=== PATIENT | male | born 1950 | race Caucasian/White ===

== ENCOUNTER 2017-11-14 15:07 | Emergency (ER) | payer OTHER, SELFPAY ==
[2017-11-14 15:08] VITALS: PULSE 70; RESP 15; TEMP 36.8; BMI 26.2
[2017-11-14 15:14] VITALS: BP 146/84; O2SAT 96
--- NOTE | 2017-11-14 15:50 | ED.VISSUMM ---
- ER Visit Summary Date of Service: 11/14/17 Chief Complaint: Chest pain History of Present Illness: The patient is a 67 M presenting with chest pain. Patient states this started a week ago and has been intermittent. He states over the last day it has worsened. Pain is in the left chest and occasionally radiates to both arms and his neck. He states currently the pain is 0/10. At its worst it is 8/10. He denies nausea, vomiting, diaphoresis, shortness of breath. He was admitted to the hospital in January 2017 after a femur fracture. He was found to have an abnormal EKG at that time and underwent heart catheterization per Dr. Choe. This showed proximal LAD occlusion with collateral flow. EF 45-50% with anterior hypokinesis. Depressed LV systolic function. Left main, circumflex, RCA were angiographically normal. At that time he was transferred to [facility] for interventional cardiology and operative repair of his femur. Patient states when he was at [facility] they repaired his femur but did not address his heart. His course was complicated by postoperative PE. He was on Xarelto for 4 months. He no longer takes any medications, he states he did not like the way that Lopressor made him feel. Physical Examination: Vitals are stable. Patient is afebrile. Alert no acute distress. HEENT exam is unremarkable. Neck is supple. Lungs are clear and equal bilaterally. Heart is regular rate and rhythm. Abdomen is soft nontender nondistended. Extremities are unremarkable. Skin is warm and dry. No focal neurologic deficit. Remainder of exam is unremarkable. Emergency Department Course and Treatment: Patient was given aspirin on arrival. EKG is sinus rate is 71 with anterior biphasic T-wave concerning for [facility], similar to previous. CBC, chemistries unremarkable. Troponin is negative. Chest x-ray shows no acute process. On reevaluation patient is chest pain-free. Discussed with Dr. Vásquez. He feels the patient will require high risk PCI. He recommends transfer to [facility]. Discussed with [facility] for transfer. Disposition: Transfer [facility] Impression: Chest pain, unstable angina This note was generated with [employer] dictation software. It may contain incorrect words, spelling, and punctuation that were not noted in review of the chart prior to signing ED Disposition - Plan for ED Patient: Chief Complaint: Chest Pain Referrals: Care Physician,Malou Primary [NON-STAFF] -
[2017-11-14] MEDS: Aspirin 81 MG TAB.CHEW 324 MG PO (15:51)
[2017-11-14 15:52] VITALS: O2SAT 97
--- NOTE | 2017-11-14 15:56 | NURSING ---
FAXED RELEASE OF INFO TO [facility]
[2017-11-14 16:02] LABS: Absolute Neutrophil Count 4.6 X10^3/uL (2.0-7.7); Basophil# 0.03 X10^3/uL; Basophil% 0.4 % (0-1); Eosinophil# 0.31 X10^3/uL; Eosinophils% 4.3 % (0-5); Hematocrit 41.2 % (40-54); Hemoglobin 13.2 g/dl (13.0-16.5); Lymphocyte % 23.5 % (19-41); Mean Corpuscular Hgb 28.8 pg (27.0-32.0); Mean Platelet Vol. 11.2 fl (6.2-12.0); Monocyte# 0.57 X10^3/uL; Monocyte% 7.9 % (0-10); Neutrophil # 4.62 X10^3/uL (2.7-7.7); Neutrophil % 63.9 % (47-70); Platelet Count 238 K/mm3 (150-450); RBC Distribution Width CV 14.5 % (11.6-14.6); RBC Distribution Width SD 47.5 fl (35.1-43.9); Red Blood Count 4.58 M/mm3 (4.6-6.2); White Blood Count 7.2 K/mm3 (4.4-11.0)
[2017-11-14 16:04] LABS: POSITIVE COUNT NO; POSITIVE DIFFERENTIAL NO; POSITIVE MORPHOLOGY NO
[2017-11-14 16:13] LABS: Anion Gap 6 (5-15); BUN 19 mg/dL (7-18); BUN/Creat Ratio 19.8 RATIO (10-20); Calcium,Total 9.2 mg/dL (8.5-10.1); Chloride 108 mmol/L (98-107); Creatinine, Serum 0.96 mg/dL (0.70-1.30); EST Glomerular Filtration Rate 84 mL/min (>60); Est Glom Filt Rate - Afr Amer 101 mL/min (>60); Estimated Creatinine Clearance 74.22 ml/min; Glucose 91 mg/dL (74-106); Potassium 4.5 mmol/L (3.5-5.1); Sodium Level 140 mmol/L (136-145)
[2017-11-14 17:00] VITALS: BP 145/86; PULSE 65; RESP 17; O2SAT 96
[2017-11-14 18:52] VITALS: BP 162/90; PULSE 73; RESP 16; O2SAT 98
[2017-11-14 19:29] VITALS: BP 153/83; PULSE 75; RESP 18; O2SAT 96
== END 2017-11-14 19:46 | disposition short-term general hospital (02) ==
PROVIDERS: Emergency Provider Emergency Medicine; Family Provider Student in an Organized Health Care Education/Training Program; PCP Student in an Organized Health Care Education/Training Program
DX: I20.0 Unstable angina (principal); Z86.711 Personal history of pulmonary embolism
CPT/HCPCS: 71045; 80048; 84484; 85025; 93005; 99285; J7030; A4216

== ENCOUNTER 2017-11-29 08:21 | Emergency (ER) | payer OTHER, SELFPAY ==
[2017-11-29 08:22] VITALS: BP 123/65; PULSE 75; RESP 18; TEMP 37.1; O2SAT 98; BMI 25.0
--- NOTE | 2017-11-29 08:35 | ED.VISSUMM ---
- ER Visit Summary Date of Service: 11/29/17 Chief Complaint: Left thoracic back pain History of Present Illness: The patient is a 67 M with a recent bypass surgery on November 17 presents with left back pain that started yesterday. He has been using his arms more often. He has no fever chills no cough no chest pain or shortness of breath. The pain does extend into his left posterior shoulder region. He feels like it is a muscle spasm. He has no abdominal pain. Pain is worse with twisting and moving it is mild to moderate and constant. Physical Examination: Not appear in acute distress. Moist mucous membranes, no obvious facial deformity No C-spine tenderness supple neck. Regular rate and rhythm without any obvious murmurs. There is a relatively new scar over the anterior chest wall region this is healing well without any signs of infection. Clear lungs bilaterally speaking in full sentences without any obvious respiratory distress Abdomen soft and nontender no guarding or rebound Moves all extremities without any difficulty or pain. He has reproducible pain over his left trapezius and upper back region. There is muscle spasm on my examination compared to the other side. Skin does not show any obvious rashes or lesions, no trauma. Alert oriented ?3 with no gross focal deficit Emergency Department Course and Treatment: Patient had an unremarkable workup. Clinically patient has trapezius strain, thoracic strain. Because of the recent surgery x-ray and blood work were obtained, these were unremarkable. He is discharged with reassurance. Discharge stable condition Impression: [Thoracic strain] This note was generated with [employer] dictation software. It may contain incorrect words, spelling, and punctuation that were not noted in review of the chart prior to signing ED Disposition - Plan for ED Patient: Chief Complaint: Back Referrals: Nichelle Patel MD [Primary Care Provider] -
[2017-11-29 08:37] VITALS: BP 135/80; PULSE 70; RESP 18; O2SAT 99
[2017-11-29 08:45] LABS: Absolute Lymphocyte Count 1.79 X10^3/ul (0.83-4.51); Absolute Neutrophil Count 7.1 X10^3/uL (2.0-7.7); Basophil# 0.05 X10^3/uL; Basophil% 0.5 % (0-1); Eosinophil# 0.65 X10^3/uL; Eosinophils% 6.1 % (0-5); Hematocrit 37.6 % (40-54); Hemoglobin 11.8 g/dl (13.0-16.5); Lymphocyte # 1.79 X10^3/ul (4.0); Lymphocyte % 16.9 % (19-41); Mean Corp Hgb Conc 31.4 g/gl (32-36); Mean Corpuscular Hgb 28.8 pg (27.0-32.0); Mean Corpuscular Volume 91.7 fL (80-94); Mean Platelet Vol. 9.2 fl (6.2-12.0); Monocyte# 0.98 X10^3/uL; Monocyte% 9.3 % (0-10); Neutrophil # 7.07 X10^3/uL (2.7-7.7); Neutrophil % 66.7 % (47-70); Platelet Count 606 K/mm3 (150-450); RBC Distribution Width CV 13.8 % (11.6-14.6); RBC Distribution Width SD 45.3 fl (35.1-43.9); White Blood Count 10.6 K/mm3 (4.4-11.0)
[2017-11-29 08:50] LABS: POSITIVE COUNT NO; POSITIVE DIFFERENTIAL NO; POSITIVE MORPHOLOGY NO
[2017-11-29 08:57] LABS: ALB/GLOB Ratio 0.8 RATIO (0.9-2.4); AST(SGOT) 17 U/L (15-37); Alanine Aminotransfer ALT/SGPT 63 U/L (16-61); Albumin, Serum 3.4 g/dL (3.2-5.0); Alkaline Phosphatase 166 U/L (45-117); Anion Gap 11 (5-15); BUN 14 mg/dL (7-18); BUN/Creat Ratio 15.9 RATIO (10-20); Chloride 102 mmol/L (98-107); Creatinine, Serum 0.88 mg/dL (0.70-1.30); EST Glomerular Filtration Rate 92 mL/min (>60); Est Glom Filt Rate - Afr Amer 111 mL/min (>60); Estimated Creatinine Clearance 80.97 ml/min; Globulin 4.3 g/dL (2.2-4.2); Glucose 88 mg/dL (74-106); Potassium 4.1 mmol/L (3.5-5.1); Protein, Total 7.7 g/dL (6.4-8.2); Sodium Level 142 mmol/L (136-145)
--- NOTE | 2017-11-29 09:25 | ED.DEP ---
ED Disposition - Plan for ED Patient: Disposition: Home or Assisted Living Chief Complaint: Back Instructions: ED Sprain Thoracic Spine Referrals: Nichelle Patel MD [Primary Care Provider] -
[2017-11-29 09:35] VITALS: BP 127/77; PULSE 69; RESP 15; O2SAT 97
== END 2017-11-29 09:36 | disposition home or self-care (01) ==
PROVIDERS: Emergency Provider Emergency Medicine; Family Provider Student in an Organized Health Care Education/Training Program; PCP Student in an Organized Health Care Education/Training Program
DX: S29.012A Strain of muscle and tendon of back wall of thorax, initial encounter (principal); M62.830 Muscle spasm of back; X58.XXXA Exposure to other specified factors, initial encounter; Y93.9 Activity, unspecified; Y92.9 Unspecified place or not applicable; I25.10 Atherosclerotic heart disease of native coronary artery without angina pectoris; I10 Essential (primary) hypertension; Z86.39 Personal history of other endocrine, nutritional and metabolic disease; Z95.1 Presence of aortocoronary bypass graft; Z79.899 Other long term (current) drug therapy
CPT/HCPCS: 71045; 80053; 85025; 93005; 99283; A4216

== ENCOUNTER 2018-06-24 07:01 | Inpatient (IN) | payer OTHER, SELFPAY ==
[2018-06-24] VITALS (15 sets, daily range): BP systolic 114–158; BP diastolic 63–99; PULSE 59–78; RESP 16–18; TEMP 36.3–37; O2SAT 94–100; BMI 21.0; BMI 27.1; BMI 27.2
--- NOTE | 2018-06-24 07:06 | EKG12_ITS ---
Test Reason : CP Blood Pressure : / mmHG Vent. Rate : 081 BPM Atrial Rate : 081 BPM P-R Int : 164 ms QRS Dur : 086 ms QT Int : 370 ms P-R-T Axes : 063 038 086 degrees QTc Int : 429 ms Normal sinus rhythm T wave abnormality, consider lateral ischemia Abnormal ECG Confirmed by LOUIE RIBERA, BLANCA ([id number]), pictures editor DANILO VELASQUEZ ([id number]) on 06/27/2018 10:59:31 AM Referred By: LALITHA Confirmed By:BLANCA PALMA MD
--- NOTE | 2018-06-24 07:06 | RAD_ITS ---
STUDY: X-RAY CHEST REASON FOR EXAM: Male, 68 years old. Chest pain. TECHNIQUE: Single AP portable view of the chest. COMPARISON: November 29, 2017. FINDINGS: Cardiac monitoring leads are present. Patient is status post sternotomy. The lungs are clear and hyperexpanded. There is no demonstrated pleural abnormality. Normal size heart. Normal mediastinum and mary. Normal visualized pulmonary arteries. There is atherosclerotic calcification of the aortic arch with tortuosity. Normal visualized thoracic spine. Normal visualized ribs, clavicles, and shoulders. There is no demonstrated abnormality of the visualized soft tissue structures of the upper abdomen. RAD/Chest 1 View (Portable) IMPRESSION: No radiographic evidence of acute cardiopulmonary disease. Electronically Signed: Tamera Owens MD at 9:01 EDT , Service support ,
[2018-06-24] MEDS: Aspirin 81 MG TAB.CHEW 324 MG PO (07:15)
[2018-06-24 07:19] LABS: Absolute Lymphocyte Count 1.76 X10^3/ul (0.83-4.51); Absolute Neutrophil Count 3.3 X10^3/uL (2.0-7.7); Basophil# 0.03 X10^3/uL; Basophil% 0.5 % (0-1); Eosinophil# 0.22 X10^3/uL; Eosinophils% 3.9 % (0-5); Hematocrit 42.4 % (40-54); Hemoglobin 14.1 g/dl (13.0-16.5); Lymphocyte # 1.76 X10^3/ul (4.0); Lymphocyte % 30.9 % (19-41); Mean Corp Hgb Conc 33.3 g/gl (32-36); Mean Corpuscular Hgb 29.6 pg (27.0-32.0); Mean Corpuscular Volume 89.1 fL (80-94); Mean Platelet Vol. 10.3 fl (6.2-12.0); Monocyte# 0.42 X10^3/uL; Monocyte% 7.4 % (0-10); Neutrophil # 3.27 X10^3/uL (2.7-7.7); Neutrophil % 57.3 % (47-70); Platelet Count 220 K/mm3 (150-450); RBC Distribution Width CV 13.7 % (11.6-14.6); RBC Distribution Width SD 44.9 fl (35.1-43.9); Red Blood Count 4.76 M/mm3 (4.6-6.2); White Blood Count 5.7 K/mm3 (4.4-11.0)
[2018-06-24 07:21] LABS: POSITIVE COUNT NO; POSITIVE DIFFERENTIAL NO; POSITIVE MORPHOLOGY NO
--- NOTE | 2018-06-24 07:40 | ED.VIS.CHEST ---
History of Present Illness Chief Complaint: Chest Pain Informant: Patient Onset: Days Activity at onset: Unknown - Patient is a poor informant. He is unable to qualitate the pain. After giving examples he still had difficulty. He reports at times is burning. At times it squeezing. 2 days ago the discomfort he experienced was similar to the discomfort he had prior to his two-vessel bypass surgery. He had coronary bypass surgery October 2017. Quality: Aching, Burning, Tightness Location: Substernal Current Severity: Mild Maximum Severity: Severe Worsened By: - - Is tired Relieved By: Nothing Associated Symptoms: Diaphoresis, Dyspnea. Negative for: Cough, Fever, Lightheadedness, Acid Reflux, Palpitations Narrative: Patient is an elderly male who presents because of chest pain that started several days ago. Initially he stated the pain was constant. He then commented it was not. Then he made the comment it waxes and wanes. Patient had difficulty describing what the discomfort felt like. After he was given numerous examples to help him he still had difficulty. He then was given more specific examples and states it is at times burning. At times it is tightness. There was occasion with shortness of breath and possible diaphoresis. Patient presently having discomfort. Patient was unaware that he is on a cholesterol medication. He states he is compliant with his medications. He denies symptoms of claudication. Prior Similar Symptoms: Yes, With Prior Angina Recent Illness/Hospitalization: No - Past Medical History (1) Atherosclerotic heart disease of [place] coronary artery without angina pectoris Status: Chronic Comment: Pedicled ARZOLA graft to LAD, SVG to ramus branch(diagonal) per Dr. Enrique Baltazar @ [facility] (2) Essential (primary) hypertension Status: Chronic (3) Nonrheumatic mitral valve regurgitation Status: Chronic Comment: 1+ per echo 11/15/17 @ [facility]; EF 55-60%, (4) Pure hypercholesterolemia Status: Chronic (5) S/P CABG x 2 Status: Chronic Comment: Pedicled ARZOLA graft to LAD, SVG to ramus branch(diagonal) per Dr. Enrique Baltazar @ [facility] (6) Unstable angina Status: Resolved Past Medical History - Allergies and Home Meds Allergies/Adverse Reactions: Allergies No Known Allergies Allergy (Verified 06/24/18 07:01) Primary Care Physician: Nichelle Patel MD [Primary Care Provider] - Prior records reviewed: Yes - In addition to medical problems listed by patient he does have hypertension Surgical History: coronary bypass surgery - October 2017, two-vessel Lives: Spouse/ Significant Other Smoking Status: Never smoker Alcohol: None Drugs: None - Family History Maternal Family History: Family History (Last Updated 12/27/17 @ 09:32 by Anna Marie Lai) Father Colon cancer CVA (cerebral vascular accident) Family History: Reports: No pertinent history Paternal Family History: Family History (Last Updated 12/27/17 @ 09:32 by Anna Marie Lai) Father Colon cancer CVA (cerebral vascular accident) Family History: Reports: No pertinent history Review of Systems General: Denies: Chills, Fever, Sweats Eyes: Denies: Visual changes - bilaterally, Blurred Vision - bilaterally, Diplopia ENT: Denies: Rhinorrhea, Sore throat Cardiovascular: Reports: Chest pain Respiratory: Reports: Dyspnea, Dyspnea on exertion, Orthopnea - Chronic 2 pillow orthopnea. Denies: Cough Gastrointestinal: Denies: Abdominal pain, Nausea, Vomiting, Diarrhea, Melena, Hematochezia Genitourinary: Denies: Dysuria, Hematuria, Frequency Musculoskeletal: Denies: Back pain, Extremity Pain Skin: Denies: Rash, Wounds Neurological: Denies: Headache, Weakness, Parasthesia, Numbness, -, - Allergy: Denies: Uticaria, Swelling of the mouth, Swelling of the tongue, -, - Physical Exam Vital Signs/Narrative: Vital Signs Temp Pulse Resp BP Pulse Ox 06/24/18 07:33 96 06/24/18 07:26 78 148/89 H 06/24/18 07:02 97.9 F 75 18 158/99 H 97 Inital Vital Signs reviewed: Yes General: Well nourished, Well developed, No Acute Distress Head: Normocephalic, Atraumatic Eyes: Perrl, EOMI. Negative for: Pale conjunctiva, Scleral icterus ENT: Moist mucous membranes, No rhinorrhea Neck: Supple, Nontender, No lymphadenopathy, No JVD Cardiovascular: Regular rate, Regular rhythm, No murmurs, Normal S1, Normal S2 Respiratory: No distress, CTA bilaterally, Chest nontender Abdomen: Soft, Nontender, Nondistended, Normal bowel sounds, No masses. Negative for: Tender, Hepatomegaly, Splenomegaly, Pulsatile mass Back: Nontender, Normal Inspection Extremities: Nontender - DP and PT pulse palpable. Patient has hair on his toes., No edema Skin: Normal color, No rash. Negative for: Cyanosis, Jaundice Neurological: Alert, Oriented x3, Cranial nerves II-XII grossly intact, Normal Strength, Normal Sensation Psychological: Normal affect, Normal Mood Diagnostic/Tx/Re-eval Chest X-Ray - ED: 1 View, Normal, Heart, Lungs, Mediastinum, Bony Structures, No Acute Disease, - - Sternal wires noted. 06/24/18 07:06 Chest 1 View (Portable) [RAD] Stat Laboratory Results 06/24/18 06/24/18 07:00 07:00 WBC 5.7 RBC 4.76 Hgb 14.1 Hct 42.4 MCV 89.1 MCH 29.6 MCHC 33.3 RDW 13.7 RDW Differential 44.9 H Plt Count 220 MPV 10.3 Immature Gran % (Auto) 0.000 Neut % (Auto) 57.3 Lymph % (Auto) 30.9 [place] % (Auto) 7.4 Eos % (Auto) 3.9 Baso % (Auto) 0.5 Absolute Neuts (auto) 3.3 Absolute Lymphs (auto) 1.76 Total Counted Not Reportable Sodium 141 Potassium 3.7 Chloride 107 Carbon Dioxide 26.0 Anion Gap 8 BUN 14 Creatinine 0.99 Estim Creat Clear Calc 71.01 Est GFR (MDRD) Af Amer 97 Est GFR (MDRD) Non-Af 80 BUN/Creatinine Ratio 14.1 Glucose 108 H Calcium 8.8 Troponin I < 0.015 - Rhythm Strip Rhythm Strip: Sinus Rhythm Rate: 77 Ectopy: None - EKG Initial EKG Interpretation: Sinus Rhythm - Ventricular rate is 81. MI interval is within normal limits, 164 ms. QRS duration normal. QT interval normal. [place] normal. There are lateral ischemic changes and will need old EKG for comparison. Treatment: Aspirin, NTG SL - Medical Decision Making Patient is a poor informant. There are parts of his history that are concerning for cardiac disease and especially the fact that he reports he had an episode 2 days ago that was similar to the pain he had prior to his two-vessel bypass surgery. Need to evaluate for cardiac etiology versus GI etiology versus pulmonary. Case was discussed with Dr. Vásquez. He was informed the patient's history, physical findings and cath report by Dr. Choe. Did not have access to operative report and cath report from [facility]. In light of patient's history, past medical history and concerns that this represents coronary disease he will receive 1 mg/kg of Lovenox subcu. Dr. Vásquez will review records from [facility] and determine if stress test is warranted versus cardiac cath. Patient was informed I spoke with Dr. Bubba Vásquez. He was informed that he would be staying in the hospital. The hospitalist was made aware of patient's history, physical and discussion with Dr. Vásquez. ED Disposition - Plan for ED Patient: Disposition: Acute Care Hospital [facility] Diagnosis: Central chest pain, Atherosclerotic heart disease of [place] coronary artery without angina pectoris, Essential (primary) hypertension, Pure hypercholesterolemia, Nonrheumatic mitral valve regurgitation Referrals: Nichelle Patel MD [Primary Care Provider] -
[2018-06-24 07:48] LABS: Anion Gap 8 (5-15); BUN 14 mg/dL (7-18); BUN/Creat Ratio 14.1 RATIO (10-20); Calcium,Total 8.8 mg/dL (8.5-10.1); Chloride 107 mmol/L (98-107); Creatinine, Serum 0.99 mg/dL (0.70-1.30); EST Glomerular Filtration Rate 80 mL/min (>60); Est Glom Filt Rate - Afr Amer 97 mL/min (>60); Estimated Creatinine Clearance 71.01 ml/min; Glucose 108 mg/dL (74-106); Potassium 3.7 mmol/L (3.5-5.1); Sodium Level 141 mmol/L (136-145)
--- NOTE | 2018-06-24 07:50 | ED.DCSUM_ITS ---
History of Present Illness Chief Complaint: Chest Pain Informant: Patient Onset: Days Activity at onset: Unknown - Patient is a poor informant. He is unable to qualitate the pain. After giving examples he still had difficulty. He reports at times is burning. At times it squeezing. 2 days ago the discomfort he experienced was similar to the discomfort he had prior to his two-vessel bypass surgery. He had coronary bypass surgery October 2017. Quality: Aching, Burning, Tightness Location: Substernal Current Severity: Mild Maximum Severity: Severe Worsened By: - - Is tired Relieved By: Nothing Associated Symptoms: Diaphoresis, Dyspnea. Negative for: Cough, Fever, Lightheadedness, Acid Reflux, Palpitations Narrative: Patient is an elderly male who presents because of chest pain that started several days ago. Initially he stated the pain was constant. He then commented it was not. Then he made the comment it waxes and wanes. Patient had difficulty describing what the discomfort felt like. After he was given numerous examples to help him he still had difficulty. He then was given more specific examples and states it is at times burning. At times it is tightness. There was occasion with shortness of breath and possible diaphoresis. Patient presently having discomfort. Patient was unaware that he is on a cholesterol medication. He states he is compliant with his medications. He denies symptoms of claudication. Prior Similar Symptoms: Yes, With Prior Angina Recent Illness/Hospitalization: No - Past Medical History (1) Atherosclerotic heart disease of [place] coronary artery without angina pectoris Status: Chronic Comment: Pedicled ARZOLA graft to LAD, SVG to ramus branch(diagonal) per Dr. Enrique Baltazar @ [facility] (2) Essential (primary) hypertension Status: Chronic (3) Nonrheumatic mitral valve regurgitation Status: Chronic Comment: 1+ per echo 11/15/17 @ [facility]; EF 55-60%, (4) Pure hypercholesterolemia Status: Chronic (5) S/P CABG x 2 Status: Chronic Comment: Pedicled ARZOLA graft to LAD, SVG to ramus branch(diagonal) per Dr. Enrique Baltazar @ [facility] (6) Unstable angina Status: Resolved Past Medical History - Allergies and Home Meds Allergies/Adverse Reactions: Allergies No Known Allergies Allergy (Verified 06/24/18 07:01) Primary Care Physician: Nichelle Patel MD [Primary Care Provider] - Prior records reviewed: Yes - In addition to medical problems listed by patient he does have hypertension Surgical History: coronary bypass surgery - October 2017, two-vessel Lives: Spouse/ Significant Other Smoking Status: Never smoker Alcohol: None Drugs: None - Family History Maternal Family History: Family History (Last Updated 12/27/17 @ 09:32 by Anna Marie Lai) Father Colon cancer CVA (cerebral vascular accident) Family History: Reports: No pertinent history Paternal Family History: Family History (Last Updated 12/27/17 @ 09:32 by Anna Marie Lai) Father Colon cancer CVA (cerebral vascular accident) Family History: Reports: No pertinent history Review of Systems General: Denies: Chills, Fever, Sweats Eyes: Denies: Visual changes - bilaterally, Blurred Vision - bilaterally, Diplopia ENT: Denies: Rhinorrhea, Sore throat Cardiovascular: Reports: Chest pain Respiratory: Reports: Dyspnea, Dyspnea on exertion, Orthopnea - Chronic 2 pillow orthopnea. Denies: Cough Gastrointestinal: Denies: Abdominal pain, Nausea, Vomiting, Diarrhea, Melena, Hematochezia Genitourinary: Denies: Dysuria, Hematuria, Frequency Musculoskeletal: Denies: Back pain, Extremity Pain Skin: Denies: Rash, Wounds Neurological: Denies: Headache, Weakness, Parasthesia, Numbness, -, - Allergy: Denies: Uticaria, Swelling of the mouth, Swelling of the tongue, -, - Physical Exam Vital Signs/Narrative: Vital Signs Temp Pulse Resp BP Pulse Ox 06/24/18 07:33 96 06/24/18 07:26 78 148/89 H 06/24/18 07:02 97.9 F 75 18 158/99 H 97 Inital Vital Signs reviewed: Yes General: Well nourished, Well developed, No Acute Distress Head: Normocephalic, Atraumatic Eyes: Perrl, EOMI. Negative for: Pale conjunctiva, Scleral icterus ENT: Moist mucous membranes, No rhinorrhea Neck: Supple, Nontender, No lymphadenopathy, No JVD Cardiovascular: Regular rate, Regular rhythm, No murmurs, Normal S1, Normal S2 Respiratory: No distress, CTA bilaterally, Chest nontender Abdomen: Soft, Nontender, Nondistended, Normal bowel sounds, No masses. Negative for: Tender, Hepatomegaly, Splenomegaly, Pulsatile mass Back: Nontender, Normal Inspection Extremities: Nontender - DP and PT pulse palpable. Patient has hair on his toes., No edema Skin: Normal color, No rash. Negative for: Cyanosis, Jaundice Neurological: Alert, Oriented x3, Cranial nerves II-XII grossly intact, Normal Strength, Normal Sensation Psychological: Normal affect, Normal Mood Diagnostic/Tx/Re-eval Chest X-Ray - ED: 1 View, Normal, Heart, Lungs, Mediastinum, Bony Structures, No Acute Disease, - - Sternal wires noted. 06/24/18 07:06 Chest 1 View (Portable) [RAD] Stat Laboratory Results 06/24/18 06/24/18 07:00 07:00 WBC 5.7 RBC 4.76 Hgb 14.1 Hct 42.4 MCV 89.1 MCH 29.6 MCHC 33.3 RDW 13.7 RDW Differential 44.9 H Plt Count 220 MPV 10.3 Immature Gran % (Auto) 0.000 Neut % (Auto) 57.3 Lymph % (Auto) 30.9 [place] % (Auto) 7.4 Eos % (Auto) 3.9 Baso % (Auto) 0.5 Absolute Neuts (auto) 3.3 Absolute Lymphs (auto) 1.76 Total Counted Not Reportable Sodium 141 Potassium 3.7 Chloride 107 Carbon Dioxide 26.0 Anion Gap 8 BUN 14 Creatinine 0.99 Estim Creat Clear Calc 71.01 Est GFR (MDRD) Af Amer 97 Est GFR (MDRD) Non-Af 80 BUN/Creatinine Ratio 14.1 Glucose 108 H Calcium 8.8 Troponin I < 0.015 - Rhythm Strip Rhythm Strip: Sinus Rhythm Rate: 77 Ectopy: None - EKG Initial EKG Interpretation: Sinus Rhythm - Ventricular rate is 81. [place] interval is within normal limits, 164 ms. QRS duration normal. QT interval normal. [place] normal. There are lateral ischemic changes and will need old EKG for comparison. Treatment: Aspirin, NTG SL - Medical Decision Making Patient is a poor informant. There are parts of his history that are concerning for cardiac disease and especially the fact that he reports he had an episode 2 days ago that was similar to the pain he had prior to his two-vessel bypass surgery. Need to evaluate for cardiac etiology versus GI etiology versus pulmonary. Case was discussed with Dr. Vásquez. He was informed the patient's history, physical findings and cath report by Dr. Choe. Did not have access to operative report and cath report from [facility]. In light of patient's history, past medical history and concerns that this represents coronary disease he will receive 1 mg/kg of Lovenox subcu. Dr. Vásquez will review records from [facility] and determine if stress test is warranted versus cardiac cath. Patient was informed I spoke with Dr. Bubba Vásquez. He was informed that he would be staying in the hospital. The hospitalist was made aware of patient's history, physical and discussion with Dr. Vásquez. ED Disposition - Plan for ED Patient: Disposition: Acute Care Hospital [facility] Diagnosis: Central chest pain, Atherosclerotic heart disease of [place] coronary artery without angina pectoris, Essential (primary) hypertension, Pure hypercholesterolemia, Nonrheumatic mitral valve regurgitation Referrals: Nichelle Patel MD [Primary Care Provider] -
--- NOTE | 2018-06-24 08:01 | NURSING ---
DR MCNEAL PAGED
--- NOTE | 2018-06-24 08:17 | NURSING ---
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
--- NOTE | 2018-06-24 08:21 | NURSING ---
PCU OBS CH, HX OF CORONARY DISEASE DOT
[2018-06-24] MEDS: Enoxaparin 80 MG/0.8 ML Syringe 70 MG SC (08:53)
--- NOTE | 2018-06-24 09:05 | ECHOCS_ITS ---
Reason For Study: Chest Pain Procedure This was a 2D Doppler, Color Flow transthoracic echocardiogram. Contrast injection was performed. Exam performed portable in patient room. Left Ventricle Normal LV size. Segmental dysfunction with preserved ejection fraction (see wall motion). The estimated ejection fraction is 55 %. No evidence for diastolic dysfunction. Basal anteroseptal: Hypokinetic. Mid-Anterior : Hypokinetic. Mid-anteroseptal : Hypokinetic. Anterior [place] : Hypokinetic. Inferior [place] : Hypokinetic. Lateral [place] : Akinetic. Septal [place] : Akinetic. Right Ventricle Normal RV size. Normal systolic function. Atria Normal left atrium. Normal right atrium. No doppler evidence for ASD. Mitral Valve There is no mitral annular calcification. Normal mitral valve. Mild (1+) mitral valve insufficiency. Tricuspid Valve Normal tricuspid valve. Trivial tricuspid valve insufficiency. Aortic Valve Trisinus/trileaflet aortic valve. Mild focal aortic valve thickening. Trivial aortic valve insufficiency. Pulmonic Valve The pulmonic valve is not well visualized. Great Vessels Normal sized aortic root. Pericardium/Pleural No pericardial effusion. Medication Definity0.5ml given slow IV push to enhance endocardial definition. MMode/2D Measurements & Calculations LVIDd: 4.7 cm IVSd: 1.2 cm Ao root diam: 3.1 cm LVIDs: 3.1 cm LVPWd: 1.1 cm RVDd: 4.0 cm FS: 33.8 % LAV(MOD-bp): 32.5 ml LVAd ap4: 31.9 cm2 SV(MOD-sp4): 51.3 ml LAV(MOD-bp) Indexed: 17.4 ml/m2 EDV(MOD-sp4): 100.6 ml LAV(MOD-sp2): 34.7 ml EDV(sp4-el): 103.4 ml LAV(MOD-sp4): 30.8 ml LVAs ap4: 21.6 cm2 ESV(MOD-sp4): 49.3 ml ESV(sp4-el): 51.4 ml EF(MOD-sp4): 51.0 % EF(sp4-el): 50.4 % SV(sp4-el): 52.1 ml LA A4 area: 13.0 cm2 LA dimension(2D): 3.9 cm RA A4 area: 12.9 cm2 Doppler Measurements & Calculations MV E max zion: 57.4 cm/sec Lat Peak E' [place]: 10.3 cm/sec Med Peak E' [place]: 7.1 cm/sec MV A max zion: 87.9 cm/sec E/E' lat: 5.6 E/E' med: 8.1 MV E/A: 0.65 Ao V2 max: 146.5 cm/sec LV V1 max: 101.9 cm/sec PA V2 max: 70.2 cm/sec Ao max P.6 mmHg LV V1 max P.2 mmHg Ao V2 mean: 111.8 cm/sec Ao mean P.3 mmHg Ao V2 VTI: 31.1 cm Interpretation Summary Contrast injection was performed. Segmental dysfunction with preserved ejection fraction (see wall motion). The estimated ejection fraction is 55 %. Mild (1+) mitral valve insufficiency. Trivial tricuspid valve insufficiency. Mild focal aortic valve thickening. Trivial aortic valve insufficiency. No evidence for diastolic dysfunction. Ordering Physician: Moy Engel Referring Physician: Nichelle Patel Performed By: Maria Hines, DIEGO, RVT
--- NOTE | 2018-06-24 09:05 | EKG12_ITS ---
Test Reason : CP ADMIT Blood Pressure : / mmHG Vent. Rate : 068 BPM Atrial Rate : 068 BPM P-R Int : 162 ms QRS Dur : 088 ms QT Int : 420 ms P-R-T Axes : 054 036 095 degrees QTc Int : 446 ms Normal sinus rhythm T wave abnormality, consider anterolateral ischemia Abnormal ECG Confirmed by TASHA RIBERA, YEIMI ([id number]), film editor supervisor BRENDAN GUPTA ([id number]) on 07/03/2018 11:31:04 AM Referred By: Confirmed By:YEIMI CORDOVA MD
--- NOTE | 2018-06-24 09:18 | EKG12_ITS ---
Test Reason : Blood Pressure : / mmHG Vent. Rate : 073 BPM Atrial Rate : 073 BPM P-R Int : 172 ms QRS Dur : 092 ms QT Int : 386 ms P-R-T Axes : 055 033 088 degrees QTc Int : 425 ms Normal sinus rhythm Nonspecific T wave abnormality Poor R- Wave Progression Abnormal ECG Confirmed by TASHA RIBERA, YEIMI ([id number]), magazine editor BRENDAN GUPTA ([id number]) on 07/03/2018 12:18:32 PM Referred By: Confirmed By:YEIMI CORDOVA MD
--- NOTE | 2018-06-24 10:30 | PN_ITS ---
Patient Problems: Active and Suspected Problems (Last Updated 12/29/17 @ 11:31 by Betito Hines NP- C) Central chest pain (Acute) Subjective: There is a 68-year-old gentleman with history of coronary artery status post two-vessel CABG in [facility] in October 2017 came to ED with chest pain continuous since at 2 AM while sleeping on 06/22 although it fluctuates in severity, gets worse on mild exertion soon with shortness of breath. EKG shows normal sinus rhythm with T wave inversion in 1 and aVL and nonspecific ST-T changes similar to EKG of November 2017. 2 troponins are negative. Troponins are negative. Chest x-ray reported no acute cardiopulmonary disease. He had unstable angina for which cardiac cath done in January 2017 while He was admitted for right intertrochanteric fracture for which he was transferred to [facility] for high risk hip surgery. At that time, coronary angiogram showed EF 45 to 50% with anterior hypokinesis with 100% chronic, proximal LAD occlusion with collateral flow from left to left. Clinical Impression(s) from Imaging Studies Chest X-Ray 06/24/18 07:06 IMPRESSION: No radiographic evidence of acute cardiopulmonary disease. Vitals/I&O's: Vital Signs Temp Pulse Resp BP Pulse Ox 98.6 F 69 18 118/69 94 06/24/18 09:56 06/24/18 09:56 06/24/18 09:56 06/24/18 09:56 06/24/18 09:56 Oxygen Flow Rate (L/min) 2 Oxygen Delivery Method Room Air Weight: 173 lb 11.588 oz Body Mass Index (BMI) 27.1 Laboratory Results 06/24/18 07:00: WBC 5.7, RBC 4.76, Hgb 14.1, Hct 42.4, MCV 89.1, MCH 29.6, MCHC 33.3, RDW 13.7, RDW Differential 44.9 H, Plt Count 220, MPV 10.3, Immature Gran % (Auto) 0.000, Neut % (Auto) 57.3, Lymph % (Auto) 30.9, [place] % (Auto) 7.4, Eos % (Auto) 3.9, Baso % (Auto) 0.5, Absolute Neuts (auto) 3.3, Absolute Lymphs (a uto) 1.76, Total Counted Not Reportable 06/24/18 07:00: Sodium 141, Potassium 3.7, Chloride 107, Carbon Dioxide 26.0, Anion Gap 8, BUN 14, Creatinine 0.99, Estim Creat Clear Calc 71.01, Est GFR (MDRD) Af Amer 97, Est GFR (MDRD) Non-Af 80, BUN/Creatinine Ratio 14.1, Glucose 108 H, Calcium 8.8, Troponin I < 0.015 06/24/18 10:06: Troponin I Pending Current Medications Aspirin (Ecotrin) 81 mg PO DAILY@0800 FITO Atorvastatin Calcium (Lipitor) 40 mg PO QHS FITO Clopidogrel Bisulfate (Plavix) 75 mg PO DAILY [facility] Enoxaparin Sodium (Lovenox) 80 mg 1 mg/kg (70 mg) SC Q12 FITO Isosorbide Mononitrate (Imdur) 30 mg PO DAILY [facility] Metoprolol Tartrate (Lopressor (Beta Chitra)) 50 mg PO BID FITO Nitroglycerin (Nitrostat) 0.4 mg SUBLINGUAL Q5M PRN PRN Reason: CHEST PAIN Medical Necessity - Tobacco Use Smoking Status: Former smoker Assessment/Plan All Active Problems (Last Updated 12/29/17 @ 11:31 by Betito Hines, COAL SCREENER-C) Central chest pain (Acute) Abnormal EKG (Acute 11/15/17) Unstable angina (Resolved) There is a 68-year-old gentleman with history of coronary artery status post two-vessel CABG in [facility] in October 2017 came to ED with chest pain continuous since at 2 AM while sleeping on 06/22 although it fluctuates in severity, gets worse on mild exertion soon with shortness of breath. EKG shows normal sinus rhythm with T wave inversion in 1 and aVL and nonspecific ST-T changes similar to EKG of November 2017. 2 troponins are negative. Troponins are negative. Chest x-ray reported no acute cardiopulmonary disease. He had unstable angina for which cardiac cath done in January 2017 while He was admitted for right intertrochanteric fracture for which he was transferred to [facility] for high risk hip surgery. At that time, coronary angiogram arturo wed EF 45 to 50% with anterior hypokinesis with 100% chronic, proximal LAD occlusion with collateral flow from left to left. Clinical Impression(s) from Imaging Studies Chest X-Ray 06/24/18 07:06
--- NOTE | 2018-06-24 11:08 | PCM.HP.STD ---
Problem List (1) Central chest pain Status: Acute (2) Essential (primary) hypertension Status: Chronic (3) History of left heart catheterization Status: Chronic Comment: 02/13/[address] Choe @ [facility]: 100% occlusion of LAD, recommend CABG but pt needed immediate surgery for right peritrochanteric femur fracture. Per Dr. Santillan @ [facility]:100% occlusion mid LAD, 70% stenosis in proximal LAD, good collaterals from mid PDA to distal LAD. (4) History of kidney stones Status: Chronic (5) Nonrheumatic mitral valve regurgitation Status: Chronic Comment: 1+ per echo 11/15/17 @ [facility]; EF 55-60%, (6) Atherosclerotic heart disease of [place] coronary artery without angina pectoris Status: Chronic Comment: Pedicled ARZOLA graft to LAD, SVG to ramus branch(diagonal) per Dr. Enrique Baltazar @ [facility] (7) S/P CABG x 2 Status: Chronic Comment: Pedicled ARZOLA graft to LAD, SVG to ramus branch(diagonal) per Dr. Enrique Baltazar @ [facility] (8) Abnormal EKG Status: Acute (9) Unstable angina Status: Acute (10) Fracture, intertrochanteric, right femur Status: Chronic Qualifiers: Encounter type: initial encounter Fracture type: closed Comment: Surgical repair 02/05/[address] Wolf, [facility] History of Present Illness Date of Admission: 06/24/18 Chief Complaint: Chest pain [] There is a 68-year-old gentleman with history of coronary artery status post two-vessel CABG in [facility] in October 2017 came to ED with chest pain continuous since at 2 AM while sleeping on 06/22 although it fluctuates in severity, gets worse on mild exertion soon with shortness of breath. EKG shows normal sinus rhythm with T wave inversion in 1 and aVL and nonspecific ST-T changes similar to EKG of November 2017. 2 troponins are negative. Troponins are negative. Chest x-ray reported no acute cardiopulmonary disease. He had unstable angina for which cardiac cath done in January 2017 while He was admitted for right intertrochanteric fracture for which he was transferred to [facility] for high risk hip surgery. At that time, coronary angiogram showed EF 45 to 50% with anterior hypokinesis with 100% chronic, proximal LAD occlusion with collateral flow from left to left. Clinical Impression(s) from Imaging Studies Chest X-Ray 06/24/18 07:06 IMPRESSION: No radiographic evidence of acute cardiopulmonary disease. Past Medical History Past Medical History (Chronic Problems): Chronic Problems (Last Updated 12/27/17 @ 09:56 by Anna Marie Lai) Pure hypercholesterolemia (Chronic) Essential (primary) hypertension (Chronic) History of left heart catheterization (Chronic 11/15/17) 02/13/[address] Choe @ [facility]: 100% occlusion of LAD, recommend CABG but pt needed immediate surgery for right peritrochanteric femur fracture. Per Dr. Santillan @ [facility]:100% occlusion mid LAD, 70% stenosis in proximal LAD, good collaterals from mid PDA to distal LAD. History of kidney stones (Chronic) Nonrheumatic mitral valve regurgitation (Chronic) 1+ per echo 11/15/17 @ [facility]; EF 55-60%, Atherosclerotic heart disease of [place] coronary artery without angina pectoris (Chronic 11/17/17) Pedicled ARZOLA graft to LAD, SVG to ramus branch(diagonal) per Dr. Enrique Baltazar @ [facility] S/P CABG x 2 (Chronic 11/17/17) Pedicled ARZOLA graft to LAD, SVG to ramus branch(diagonal) per Dr. Enrique Baltazar @ [facility] Fracture, intertrochanteric, right femur (Chronic) Surgical repair 02/05/[address] Wolf, [facility] Medical History: Medical History (Last Updated 12/29/17 @ 11:31 by Betito Hines, SPECIAL EDUCATION SECRETARY-C) Pure hypercholesterolemia (Chronic) E78.00 Essential (primary) hypertension (Chronic) I10 History of kidney stones (Chronic) Z87.442 Nonrheumatic mitral valve regurgitation (Chronic) I34.0 1+ per echo 11/15/17 @ [facility]; EF 55-60%, Atherosclerotic heart disease of [place] coronary artery without angina pectoris (Chronic) Onset Date: 11/17/17 I25.10 Pedicled ARZOLA graft to LAD, SVG to ramus branch(diagonal) per Dr. Enrique Baltazar @ [facility] Abnormal EKG (Acute) Onset Date: 11/15/17 R94.31 Unstable angina (Acute) Allergies No Known Allergies Allergy (Verified 06/24/18 07:01) Home Medications: Ambulatory Orders Medication Instructions Recorded aspirin 81 mg tablet,delayed 162 mg PO DAILY tab 12/27/17 release metoprolol tartrate 50 mg tablet 50 mg PO BID #180 tab 02/22/18 [place]-3 1 tab PO DAILY 06/24/18 Surgical History: Surgical History (Last Updated 12/27/17 @ 09:56 by Anna Marie Lai) History of left heart catheterization (Chronic) Onset Date: 11/15/17 Z98.890 02/13/[address] Choe @ [facility]: 100% occlusion of LAD, recommend CABG but pt needed immediate surgery for right peritrochanteric femur fracture. Per Dr. Santillan @ [facility]:100% occlusion mid LAD, 70% stenosis in proximal LAD, good collaterals from mid PDA to distal LAD. S/P CABG x 2 (Chronic) Onset Date: 11/17/17 Z95.1 Pedicled ARZOLA graft to LAD, SVG to ramus branch(diagonal) per Dr. Enrique Baltazar @ [facility] Fracture, intertrochanteric, right femur (Chronic) S72.141A Surgical repair 02/05/[address] Wolf, [facility] Surgical History: coronary bypass surgery - October 2017, two-vessel Lives: Spouse/ Significant Other Smoking Status: Former smoker Alcohol: None Drugs: None - *Family History Maternal Family History: Family History (Last Updated 06/24/18 @ 11:14 by Moy Engel MD) Father CVA (cerebral vascular accident) Mother HEART DISE Other Cancer Heart disease History Items: No pertinent history Paternal Family History: Family History (Last Updated 06/24/18 @ 11:13 by Moy Engel MD) Father CVA (cerebral vascular accident) Mother HEART DISE Other Cancer Colon cancer Heart disease History Items: No pertinent history Review of Systems Constitutional: Denies: Chills, Fever, Weight Change HEENT: Denies: Head Aches, Sinus Congestion, Sinus Drainage Cardiovascular: Reports: Chest Pain, Chest Pressure. Denies: Palpitations Respiratory: Reports: Shortness of breath upon exertion. Denies: Cough, Shortness of breath at rest, Sputum production Gastrointestinal: Denies: Abdominal Pain, Nausea, Vomiting Genitourinary: Denies: Dysuria Musculoskeletal: Denies: Joint Pain, Joint Tenderness Skin: Denies: Rash, Wounds Neurological: Denies: Numbness, Tingling, Focal weakness Psychiatric: Denies: Anxiety, Depression, Homicidal Ideations, Suicidal Ideations Hematologic/ Lymphatic: Denies: Easy Bruising, Easy Bleeding VTE Information - Inpt Only VTE Present on Admission: No VTE Mechan Device Prophylaxis: None VTE Pharm Prophylaxis ordered?: Yes Patient Problems: Active and Suspected Problems (Last Updated 12/29/17 @ 11:31 by Betito Hines SPECIAL EDUCATION SECRETARY-C) Central chest pain (Acute) - Physical Exam General: Alert, Oriented x3, Cooperative HEENT: Atraumatic, PERRLA, EOMI, Normocephalic Neck: Supple, No JVD, Negative Carotid Bruits Lungs: Clear to auscultation, Normal air movement, No rhonchi, No wheeze, No rales Cardiovascular: Regular rate, Regular Rhythm, Normal S1, Normal S2, No murmurs Abdomen: Bowel Sounds Present, Soft, Non Tender, Non-Distended Extremities: No edema, Capillary Refill Less than 3 Seconds Skin: No rashes, No breakdown Musculoskeletal: No Tenderness to Palpation of Joints or Extremities, Arthritic Changes Neurological: Cranial nerves II-XII grossly intact Psych/Mental Status: Normal Affect, Appropriate Vital Signs Temp Pulse Resp BP Pulse Ox 98.6 F 69 18 118/69 94 06/24/18 09:56 06/24/18 09:56 06/24/18 09:56 06/24/18 09:56 06/24/18 09:56 Oxygen Flow Rate (L/min) 2 Oxygen Delivery Method Room Air Weight: 173 lb 11.588 oz Body Mass Index (BMI) 27.1 Laboratory Tests Past 24 Hrs 06/24/18 06/24/18 06/24/18 07:00 07:00 10:06 WBC 5.7 RBC 4.76 Hgb 14.1 Hct 42.4 MCV 89.1 MCH 29.6 MCHC 33.3 RDW 13.7 RDW Differential 44.9 H Plt Count 220 MPV 10.3 Immature Gran % (Auto) 0.000 Neut % (Auto) 57.3 Lymph % (Auto) 30.9 [place] % (Auto) 7.4 Eos % (Auto) 3.9 Baso % (Auto) 0.5 Absolute Neuts (auto) 3.3 Absolute Lymphs (auto) 1.76 Total Counted Not Reportable Sodium 141 Potassium 3.7 Chloride 107 Carbon Dioxide 26.0 Anion Gap 8 BUN 14 Creatinine 0.99 Estim Creat Clear Calc 71.01 Est GFR (MDRD) Af Amer 97 Est GFR (MDRD) Non-Af 80 BUN/Creatinine Ratio 14.1 Glucose 108 H Calcium 8.8 Troponin I < 0.015 < 0.015 Assessment/Plan All Active Problems (Last Updated 12/29/17 @ 11:31 by Betito Hines, CICI-C) Central chest pain (Acute) Abnormal EKG (Acute 11/15/17) Unstable angina (Acute) There is a 68-year-old gentleman with history of coronary artery status post two-vessel CABG in [facility] in October 2017 came to ED with chest pain continuous since at 2 AM while sleeping on 06/22 although it fluctuates in severity, gets worse on mild exertion soon with shortness of breath. EKG shows normal sinus rhythm with T wave inversion in 1 and aVL and nonspecific ST-T changes similar to EKG of November 2017. 2 troponins are negative. Troponins are negative. Chest x-ray reported no acute cardiopulmonary disease. He had unstable angina for which cardiac cath done in January 2017 while He was admitted for right intertrochanteric fracture for which he was transferred to [facility] for high risk hip surgery. At that time, coronary angiogram showed EF 45 to 50% with anterior hypokinesis with 100% chronic, proximal LAD occlusion with collateral flow from left to left. 1. Atypical chest pain concerning for unstable angina: Patient is admitted in PCU. Serial troponin enzymes. 2D echo ordered. Started on aspirin, loading dose of Plavix, Lovenox 1 mg/kg body weight, metoprolol, Nitrostat sublingual. Patient blood pressure is controlled, 118/69 therefore does not need SYEDA/ARB and neither patient is at home. Chemist Biological Dr. Vásquez has been consulted. 2. Coronary artery disease status post two-vessel CABG in October 2017: Home medications continued as mentioned above. 3. Hypertension: Blood pressure is controlled. Patient is not on antihypertensive medications at home except metoprolol. 4. Chronic right intertrochanteric hip fracture status post ORIF in January 2017 IN [facility]: Stable. 5. DVT prophylaxis: On therapeutic dose of Lovenox Clinical Impression(s) from Imaging Studies Chest X-Ray 06/24/18 07:06 IMPRESSION: No radiographic evidence of acute cardiopulmonary disease. Code Visit Inpatient E&M: 52566 Init Hosp L3
[2018-06-24] MEDS: Clopidogrel Bisulfate 300 MG Tablet PO (12:19)
[2018-06-24] MEDS: Metoprolol Tartrate 50 MG Tablet PO ×2 (12:19→22:15)
[2018-06-24] MEDS: Isosorbide Mononitrate 30 MG Tablet PO (12:19)
--- NOTE | 2018-06-24 16:03 | PCM.CONS.C ---
Problem List (1) Chest pain Status: Acute (2) CAD (coronary artery disease) Status: Chronic Qualifiers: Coronary Disease-Associated Artery/Lesion type: [place] artery [place] vs. transplanted heart: [place] heart (3) S/P CABG x 2 Status: Chronic Comment: Pedicled ARZOLA graft to LAD, SVG to ramus branch(diagonal) per Dr. Enrique Baltazar @ [facility] (4) Pure hypercholesterolemia Status: Chronic (5) Essential (primary) hypertension Status: Chronic Reason for Consult Date of Consultation: 06/24/18 History of Present Illness: The patient is a 68 year old white male who has previously been evaluated by Lm Choe MD, who is referred for evaluation of chest discomfort superimposed upon a history of underlying CAD status post CABG. The patient has undergone previous noninvasive and invasive cardiovascular evaluation. It appears that in October 2017 the patient underwent transthoracic echocardiogram at [facility]. According to the report the left ventricle was thought to demonstrate mid to distal anterior wall and apex hypokinesis with an overall LVEF 55-60%. The patient underwent diagnostic cardiac catheterization. Per the report the left main coronary artery was patent, the LAD demonstrated mid occlusion, the LCx had luminal irregularities, the RCA had no stenosis reported, there was right to left collateral flow. The patient subsequently underwent CABG with a ARZOLA to the LAD and an SVG graft to the ramus/diagonal branch. The patient was eventually released home for outpatient cardiovascular follow-up. The patient notes that earlier this week, while in [place], he experienced a significant amount of emotional stress . He states since that time he has had chest discomfort although it worsened yesterday. He notes a somewhat centralized chest discomfort but also notes that his discomfort radiates somewhat to his left pectoral region. He does not recall radiation into the neck or jaw or upper extremities. There has been no associated dyspnea. He does not believe he has had ongoing nausea, emesis, or diaphoresis. He notes based on his worsening symptoms, with no other explanation, he presented to the emergency department for further evaluation. His initial noninvasive evaluation was negative with respect to cardiac enzymes. His ECG demonstrated sinus rhythm with T wave changes potentially compatible with anterolateral myocardial ischemia. He was placed in the PCU for further evaluation and care. Graph his subsequent cardiac enzyme levels have remained negative. A follow-up ECG demonstrated sinus rhythm with anterolateral T wave changes potentially compatible with myocardial ischemia and potentially somewhat more prominent than his previous ECG. He is also undergone evaluation with a transthoracic echocardiogram. The results are as noted below. Interpretation Summary Contrast injection was performed. Segmental dysfunction with preserved ejection fraction (see wall motion). The estimated ejection fraction is 55 %. Mild (1+) mitral valve insufficiency. Trivial tricuspid valve insufficiency. Mild focal aortic valve thickening. Trivial aortic valve insufficiency. No evidence for diastolic dysfunction. He states overall at the present time he feels better. He does note that when his transthoracic echocardiogram was being performed, that he had recurrent chest discomfort in the left pectoral region where the probe was placed. However the same time he states this was somewhat different from other discomforts he has had. Thus he states he has had more than one type of discomfort that has brought him to the hospital. [] Past Medical History Allergies/Adverse Reactions: Allergies No Known Allergies Allergy (Verified 06/24/18 07:01) Home Medications: Ambulatory Orders Medication Instructions Recorded aspirin 81 mg tablet,delayed 162 mg PO DAILY tab 12/27/17 release metoprolol tartrate 50 mg tablet 50 mg PO BID #180 tab 02/22/18 [place]-3 1 tab PO DAILY 06/24/18 Past Medical History (Chronic Problems): Chronic Problems (Last Updated 12/27/17 @ 09:56 by Anna Marie Lai) CAD (coronary artery disease) (Chronic) Pure hypercholesterolemia (Chronic) Essential (primary) hypertension (Chronic) History of left heart catheterization (Chronic 11/15/17) 02/13/[address] Choe @ [facility]: 100% occlusion of LAD, recommend CABG but pt needed immediate surgery for right peritrochanteric femur fracture. Per Dr. Santillan @ [facility]:100% occlusion mid LAD, 70% stenosis in proximal LAD, good collaterals from mid PDA to distal LAD. History of kidney stones (Chronic) Nonrheumatic mitral valve regurgitation (Chronic) 1+ per echo 11/15/17 @ [facility]; EF 55-60%, Atherosclerotic heart disease of [place] coronary artery without angina pectoris (Chronic 11/17/17) Pedicled ARZOLA graft to LAD, SVG to ramus branch(diagonal) per Dr. Enrique Baltazar @ [facility] S/P CABG x 2 (Chronic 11/17/17) Pedicled ARZOLA graft to LAD, SVG to ramus branch(diagonal) per Dr. Enrique Baltazar @ [facility] Fracture, intertrochanteric, right femur (Chronic) Surgical repair 02/05/[address] Wolf, [facility] Surgical History: coronary bypass surgery - October 2017, two-vessel - *Family History Maternal Family History: Family History (Last Updated 06/24/18 @ 11:14 by Moy Engel MD) Father CVA (cerebral vascular accident) Mother HEART DISE Other Cancer Heart disease History Items: No pertinent history Paternal Family History: Family History (Last Updated 06/24/18 @ 11:14 by Moy Engel MD) Father CVA (cerebral vascular accident) Mother HEART DISE Other Cancer Heart disease History Items: No pertinent history Lives: Spouse/ Significant Other Smoking Status: Former smoker Alcohol: None Drugs: None Review of Systems - Review of Systems General: Denies: Fever, Night Sweats, Fatigue Cardiovascular: Reports: Chest Discomfort. Denies: Shortness of Breath, Orthopnea, PND, Peripheral Edema, Palpitations, Lightheadedness, Dizziness, Near Syncope, Syncope Respiratory: Denies: Cough, Sputum Production, Hemoptysis Gastrointestinal: Denies: Hematemesis, Hematochezia, Melena Subjectve: This is a 68-year-old white male who appears to be resting comfortably at the moment in no acute distress. Objective: Vital Signs Temp Pulse Resp BP Pulse Ox 98.0 F 66 17 130/69 H 95 06/24/18 14:03 06/24/18 15:23 06/24/18 14:03 06/24/18 14:03 06/24/18 14:03 Oxygen Flow Rate (L/min) 2 Oxygen Delivery Method Room Air Weight: 173 lb 11.588 oz Body Mass Index (BMI) 27.1 Intake and Output for Last 24 Hours 06/22/18 06/23/18 06/24/18 23:59 23:59 23:59 Intake Total 240 / 240 Balance 240 / 240 General: Awake, Alert, Oriented x 3, Cooperative, No Acute Distress HEENT: Atraumatic, Normocephalic, PERRL, EOMI, Sclera Non Icteric Oral: Moist Mucosa Neck: Supple, Good ROM, No JVD Lungs: Clear to auscultation Cardiovascular: Regular Rhythm, Normal S1, Normal S2 Vascular: No Carotid Bruits Abdomen: Bowel Sounds Present, Soft, Non Tender Extremities: No Cyanosis, No Clubbing, No edema Neurological: No Focal Motor or Sensory Deficit Psych/Mental Status: Appropriate 06/24/18 07:00: WBC 5.7, RBC 4.76, Hgb 14.1, Hct 42.4, MCV 89.1, MCH 29.6, MCHC 33.3, RDW 13.7, RDW Differential 44.9 H, Plt Count 220, MPV 10.3, Immature Gran % (Auto) 0.000, Neut % (Auto) 57.3, Lymph % (Auto) 30.9, [place] % (Auto) 7.4, Eos % (Auto) 3.9, Baso % (Auto) 0.5, Absolute Neuts (auto) 3.3, Total Counted Not Reportable 06/24/18 07:00: Sodium 141, Potassium 3.7, Chloride 107, Carbon Dioxide 26.0, Anion Gap 8, BUN 14, Creatinine 0.99, Est GFR (MDRD) Af Amer 97, Est GFR (MDRD) Non-Af 80, BUN/Creatinine Ratio 14.1, Glucose 108 H, Calcium 8.8, Troponin I < 0.015 06/24/18 10:06: Troponin I < 0.015 06/24/18 13:16: Troponin I < 0.015 Rhythm: Sinus rhythm EKG: As noted above ECHO: As noted above Cardiac Cath: As noted above CT Surgery: As noted above CXR: Preliminary evaluation: Post open heart surgery changes: No acute cardiopulmonary disease process appreciated: Please see official report. Assessment/Plan 1. Chest pain The patient has had chest pain. The etiology is unclear. He appears to have more than one type of chest pain thus raising concerns of possible underlying musculoskeletal involvement versus the possibility of underlying coronary artery disease/graft vessel disease involvement. He has not been found to have other etiologies to explain his discomfort at this time. At the present time he will continue to be monitored. His ECG is being followed. He is already had a transthoracic echocardiogram. It would not be unreasonable, depending upon his clinical course, to consider at minimum evaluation with an exercise tolerance test/imaging study. Depending upon his clinical course and findings he may or may not need repeat diagnostic cardiac catheterization. 2. CAD status post CABG At the present time he will continue evaluation care as noted above. Meantime he should continue medical management. This can include agents such as aspirin, antiplatelets, nitrates, beta-blockers, lipid-lowering agents, anticoagulants, all as deemed appropriate. 3. Hyperlipidemia He will continue lipid-lowering therapy. 4. Hypertension He will continue antihypertensive therapy with adjustment as needed. Comment: The patient's case was discussed and reviewed with the patient, his spouse, Dr. Herrera the [facility] emergency department staff, and Dr. Engel of the [facility] hospitalist staff. This note was generated using a voice recognition system and there may be incorrect words, spelling or punctuation that were not noted when reviewing the office note prior to saving.
--- NOTE | 2018-06-24 16:08 | CON.PCM_ITS ---
Problem List (1) Chest pain Status: Acute (2) CAD (coronary artery disease) Status: Chronic Qualifiers: Coronary Disease-Associated Artery/Lesion type: [place] artery [place] vs. transplanted heart: [place] heart (3) S/P CABG x 2 Status: Chronic Comment: Pedicled ARZOLA graft to LAD, SVG to ramus branch(diagonal) per Dr. Enrique Baltazar @ [facility] (4) Pure hypercholesterolemia Status: Chronic (5) Essential (primary) hypertension Status: Chronic Reason for Consult Date of Consultation: 06/24/18 History of Present Illness: The patient is a 68 year old white male who has previously been evaluated by Lm Choe MD, who is referred for evaluation of chest discomfort superimposed upon a history of underlying CAD status post CABG. The patient has undergone previous noninvasive and invasive cardiovascular evaluation. It appears that in October 2017 the patient underwent transthoracic echocardiogram at [facility]. According to the report the left ventricle was thought to demonstrate mid to distal anterior wall and apex hypokinesis with an overall LVEF 55-60%. The patient underwent diagnostic cardiac catheterization. Per the report the left main coronary artery was patent, the LAD demonstrated mid occlusion, the LCx had luminal irregularities, the RCA had no stenosis reported, there was right to left collateral flow. The patient subsequently underwent CABG with a ARZOLA to the LAD and an SVG graft to the ramus/diagonal branch. The patient was eventually released home for outpatient cardiovascular follow-up. The patient notes that earlier this week, while in [place], he experienced a significant amount of emotional stress . He states since that time he has had chest discomfort although it worsened yesterday. He notes a somewhat centralized chest discomfort but also notes that his discomfort radiates somewhat to his left pectoral region. He does not recall radiation into the neck or jaw or upper extremities. There has been no associated dyspnea. He does not believe he has had ongoing nausea, emesis, or diaphoresis. He notes based on his worsening symptoms, with no other explanation, he presented to the emergency department for further evaluation. His initial noninvasive evaluation was negative with respect to cardiac enzymes. His ECG demonstrated sinus rhythm with T wave changes potentially compatible with anterolateral myocardial ischemia. He was placed in the PCU for further evaluation and care. Graph his subsequent cardiac enzyme levels have remained negative. A follow-up ECG demonstrated sinus rhythm with anterolateral T wave changes potentially compatible with myocardial ischemia and potentially somewhat more prominent than his previous ECG. He is also undergone evaluation with a transthoracic echocardiogram. The results are as noted below. Interpretation Summary Contrast injection was performed. Segmental dysfunction with preserved ejection fraction (see wall motion). The estimated ejection fraction is 55 %. Mild (1+) mitral valve insufficiency. Trivial tricuspid valve insufficiency. Mild focal aortic valve thickening. Trivial aortic valve insufficiency. No evidence for diastolic dysfunction. He states overall at the present time he feels better. He does note that when his transthoracic echocardiogram was being performed, that he had recurrent chest discomfort in the left pectoral region where the probe was placed. However the same time he states this was somewhat different from other discomforts he has had. Thus he states he has had more than one type of discomfort that has brought him to the hospital. [] Past Medical History Allergies/Adverse Reactions: Allergies No Known Allergies Allergy (Verified 06/24/18 07:01) Home Medications: Ambulatory Orders Medication Instructions Recorded aspirin 81 mg tablet,delayed 162 mg PO DAILY tab 12/27/17 release metoprolol tartrate 50 mg tablet 50 mg PO BID #180 tab 02/22/18 [place]-3 1 tab PO DAILY 06/24/18 Past Medical History (Chronic Problems): Chronic Problems (Last Updated 12/27/17 @ 09:56 by Anna Marie Lai) CAD (coronary artery disease) (Chronic) Pure hypercholesterolemia (Chronic) Essential (primary) hypertension (Chronic) History of left heart catheterization (Chronic 11/15/17) 02/13/[address] Choe @ [facility]: 100% occlusion of LAD, recommend CABG but pt needed immediate surgery for right peritrochanteric femur fracture. Per Dr. Santillan @ [facility]:100% occlusion mid LAD, 70% stenosis in proximal LAD, good collaterals from mid PDA to distal LAD. History of kidney stones (Chronic) Nonrheumatic mitral valve regurgitation (Chronic) 1+ per echo 11/15/17 @ [facility]; EF 55-60%, Atherosclerotic heart disease of [place] coronary artery without angina pectoris (Chronic 11/17/17) Pedicled ARZOLA graft to LAD, SVG to ramus branch(diagonal) per Dr. Enrique Baltazar @ [facility] S/P CABG x 2 (Chronic 11/17/17) Pedicled ARZOLA graft to LAD, SVG to ramus branch(diagonal) per Dr. Enrique Baltazar @ [facility] Fracture, intertrochanteric, right femur (Chronic) Surgical repair 02/05/[address] Wolf, [facility] Surgical History: coronary bypass surgery - October 2017, two-vessel - *Family History Maternal Family History: Family History (Last Updated 06/24/18 @ 11:14 by Moy Engel MD) Father CVA (cerebral vascular accident) Mother HEART DISE Other Cancer Heart disease History Items: No pertinent history Paternal Family History: Family History (Last Updated 06/24/18 @ 11:14 by Moy Engel MD) Father CVA (cerebral vascular accident) Mother HEART DISE Other Cancer Heart disease History Items: No pertinent history Lives: Spouse/ Significant Other Smoking Status: Former smoker Alcohol: None Drugs: None Review of Systems - Review of Systems General: Denies: Fever, Night Sweats, Fatigue Cardiovascular: Reports: Chest Discomfort. Denies: Shortness of Breath, Orthopnea, PND, Peripheral Edema, Palpitations, Lightheadedness, Dizziness, Near Syncope, Syncope Respiratory: Denies: Cough, Sputum Production, Hemoptysis Gastrointestinal: Denies: Hematemesis, Hematochezia, Melena Subjectve: This is a 68-year-old white male who appears to be resting comfortably at the moment in no acute distress. Objective: Vital Signs Temp Pulse Resp BP Pulse Ox 98.0 F 66 17 130/69 H 95 06/24/18 14:03 06/24/18 15:23 06/24/18 14:03 06/24/18 14:03 06/24/18 14:03 Oxygen Flow Rate (L/min) 2 Oxygen Delivery Method Room Air Weight: 173 lb 11.588 oz Body Mass Index (BMI) 27.1 Intake and Output for Last 24 Hours 06/22/18 06/23/18 06/24/18 23:59 23:59 23:59 Intake Total 240 / 240 Balance 240 / 240 General: Awake, Alert, Oriented x 3, Cooperative, No Acute Distress HEENT: Atraumatic, Normocephalic, PERRL, EOMI, Sclera Non Icteric Oral: Moist Mucosa Neck: Supple, Good ROM, No JVD Lungs: Clear to auscultation Cardiovascular: Regular Rhythm, Normal S1, Normal S2 Vascular: No Carotid Bruits Abdomen: Bowel Sounds Present, Soft, Non Tender Extremities: No Cyanosis, No Clubbing, No edema Neurological: No Focal Motor or Sensory Deficit Psych/Mental Status: Appropriate 06/24/18 07:00: WBC 5.7, RBC 4.76, Hgb 14.1, Hct 42.4, MCV 89.1, MCH 29.6, MCHC 33.3, RDW 13.7, RDW Differential 44.9 H, Plt Count 220, MPV 10.3, Immature Gran % (Auto) 0.000, Neut % (Auto) 57.3, Lymph % (Auto) 30.9, [place] % (Auto) 7.4, Eos % (Auto) 3.9, Baso % (Auto) 0.5, Absolute Neuts (auto) 3.3, Total Counted Not Reportable 06/24/18 07:00: Sodium 141, Potassium 3.7, Chloride 107, Carbon Dioxide 26.0, Anion Gap 8, BUN 14, Creatinine 0.99, Est GFR (MDRD) Af Amer 97, Est GFR (MDRD) Non-Af 80, BUN/Creatinine Ratio 14.1, Glucose 108 H, Calcium 8.8, Troponin I < 0.015 06/24/18 10:06: Troponin I < 0.015 06/24/18 13:16: Troponin I < 0.015 Rhythm: Sinus rhythm EKG: As noted above ECHO: As noted above Cardiac Cath: As noted above CT Surgery: As noted above CXR: Preliminary evaluation: Post open heart surgery changes: No acute cardiopulmonary disease process appreciated: Please see official report. Assessment/Plan 1. Chest pain The patient has had chest pain. The etiology is unclear. He appears to have more than one type of chest pain thus raising concerns of possible underlying musculoskeletal involvement versus the possibility of underlying coronary artery disease/graft vessel disease involvement. He has not been found to have other etiologies to explain his discomfort at this time. At the present time he will continue to be monitored. His ECG is being followed. He is already had a transthoracic echocardiogram. It would not be unreasonable, depending upon his clinical course, to consider at minimum evaluation with an exercise tolerance test/imaging study. Depending upon his clinical course and findings he may or may not need repeat diagnostic cardiac catheterization. 2. CAD status post CABG At the present time he will continue evaluation care as noted above. Meantime he should continue medical management. This can include agents such as aspirin, antiplatelets, nitrates, beta-blockers, lipid-lowering agents, anticoagulants, all as deemed appropriate. 3. Hyperlipidemia He will continue lipid-lowering therapy. 4. Hypertension He will continue antihypertensive therapy with adjustment as needed. Comment: The patient's case was discussed and reviewed with the patient, his spouse, Dr. Herrera the [facility] emergency department staff, and Dr. Engel of the [facility] hospitalist staff. This note was generated using a voice recognition system and there may be incorrect words, spelling or punctuation that were not noted when reviewing the office note prior to saving.
[2018-06-24] MEDS: Acetaminophen 325 MG Tablet 650 MG PO (19:59)
[2018-06-24] MEDS: Enoxaparin 80 MG/0.8 ML Syringe SC (22:16)
[2018-06-25] VITALS (14 sets, daily range): BP systolic 99–128; BP diastolic 49–69; PULSE 62–86; RESP 17; TEMP 36.4–37.1; O2SAT 95–98; BMI 27.1
[2018-06-25] MEDS: Acetaminophen 325 MG Tablet 650 MG PO ×2 (04:25→19:06)
--- NOTE | 2018-06-25 05:55 | EKG12_ITS ---
Test Reason : AM Blood Pressure : / mmHG Vent. Rate : 069 BPM Atrial Rate : 069 BPM P-R Int : 170 ms QRS Dur : 092 ms QT Int : 394 ms P-R-T Axes : 057 032 093 degrees QTc Int : 422 ms Normal sinus rhythm T wave abnormality, consider anterolateral ischemia Abnormal ECG Confirmed by TASHA RIBERA, YEIMI ([id number]), scientific editor BRENDAN GUPTA ([id number]) on 07/03/2018 11:27:25 AM Referred By: Confirmed By:YEIMI CORDOVA MD
[2018-06-25 06:29] LABS: Absolute Lymphocyte Count 1.48 X10^3/ul (0.83-4.51); Absolute Neutrophil Count 5.2 X10^3/uL (2.0-7.7); Basophil# 0.02 X10^3/uL; Basophil% 0.3 % (0-1); Eosinophil# 0.22 X10^3/uL; Eosinophils% 2.9 % (0-5); Hematocrit 39.9 % (40-54); Hemoglobin 12.9 g/dl (13.0-16.5); Lymphocyte # 1.48 X10^3/ul (4.0); Lymphocyte % 19.3 % (19-41); Mean Corp Hgb Conc 32.3 g/gl (32-36); Mean Corpuscular Volume 89.7 fL (80-94); Mean Platelet Vol. 10.4 fl (6.2-12.0); Monocyte# 0.69 X10^3/uL; Neutrophil # 5.24 X10^3/uL (2.7-7.7); Neutrophil % 68.4 % (47-70); Platelet Count 219 K/mm3 (150-450); RBC Distribution Width SD 46.3 fl (35.1-43.9); Red Blood Count 4.45 M/mm3 (4.6-6.2); White Blood Count 7.7 K/mm3 (4.4-11.0)
[2018-06-25 06:33] LABS: POSITIVE COUNT NO; POSITIVE DIFFERENTIAL NO; POSITIVE MORPHOLOGY NO
[2018-06-25 06:50] LABS: Cholesterol 209 mg/dL (200); High Density Lipoprotein 41 mg/dL; Thyroid Stim Hormone (TSH) 3.61 uIU/mL (0.358-3.74); Triglycerides 188 mg/dL; Very Low Density Lipoprotein 38 mg/dL (5-40)
[2018-06-25] MEDS: Isosorbide Mononitrate 30 MG Tablet PO (09:25)
[2018-06-25] MEDS: Aspirin E.C. 81 MG Tablet PO (09:25)
[2018-06-25] MEDS: Clopidogrel Bisulfate 75 MG Tablet PO (09:26)
[2018-06-25] MEDS: Metoprolol Tartrate 50 MG Tablet PO ×2 (11:25→21:13)
--- NOTE | 2018-06-25 12:13 | PCM.PN.CARD ---
Subjectve: The patient is awake and alert. He complains of intermittent left upper chest discomfort. This appears to wax and wane. He has had no other acute symptoms. Objective: Vital Signs Temp Pulse Resp BP Pulse Ox 98.6 F 85 17 110/62 95 06/25/18 08:00 06/25/18 11:25 06/25/18 08:00 06/25/18 08:00 06/25/18 08:00 Oxygen Flow Rate (L/min) 2 Oxygen Delivery Method Room Air Weight: 173 lb 11.588 oz Body Mass Index (BMI) 27.1 Intake and Output for Last 24 Hours 06/23/18 06/24/18 06/25/18 23:59 23:59 23:59 Intake Total 1040 / 1040 600 / 600 Balance 1040 / 1040 600 / 600 General: Awake, Alert, Oriented x 3, Cooperative, No Acute Distress HEENT: Atraumatic, Normocephalic, PERRL, EOMI, Sclera Non Icteric Oral: Moist Mucosa Neck: Supple, Good ROM, No JVD Lungs: Clear to auscultation Cardiovascular: Regular Rhythm, Normal S1, Normal S2 Vascular: No Carotid Bruits Abdomen: Bowel Sounds Present, Soft, Non Tender Extremities: No Cyanosis, No Clubbing, No edema Neurological: No Focal Motor or Sensory Deficit Psych/Mental Status: Appropriate 06/24/18 13:16: Troponin I < 0.015 06/25/18 06:04: WBC 7.7, RBC 4.45 L, Hgb 12.9 L, Hct 39.9 L, MCV 89.7, MCH 29.0, MCHC 32.3, RDW 14.0, RDW Differential 46.3 H, Plt Count 219, MPV 10.4, Immature Gran % (Auto) 0.100, Neut % (Auto) 68.4, Lymph % (Auto) 19.3, [place] % (Auto) 9.0, Eos % (Auto) 2.9, Baso % (Auto) 0.3, Absolute Neuts (auto) 5.2, Total Counted Not Reportable 06/25/18 06:04: Triglycerides 188, Cholesterol 209 H, LDL Cholesterol 130, VLDL Cholesterol 38, HDL Cholesterol 41 Rhythm: EKG: ECHO: Stress Test: Cardiac Cath: PCI: CT Surgery: Holter monitor: EPS: PPM: CXR: Chest CT Scan: Medical Necessity - Tobacco Use Smoking Status: Former smoker Assessment/Plan 1. Chest pain The patient has had chest pain. The etiology is unclear. He appears to have more than one type of chest pain thus raising concerns of possible underlying musculoskeletal involvement versus the possibility of underlying coronary artery disease/graft vessel disease involvement. He has not been found to have other etiologies to explain his discomfort at this time. At the present time he will continue to be monitored. His ECG is being followed. He is already had a transthoracic echocardiogram. He will be scheduled for an exercise tolerance test/imaging study in the a.m. barring and unforeseen change. Depending upon the findings he may or may not need repeat diagnostic cardiac catheterization. 2. CAD status post CABG At the present time he will continue evaluation care as noted above. In the meantime he should continue medical management. This can include agents such as aspirin, antiplatelets, nitrates, beta-blockers, lipid-lowering agents, anticoagulants, all as deemed appropriate. 3. Hyperlipidemia He will continue lipid-lowering therapy. 4. Hypertension He will continue antihypertensive therapy with adjustment as needed. Comment: The patient's case was discussed and reviewed with the patient and her Tor[place]. This note was generated using a voice recognition system and there may be incorrect words, spelling or punctuation that were not noted when reviewing the office note prior to saving.
--- NOTE | 2018-06-25 14:25 | PCM.PN.HOSP ---
Patient Problems: Active and Suspected Problems (Last Updated 12/29/17 @ 11:31 by Betito Hines NP-C) Central chest pain (Acute) Chest pain (Acute) Subjective: Patient did not had any further chest pain or shortness of breath. Blood pressure is controlled. Heart rate normal. Vitals/I&O's: Vital Signs Temp Pulse Resp BP Pulse Ox 98.0 F 66 17 99/56 L 98 06/25/18 14:00 06/25/18 14:00 06/25/18 14:00 06/25/18 14:00 06/25/18 14:00 Oxygen Flow Rate (L/min) 2 Oxygen Delivery Method Room Air Weight: 173 lb 11.588 oz Body Mass Index (BMI) 27.1 Intake and Output for Last 24 Hours 06/23/18 06/24/18 06/25/18 23:59 23:59 23:59 Intake Total 1040 / 1040 600 / 600 Balance 1040 / 1040 600 / 600 General: Alert, Oriented x3, Cooperative HEENT: Atraumatic, PERRLA, EOMI, Normocephalic Neck: Supple, No JVD, Negative Carotid Bruits Lungs: Clear to auscultation, Normal air movement, No rhonchi, No wheeze, No rales Cardiovascular: Regular rate, Regular Rhythm, Normal S1, Normal S2, No murmurs Abdomen: Bowel Sounds Present, Soft, Non Tender, Non-Distended Extremities: No edema, Capillary Refill Less than 3 Seconds Skin: No rashes, No breakdown Musculoskeletal: No Tenderness to Palpation of Joints or Extremities, Arthritic Changes Neurological: Cranial nerves II-XII grossly intact Psych/Mental Status: Normal Affect, Appropriate Laboratory Results 06/25/18 06:04: WBC 7.7, RBC 4.45 L, Hgb 12.9 L, Hct 39.9 L, MCV 89.7, MCH 29.0, MCHC 32.3, RDW 14.0, RDW Differential 46.3 H, Plt Count 219, MPV 10.4, Immature Gran % (Auto) 0.100, Neut % (Auto) 68.4, Lymph % (Auto) 19.3, [place] % (Auto) 9.0, Eos % (Auto) 2.9, Baso % (Auto) 0.3, Absolute Neuts (auto) 5.2, Absolute Lymphs (auto) 1.48, Total Counted Not Reportable 06/25/18 06:04: Triglycerides 188, Cholesterol 209 H, LDL Cholesterol 130, VLDL Cholesterol 38, HDL Cholesterol 41, TSH 3.61 Current Medications Acetaminophen (Tylenol) 650 mg PO Q4H PRN PRN PRN Reason: HEADACHE/FEVER (T>100F) Last Admin: 06/25/18 04:25 Dose: 650 mg Aspirin (Ecotrin) 81 mg PO DAILY@0800 [facility] Last Admin: 06/25/18 09:25 Dose: 81 mg Atorvastatin Calcium (Lipitor) 40 mg PO QHS [facility] Last Admin: 06/24/18 22:16 Dose: Not Given Clopidogrel Bisulfate (Plavix) 75 mg PO DAILY [facility] Last Admin: 06/25/18 09:26 Dose: 75 mg Enoxaparin Sodium (Lovenox) 80 mg 1 mg/kg (70 mg) SC Q12 [facility] Last Admin: 06/25/18 09:27 Dose: Not Given Isosorbide Mononitrate (Imdur) 30 mg PO DAILY [facility] Last Admin: 06/25/18 09:25 Dose: 30 mg Metoprolol Tartrate (Lopressor (Beta Chitra)) 50 mg PO BID [facility] Last Admin: 06/25/18 11:25 Dose: 50 mg Nitroglycerin (Nitrostat) 0.4 mg SUBLINGUAL Q5M PRN PRN Reason: CHEST PAIN Sodium Chloride () 5 - 15 ml IV UD PRN PRN Reason: SALINE FLUSH Medical Necessity - Tobacco Use Smoking Status: Former smoker Assessment/Plan All Active Problems (Last Updated 12/29/17 @ 11:31 by Betito Hines NP-C) Central chest pain (Acute) Chest pain (Acute) Abnormal EKG (Acute 11/15/17) Unstable angina (Acute) There is a 68-year-old gentleman with history of coronary artery status post two-vessel CABG in [facility] in October 2017 came to ED with chest pain continuous since at 2 AM while sleeping on 06/22 although it fluctuates in severity, gets worse on mild exertion soon with shortness of breath. EKG shows normal sinus rhythm with T wave inversion in 1 and aVL and nonspecific [address]-T changes similar to EKG of November 2017. 2 troponins are negative. Troponins are negative. Chest x-ray reported no acute cardiopulmonary disease. He had unstable angina for which cardiac cath done in January 2017 while He was admitted for right intertrochanteric fracture for which he was transferred to [facility] for high risk hip surgery. At that time, coronary angiogram showed EF 45 to 50% with anterior hypokinesis with 100% chronic, proximal LAD occlusion with collateral flow from left to left. 1. Atypical chest pain concerning for unstable angina: Patient is admitted in PCU. Serial troponin enzymes are negative. Plan for myocardial perfusion nuclear stress test tomorrow morning. Started on aspirin, loading dose of Plavix, Lovenox 1 mg/kg body weight, metoprolol, Nitrostat sublingual. Patient blood pressure is controlled, 118/69 therefore does not need SYEDA/ARB and neither patient is at home. Web Press Operator Apprentice Dr. Vásquez has been consulted. Fasting lipid profile: Total cholesterol 209, LDL 130, HDL 41. TSH 3.6 2. Coronary artery disease status post two-vessel CABG in October 2017: Home medications continued as mentioned above. 3. Hypertension: Blood pressure is controlled. Patient is not on antihypertensive medications at home except metoprolol. 4. Chronic right intertrochanteric hip fracture status post ORIF in January 2017 IN [facility]: Stable. 5. DVT prophylaxis: On therapeutic dose of Lovenox Plan: Nuclear stress test tomorrow morning Clinical Impression(s) from Imaging Studies Chest X-Ray 06/24/18 07:06 IMPRESSION: No radiographic evidence of acute cardiopulmonary disease. Laboratory Results 06/25/18 06:04: WBC 7.7, RBC 4.45 L, Hgb 12.9 L, Hct 39.9 L, MCV 89.7, MCH 29.0, MCHC 32.3, RDW 14.0, RDW Differential 46.3 H, Plt Count 219, MPV 10.4, Immature Gran % (Auto) 0.100, Neut % (Auto) 68.4, Lymph % (Auto) 19.3, Randall % (Auto) 9.0, Eos % (Auto) 2.9, Baso % (Auto) 0.3, Absolute Neuts (auto) 5.2, Absolute Lymphs (auto) 1.48, Total Counted Not Reportable 06/25/18 06:04: Triglycerides 188, Cholesterol 209 H, LDL Cholesterol 130, VLDL Cholesterol 38, HDL Cholesterol 41, TSH 3.61 Code Visit Inpatient E&M: 92338 Subs Hosp L2
--- NOTE | 2018-06-25 14:28 | PN_ITS ---
Patient Problems: Active and Suspected Problems (Last Updated 12/29/17 @ 11:31 by Betito Hines NP- C) Central chest pain (Acute) Chest pain (Acute) Subjective: Patient did not had any further chest pain or shortness of breath. Blood pressure is controlled. Heart rate normal. Vitals/I&O's: Vital Signs Temp Pulse Resp BP Pulse Ox 98.0 F 66 17 99/56 L 98 06/25/18 14:00 06/25/18 14:00 06/25/18 14:00 06/25/18 14:00 06/25/18 14:00 Oxygen Flow Rate (L/min) 2 Oxygen Delivery Method Room Air Weight: 173 lb 11.588 oz Body Mass Index (BMI) 27.1 Intake and Output for Last 24 Hours 06/23/18 06/24/18 06/25/18 23:59 23:59 23:59 Intake Total 1040 / 1040 600 / 600 Balance 1040 / 1040 600 / 600 General: Alert, Oriented x3, Cooperative HEENT: Atraumatic, PERRLA, EOMI, Normocephalic Neck: Supple, No JVD, Negative Carotid Bruits Lungs: Clear to auscultation, Normal air movement, No rhonchi, No wheeze, No rales Cardiovascular: Regular rate, Regular Rhythm, Normal S1, Normal S2, No murmurs Abdomen: Bowel Sounds Present, Soft, Non Tender, Non-Distended Extremities: No edema, Capillary Refill Less than 3 Seconds Skin: No rashes, No breakdown Musculoskeletal: No Tenderness to Palpation of Joints or Extremities, Arthritic Changes Neurological: Cranial nerves II-XII grossly intact Psych/Mental Status: Normal Affect, Appropriate Laboratory Results 06/25/18 06:04: WBC 7.7, RBC 4.45 L, Hgb 12.9 L, Hct 39.9 L, MCV 89.7, MCH 29.0, MCHC 32.3, RDW 14.0, RDW Differential 46.3 H, Plt Count 219, MPV 10.4, Immature Gran % (Auto) 0.100, Neut % (Auto) 68.4, Lymph % (Auto) 19.3, [place] % (Auto) 9.0, Eos % (Auto) 2.9, Baso % (Auto) 0.3, Absolute Neuts (auto) 5.2, Absolute Lymphs (auto) 1.48, Total Counted Not Reportable 06/25/18 06:04: Triglycerides 188, Cholesterol 209 H, LDL Cholesterol 130, VLDL Cholesterol 38, HDL Cholesterol 41, TSH 3.61 Current Medications Acetaminophen (Tylenol) 650 mg PO Q4H PRN PRN PRN Reason: HEADACHE/FEVER (T>100F) Last Admin: 06/25/18 04:25 Dose: 650 mg Aspirin (Ecotrin) 81 mg PO DAILY@0800 [facility] Last Admin: 06/25/18 09:25 Dose: 81 mg Atorvastatin Calcium (Lipitor) 40 mg PO QHS [facility] Last Admin: 06/24/18 22:16 Dose: Not Given Clopidogrel Bisulfate (Plavix) 75 mg PO DAILY [facility] Last Admin: 06/25/18 09:26 Dose: 75 mg Enoxaparin Sodium (Lovenox) 80 mg 1 mg/kg (70 mg) SC Q12 [facility] Last Admin: 06/25/18 09:27 Dose: Not Given Isosorbide Mononitrate (Imdur) 30 mg PO DAILY [facility] Last Admin: 06/25/18 09:25 Dose: 30 mg Metoprolol Tartrate (Lopressor (Beta Chitra)) 50 mg PO BID [facility] Last Admin: 06/25/18 11:25 Dose: 50 mg Nitroglycerin (Nitrostat) 0.4 mg SUBLINGUAL Q5M PRN PRN Reason: CHEST PAIN Sodium Chloride () 5 - 15 ml IV UD PRN PRN Reason: SALINE FLUSH Medical Necessity - Tobacco Use Smoking Status: Former smoker Assessment/Plan All Active Problems (Last Updated 12/29/17 @ 11:31 by Betito Hines NP-C) Central chest pain (Acute) Chest pain (Acute) Abnormal EKG (Acute 11/15/17) Unstable angina (Acute) There is a 68-year-old gentleman with history of coronary artery status post two-vessel CABG in [facility] in October 2017 came to ED with chest pain continuous since at 2 AM while sleeping on 06/22 although it fluctuates in severity, gets worse on mild exertion soon with shortness of breath. EKG shows normal sinus rhythm with T wave inversion in 1 and aVL and nonspecific ST-T changes similar to EKG of November 2017. 2 troponins are negative. Troponins are negative. Chest x-ray reported no acute cardiopulmonary disease. He had unstable angina for which cardiac cath done in January 2017 while He was admitted for right intertrochanteric fracture for which he was transferred to [facility] for high risk hip surgery. At that time, coronary angiogram showed EF 45 to 50% with anterior hypokinesis with 100% chronic, proximal LAD occlusion with collateral flow from left to left. 1. Atypical chest pain concerning for unstable angina: Patient is admitted in PCU. Serial troponin enzymes are negative. Plan for myocardial perfusion nuclear stress test tomorrow morning. Started on aspirin, loading dose of Plavix, Lovenox 1 mg/kg body weight, metoprolol, Nitrostat sublingual. Patient blood pressure is controlled, 118/69 therefore does not need SYEDA/ARB and neither patient is at home. Resident Care Assistant Dr. Vásquez has been consulted. Fasting lipid profile: Total cholesterol 209, LDL 130, HDL 41. TSH 3.6 2. Coronary artery disease status post two-vessel CABG in October 2017: Home medications continued as mentioned above. 3. Hypertension: Blood pressure is controlled. Patient is not on antihypertensive medications at home except metoprolol. 4. Chronic right intertrochanteric hip fracture status post ORIF in January 2017 IN [facility]: Stable. 5. DVT prophylaxis: On therapeutic dose of Lovenox Plan: Nuclear stress test tomorrow morning Clinical Impression(s) from Imaging Studies Chest X-Ray 06/24/18 07:06 IMPRESSION: No radiographic evidence of acute cardiopulmonary disease. Laboratory Results 06/25/18 06:04: WBC 7.7, RBC 4.45 L, Hgb 12.9 L, Hct 39.9 L, MCV 89.7, MCH 29.0, MCHC 32.3, RDW 14.0, RDW Differential 46.3 H, Plt Count 219, MPV 10.4, Immature Gran % (Auto) 0.100, Neut % (Auto) 68.4, Lymph % (Auto) 19.3, [place] % (Auto) 9.0, Eos % (Auto) 2.9, Baso % (Auto) 0.3, Absolute Neuts (auto) 5.2, Absolute Lymphs (auto) 1.48, Total Counted Not Reportable 06/25/18 06:04: Triglycerides 188, Cholesterol 209 H, LDL Cholesterol 130, VLDL Cholesterol 38, HDL Cholesterol 41, TSH 3.61 Code Visit Inpatient E&M: 98433 Subs Hosp L2
--- NOTE | 2018-06-25 17:06 | CT_ITS ---
We are attempting to reach Moy Engel to discuss findings. An addendum with communication details will be sent when the communication is complete. STUDY: CT BRAIN WITHOUT CONTRAST REASON FOR EXAM: Male, 68 years old. CVA RADIATION DOSAGE (If Supplied By Facility): CTDIvol = ( 44.99 ) mGy, DLP = ( 812.98 ) mGycm TECHNIQUE: Transaxial CT imaging of the brain was performed without administration of intravenous contrast material. Individualized dose optimization techniques were used for this CT. COMPARISON: No relevant priors. FINDINGS: Normal soft tissue structures. Normal calvarium. Normal size ventricles and extra-axial spaces for the patient's age. Normal white matter tracts of the cerebral hemispheres. Normal basal ganglia and thalami. Normal brainstem. Normal cerebellum. There is no intracranial hemorrhage. There are no findings of an acute ischemic infarction. Normal visualized paranasal sinuses. CT/Brain/Head without Contrast IMPRESSION: Normal unenhanced CT scan of the brain. Electronically Signed: Delbert Cabral MD at 17:29 EDT , Service support ,
--- NOTE | 2018-06-25 17:10 | CM.ED ---
Social Work Note RESPONDED TO STROKE ALERT. PT'S SPOUSE PRESENT IN ROOM. PT TAKEN DOWN TO CT FOR EVALUATION. INTRODUCED SELF AND ROLE AT [facility] TO PT'S . OFFERED SUPPORT AND SPOUSE DECLINES ANY ASSISTANCE AND DENIES NEEDS AT THIS TIME. MADE AWARE THAT SW AND STAFF ARE AVAILABLE IF QUESTIONS/CONCERNS ARISE. Katheryn Mckeon, COMMERCIAL BANKER, [place]
--- NOTE | 2018-06-25 17:24 | PCM.PN.BLA ---
Progress Note responded to an WIND TURBINE ENGINEER call. RN noticed that the pt had a facial droop on the right and when he looked in the mirror he thought it felt funny and looked funny. He is alert and oriented X 3 and appears to be in no acute distress. He has a very mild droop to the left corner of the mouth but when he smiles there is good facial symmetry. He has no other focal neurologic deficits. no drift and no neglect. 5/5 strength throughout. no dysmetria NIH 0-[address] of the brain without contrast. Telemetry with NSR and no AF. Initiate neurochecks for the next 24 hours.....if the defect persists consider a MRI in the AM. He is already on ASA and Plavix.
--- NOTE | 2018-06-25 17:31 | PN_ITS ---
Progress Note responded to an OB GYN call. RN noticed that the pt had a facial droop on the right and when he looked in the mirror he thought it felt funny and looked funny. He is alert and oriented X 3 and appears to be in no acute distress. He has a very mild droop to the left corner of the mouth but when he smiles there is good facial symmetry. He has no other focal neurologic deficits. no drift and no neglect. 5/5 strength throughout. no dysmetria NIH 0-[address] of the brain without contrast. Telemetry with NSR and no AF. Initiate neurochecks for the next 24 hours.....if the defect persists consider a MRI in the AM. He is already on ASA and Plavix.
[2018-06-25 18:20] LABS: Bedside Glucose 93 mg/dL (70-110)
[2018-06-25] MEDS: 0.9% NaCl Peripheral Flush Adult/Peds IV (18:28)
[2018-06-25] MEDS: 0.9% Normal Saline 1,000 ML 100 ML IV (18:28)
--- NOTE | 2018-06-25 18:48 | NURSING ---
Patient reports that earlier today around 12pm he was having a headache and his gave him Tylenol from her purse. Explained to patient importance of not doing this and only taking medication given by RN for patient safety. Patient agreed to same.
--- NOTE | 2018-06-25 19:01 | CM.ED ---
Social Work Note RESPONDED TO STROKE ALERT. PT'S SPOUSE PRESENT IN ROOM. PT TAKEN DOWN TO CT FOR EVALUATION. INTRODUCED SELF AND ROLE AT [facility] TO PT'S . OFFERED SUPPORT AND SPOUSE DECLINES ANY ASSISTANCE AND DENIES NEEDS AT THIS TIME. MADE AWARE THAT SW AND STAFF ARE AVAILABLE IF QUESTIONS/CONCERNS ARISE. Katheryn Mckeon, WORKPLACE TRAINER AND ASSESSOR, [place]
--- NOTE | 2018-06-25 21:04 | NURSING ---
This nurse came in to check patients vital signs, he was in bathroom cleaning up was unable to do vital signs until now.
[2018-06-26] VITALS (16 sets, daily range): BP systolic 118–157; BP diastolic 56–86; PULSE 63–88; RESP 16–17; TEMP 36.6–36.9; O2SAT 95–98; BMI 27.1
[2018-06-26] MEDS: Acetaminophen 325 MG Tablet 650 MG PO (02:23)
[2018-06-26] MEDS: 0.9% Normal Saline 1,000 ML 100 ML IV ×2 (04:31→04:43)
--- NOTE | 2018-06-26 05:55 | MRI_ITS ---
STUDY: MRA NECK WITHOUT CONTRAST REASON FOR EXAM: Male, 68 years old. facial droop. TECHNIQUE: Source images were obtained, MIPs were performed. The study was performed unenhanced. COMPARISON: None. FINDINGS: RIGHT CAROTID ARTERIES: Antegrade flow within the right common carotid artery (CCA). There appears moderate atherosclerotic plaque formation with moderate narrowing of the carotid bulb. There appears moderate atherosclerotic plaque formation of the origin of the right internal carotid artery with an estimated stenosis of 50-69% stenosis. Antegrade flow within the visualized cervical portion of the right internal carotid artery. LEFT CAROTID ARTERIES: Antegrade flow within the left common carotid artery (CCA). There appears moderate atherosclerotic plaque formation with moderate narrowing of the carotid bulb. There appears moderate atherosclerotic plaque formation of the origin of the left internal carotid artery with an estimated stenosis of 50-69% stenosis. Antegrade flow within the visualized cervical portion of the left internal carotid artery. VERTEBRAL ARTERIES: There is antegrade flow within the bilateral vertebral arteries with a small right vertebral artery, and a dominant left vertebral artery. MRI/MRA Neck without Contrast IMPRESSION: 50-69% stenosis of the bilateral ICA. Further evaluation with sonography is recommended. Electronically Signed: Paco Membreno MD at 12:57 EDT Tel , Service support ,
--- NOTE | 2018-06-26 05:55 | MRI_ITS ---
STUDY: MRI BRAIN WITHOUT CONTRAST REASON FOR EXAM: Male, 68 years old. facial droop TECHNIQUE: Standardized multiplanar fat and water weighted pulse sequences were obtained. COMPARISON: Jun 25 2018 FINDINGS: Normal size of the ventricles and extra-axial spaces for the patient's age. Normal white matter tracts of the supratentorial brain. Normal bilateral basal ganglia. Normal thalami. There is no extra-axial fluid accumulation. Normal flow voids within the major intracranial circulation suggesting patency by spin echo criteria. Normal sella turcica, pituitary gland, infundibular stalk, optic chiasm and hypothalamus. Normal tectal plate and pineal gland. Normal midbrain, butch and medulla. Normal cerebellum. Normal basal cisterns. Normal bilateral temporal bones. Normal bilateral internal auditory canals. No demonstrated orbital abnormality, within the constraints of a routine brain study. Normal visualized paranasal sinuses. Normal calvarium and skull base. Normal visualized soft tissue structures. Normal visualized upper cervical spine. MRI/Brain without Contrast IMPRESSION: Normal unenhanced MRI of the brain. Electronically Signed: Paco Membreno MD at 13:37 EDT Tel , Service support ,
--- NOTE | 2018-06-26 05:55 | MRI_ITS ---
STUDY: MRA OF THE HEAD WITHOUT CONTRAST REASON FOR EXAM: Male, 68 years old. facial droop. TECHNIQUE: 3-D [id number] (TOF) imaging was performed with MIPs. The study was performed unenhanced. COMPARISON: None. FINDINGS: Normal bilateral petrous carotid arteries. Normal right cavernous carotid artery with a normal supraclinoid bifurcation. Normal left cavernous carotid artery with a normal supraclinoid bifurcation. Normal right A1 segments of the anterior cerebral artery. Normal left A1 segments of the anterior cerebral artery. Normal intact anterior communicating artery (ACOM). Normal bilateral A2 segments of the anterior cerebral arteries. Normal right M1 and M2 segments of the middle cerebral arteries, with a normal M1 bifurcation. Normal left M1 and M2 segments of the middle cerebral arteries, with a normal M1 bifurcation. There is a persistent origin of the right posterior cerebral artery with absence of the P1 segment of the right posterior cerebral artery. There is a persistent origin of the left posterior cerebral artery with absence of the P1 segment of the left posterior cerebral artery. Normal basilar artery with a normal basilar bifurcation. The visualized bilateral superior cerebellar (SCA) arteries are normal. Normal bilateral posterior cerebral arteries. There is no demonstrated aneurysm of the [place]. There is no major vessel occlusion or hemodynamically significant stenosis. There is no demonstrated abnormality of the visualized brain. MRI/MRA Head ONLY without Contrast IMPRESSION: Normal MRA of the head Electronically Signed: Paco Membreno MD at 13:37 EDT Tel , Service support ,
[2018-06-26 06:30] LABS: Absolute Lymphocyte Count 1.52 X10^3/ul (0.83-4.51); Absolute Neutrophil Count 3.8 X10^3/uL (2.0-7.7); Basophil# 0.03 X10^3/uL; Basophil% 0.5 % (0-1); Eosinophil# 0.21 X10^3/uL; Eosinophils% 3.3 % (0-5); Hematocrit 37.5 % (40-54); Hemoglobin 12.1 g/dl (13.0-16.5); Lymphocyte # 1.52 X10^3/ul (4.0); Lymphocyte % 24.1 % (19-41); Mean Corp Hgb Conc 32.3 g/gl (32-36); Mean Corpuscular Volume 89.9 fL (80-94); Mean Platelet Vol. 10.1 fl (6.2-12.0); Monocyte# 0.79 X10^3/uL; Monocyte% 12.5 % (0-10); Neutrophil # 3.75 X10^3/uL (2.7-7.7); Neutrophil % 59.6 % (47-70); Platelet Count 202 K/mm3 (150-450); RBC Distribution Width CV 13.9 % (11.6-14.6); RBC Distribution Width SD 45.9 fl (35.1-43.9); Red Blood Count 4.17 M/mm3 (4.6-6.2); White Blood Count 6.3 K/mm3 (4.4-11.0)
[2018-06-26 06:40] LABS: POSITIVE COUNT NO; POSITIVE DIFFERENTIAL NO; POSITIVE MORPHOLOGY NO
--- NOTE | 2018-06-26 08:51 | PCM.PN.CARD ---
Subjectve: The patient states he is doing well at this time. He still has some tenderness to palpation over the left chest area. Treviño he believes he is back to his usual state of health. Yesterday he had an episode where he experienced a headache, transient left facial drooping, and transient hypotension. He did have a follow-up ECG at the time that demonstrated continued sinus rhythm with his nonspecific ST and T wave changes with no significant change compared to previous evaluation. He was evaluated by the stroke team. There was concerns that he may have experienced a TIA. He underwent a head CT scan with no acute COUNTER POCKET TRIMMER event. He is pending further neurology evaluation and MR studies. His exercise tolerance test/imaging study has been placed on hold. Objective: Vital Signs Temp Pulse Resp BP Pulse Ox 98.4 F 81 17 131/56 H 98 06/26/18 04:30 06/26/18 07:00 06/26/18 04:30 06/26/18 04:30 06/26/18 04:30 Oxygen Flow Rate (L/min) 2 Oxygen Delivery Method Room Air Weight: 173 lb 11.588 oz Body Mass Index (BMI) 27.1 Finger Stick Blood Glucose 93 Intake and Output for Last 24 Hours 06/24/18 06/25/18 06/26/18 23:59 23:59 23:59 Intake Total 1040 / 1040 1676 / 1676 398 / 398 Output Total 2 / 2 Balance 1040 / 1040 1674 / 1674 398 / 398 General: Awake, Alert, Oriented x 3, Cooperative, No Acute Distress HEENT: Atraumatic, Normocephalic, PERRL, EOMI Oral: Moist Mucosa Neck: Supple, Good ROM, No JVD Chest Wall: - - Tenderness to palpation over the left upper chest area Lungs: Clear to auscultation Cardiovascular: Regular Rhythm, Normal S1, Normal S2 Vascular: No Carotid Bruits Abdomen: Bowel Sounds Present, Soft, Non Tender Extremities: No edema Psych/Mental Status: Appropriate 06/26/18 05:46: WBC 6.3, RBC 4.17 L, Hgb 12.1 L, Hct 37.5 L, MCV 89.9, MCH 29.0, MCHC 32.3, RDW 13.9, RDW Differential 45.9 H, Plt Count 202, MPV 10.1, Immature Gran % (Auto) 0.000, Neut % (Auto) 59.6, Lymph % (Auto) 24.1, [place] % (Auto) 12.5 H, Eos % (Auto) 3.3, Baso % (Auto) 0.5, Absolute Neuts (auto) 3.8, Total Counted Not Reportable Rhythm: Sinus rhythm Medical Necessity - Tobacco Use Smoking Status: Former smoker Assessment/Plan 1. Chest pain The patient has had chest pain. The etiology is unclear. He appears to have more than one type of chest pain thus raising concerns of possible underlying musculoskeletal involvement versus the possibility of underlying coronary artery disease/graft vessel disease involvement. He has not been found to have other etiologies to explain his discomfort at this time. At the present time he will continue to be monitored. His ECG is being followed. He is already had a transthoracic echocardiogram. His exercise tolerance test is on hold secondary to concerns that he may have experienced a TIA yesterday afternoon. He will continue cardiovascular medical management in the meantime with adjustment as deemed appropriate. He will be evaluated by neurology. Depending upon his neurologic evaluation consideration be given to proceed versus not proceed with additional cardiovascular evaluation at this time. 2. CAD status post CABG At the present time he will continue evaluation care as noted above. In the meantime he should continue medical management. This can include agents such as aspirin, antiplatelets, nitrates, beta-blockers, lipid-lowering agents, anticoagulants, all as deemed appropriate. 3. Hyperlipidemia He will continue lipid-lowering therapy. 4. Hypertension He will continue antihypertensive therapy with adjustment as needed. Comment: The patient's case was discussed and reviewed with the patient and previously with Dr. Engel and Dr. Doll. This note was generated using a voice recognition system and there may be incorrect words, spelling or punctuation that were not noted when reviewing the office note prior to saving.
[2018-06-26] MEDS: Aspirin E.C. 81 MG Tablet PO (10:20)
[2018-06-26] MEDS: Enoxaparin 80 MG/0.8 ML Syringe SC ×2 (10:20→21:16)
[2018-06-26] MEDS: Clopidogrel Bisulfate 75 MG Tablet PO (10:20)
[2018-06-26] MEDS: Metoprolol Tartrate 50 MG Tablet PO ×2 (10:21→21:16)
--- NOTE | 2018-06-26 12:42 | CASEMGMT ---
RN CM Assessment Presentation: Atypical chest pain, ?unstable angina. Stroke alert called. MRI's pending. Intro role of CM and purpose of RN CM assessment to pt, , son in room. Pt is awake, alert and able to participate in assessment. Demographics, PCP and Pharmacy verified. PCP: Dr. Patel Specialists: Cardiology Preferred Pharmacy: [facility] Pharmacy, [facility] Pt states they will deliver. Insurance: [employer], pt states Maikol Rodrigueztori has been in to speak with him already. Prescription Benefit: self pay LNOK: Juanita Owens, Living Arrangements: Lives in 3 story home with 3 steps into home. Pt states prior to admission he was independent with ADL's and activities around home, no difficulty with stairs. , family is able to assist with any needs @ home. Transportation: uses paid transportation. Pt requesting [facility] transportation for discharge to home. RN CM explained if they are available this can be set up, but it depends on current day availability. DME: CPAP, does not know which company this is from, but can look up if needed. HHC: none Patient DC goals: Home on discharge DC PLAN: anticipate home on dc. PT/OT evaluations pending. Dulce TRAVIS RN ACM
--- NOTE | 2018-06-26 13:09 | PCM.PN.HOSP ---
Patient Problems: Active and Suspected Problems (Last Updated 12/29/17 @ 11:31 by Betito Hines NP-C) Central chest pain (Acute) Chest pain (Acute) Subjective: Patient seen and examined. He was admitted with complaint of chest pain was being managed for unstable angina and was due to have stressed this morning. I advised that he was noted to have a left facial droop and a CT of the head and was negative for any infarct. MRI done this morning report pending. Facial droop is likely resolved. He has no complaints and feels well. His chest pain moved to his left shoulder. Review of systems otherwise negative. Labs and vitals reviewed. Vitals/I&O's: Vital Signs Temp Pulse Resp BP Pulse Ox 98.5 F 72 16 118/75 96 06/26/18 12:00 06/26/18 12:00 06/26/18 12:00 06/26/18 12:00 06/26/18 12:00 Oxygen Flow Rate (L/min) 2 Oxygen Delivery Method Room Air Weight: 173 lb 11.588 oz Body Mass Index (BMI) 27.1 Finger Stick Blood Glucose 93 Intake and Output for Last 24 Hours 06/24/18 06/25/18 06/26/18 23:59 23:59 23:59 Intake Total 1040 / 1040 1676 / 1676 1219 / 1219 Output Total 2 / 2 Balance 1040 / 1040 1674 / 1674 1219 / 1219 General: Alert, Oriented x3, Cooperative, No apparent distress HEENT: Atraumatic, PERRLA, EOMI, Normocephalic Oral: Moist Mucosa Neck: Supple, No JVD, Negative Carotid Bruits Lungs: Clear to auscultation, Normal air movement, No rhonchi, No wheeze, No rales Cardiovascular: Regular rate, Regular Rhythm, Normal S1, Normal S2, No murmurs Abdomen: Bowel Sounds Present, Soft, Non Tender, Non-Distended, No Hepato-splenomegaly Extremities: No clubbing, No cyanosis, No edema, Capillary Refill Less than 3 Seconds Skin: No rashes, No breakdown Musculoskeletal: No Tenderness to Palpation of Joints or Extremities Lymphatic: No Cervical, Supraclavicular, or Inguinal Adenopathy Neurological: Cranial nerves II-XII grossly intact Psych/Mental Status: Normal Affect, Appropriate, Alert and oriented to time, place, person, mood and affect Laboratory Results 06/25/18 17:06: POC Glucose 93 06/26/18 05:46: WBC 6.3, RBC 4.17 L, Hgb 12.1 L, Hct 37.5 L, MCV 89.9, MCH 29.0, MCHC 32.3, RDW 13.9, RDW Differential 45.9 H, Plt Count 202, MPV 10.1, Immature Gran % (Auto) 0.000, Neut % (Auto) 59.6, Lymph % (Auto) 24.1, [place] % (Auto) 12.5 H, Eos % (Auto) 3.3, Baso % (Auto) 0.5, Absolute Neuts (auto) 3.8, Absolute Lymphs (auto) 1.52, Total Counted Not Reportable Diagnostic Data Chest X-Ray 06/24/18 07:06 IMPRESSION: No radiographic evidence of acute cardiopulmonary disease. Electronically Signed: Tamera Owens MD at 9:01 EDT , Service support , Brain CT 06/25/18 17:06 IMPRESSION: Normal unenhanced CT scan of the brain. Electronically Signed: Delbert Cabral MD at 17:29 EDT , Service support , ADDENDUM: 06/25/18 1743 IMPRESSION: Normal unenhanced CT scan of the brain. N.B. : The above information has been verbally conveyed by Delbert Cabral MD to Dr. Sharmila MD, on 06/25/2018 17:36:59 (ET). Electronically Signed: Delbert Cabral MD at 17:29 EDT , Service support , Neck MRA 06/26/18 05:55 IMPRESSION: 50-69% stenosis of the bilateral ICA. Further evaluation with sonography is recommended. Electronically Signed: Paco Membreno MD at 12:57 EDT Tel , Service support , Current Medications Acetaminophen (Tylenol) 650 mg PO Q4H PRN PRN PRN Reason: HEADACHE/FEVER (T>100F) Last Admin: 06/26/18 02:23 Dose: 650 mg Aspirin (Ecotrin) 81 mg PO DAILY@0800 [facility] Last Admin: 06/26/18 10:20 Dose: 81 mg Atorvastatin Calcium (Lipitor) 40 mg PO QHS [facility] Last Admin: 06/25/18 21:11 Dose: Not Given Clopidogrel Bisulfate (Plavix) 75 mg PO DAILY [facility] Last Admin: 06/26/18 10:20 Dose: 75 mg Enoxaparin Sodium (Lovenox) 80 mg 1 mg/kg (70 mg) SC Q12 [facility] Last Admin: 06/26/18 10:20 Dose: 80 mg Sodium Chloride () 1,000 mls @ 100 mls/hr IV .Q10H [facility] Last Admin: 06/26/18 04:43 Dose: 100 mls/hr Metoprolol Tartrate (Lopressor (Beta Chitra)) 50 mg PO BID [facility] Last Admin: 06/26/18 10:21 Dose: 50 mg Nitroglycerin (Nitrostat) 0.4 mg SUBLINGUAL Q5M PRN PRN Reason: CHEST PAIN Sodium Chloride () 5 - 15 ml IV UD PRN PRN Reason: SALINE FLUSH Last Admin: 06/25/18 18:28 Dose: 10 ml Medical Necessity - Tobacco Use Smoking Status: Former smoker Assessment/Plan All Active Problems (Last Updated 12/29/17 @ 11:31 by SERENITY Jensen) Central chest pain (Acute) Chest pain (Acute) Abnormal EKG (Acute 11/15/17) Unstable angina (Acute) 1. Unstable angina States chest pain is resolved. Troponins x3 were negative. EKG showed T wave inversions in lead I and aVL and nonspecific ST changes. Due to have a stress test this morning. Awaiting MRI results then patient will go for stress test. on aspirin, plavix, statin. on therapeutic lovenox cardiology on board 2. TIA: had left facial droop yesterday, which has largely resolved this morning. CT head was negative. MRA of the head was normal and MRA of the neck showed 50-69% stenosis of the bilateral ICA. Further evaluation with sonography recommended. will get USG of the carotids on aspirin and plavix as well as statin 3. CAD status post CABG x2: Aspirin, Plavix as under 1. 4. Hypertension: Controlled. On metoprolol 5. Right hip fracture status post ORIF in January 2017: Stable. DVT prophylaxis: Therapeutic Lovenox. Code Visit Inpatient E&M: 25653 Subs Hosp L2
--- NOTE | 2018-06-26 13:13 | PN_ITS ---
Patient Problems: Active and Suspected Problems (Last Updated 12/29/17 @ 11:31 by Betito Hines NP- C) Central chest pain (Acute) Chest pain (Acute) Subjective: Patient seen and examined. He was admitted with complaint of chest pain was being managed for unstable angina and was due to have stressed this morning. I advised that he was noted to have a left facial droop and a CT of the head and was negative for any infarct. MRI done this morning report pending. Facial droop is likely resolved. He has no complaints and feels well. His chest pain moved to his left shoulder. Review of systems otherwise negative. Labs and vitals reviewed. Vitals/I&O's: Vital Signs Temp Pulse Resp BP Pulse Ox 98.5 F 72 16 118/75 96 06/26/18 12:00 06/26/18 12:00 06/26/18 12:00 06/26/18 12:00 06/26/18 12:00 Oxygen Flow Rate (L/min) 2 Oxygen Delivery Method Room Air Weight: 173 lb 11.588 oz Body Mass Index (BMI) 27.1 Finger Stick Blood Glucose 93 Intake and Output for Last 24 Hours 06/24/18 06/25/18 06/26/18 23:59 23:59 23:59 Intake Total 1040 / 1040 1676 / 1676 1219 / 1219 Output Total 2 / 2 Balance 1040 / 1040 1674 / 1674 1219 / 1219 General: Alert, Oriented x3, Cooperative, No apparent distress HEENT: Atraumatic, PERRLA, EOMI, Normocephalic Oral: Moist Mucosa Neck: Supple, No JVD, Negative Carotid Bruits Lungs: Clear to auscultation, Normal air movement, No rhonchi, No wheeze, No rales Cardiovascular: Regular rate, Regular Rhythm, Normal S1, Normal S2, No murmurs Abdomen: Bowel Sounds Present, Soft, Non Tender, Non-Distended, No Hepato- splenomegaly Extremities: No clubbing, No cyanosis, No edema, Capillary Refill Less than 3 Seconds Skin: No rashes, No breakdown Musculoskeletal: No Tenderness to Palpation of Joints or Extremities Lymphatic: No Cervical, Supraclavicular, or Inguinal Adenopathy Neurological: Cranial nerves II-XII grossly intact Psych/Mental Status: Normal Affect, Appropriate, Alert and oriented to time, place, person, mood and affect Laboratory Results 06/25/18 17:06: POC Glucose 93 06/26/18 05:46: WBC 6.3, RBC 4.17 L, Hgb 12.1 L, Hct 37.5 L, MCV 89.9, MCH 29.0, MCHC 32.3, RDW 13.9, RDW Differential 45.9 H, Plt Count 202, MPV 10.1, Immature Gran % (Auto) 0.000, Neut % (Auto) 59.6, Lymph % (Auto) 24.1, [place] % (Auto) 12.5 H, Eos % (Auto) 3.3, Baso % (Auto) 0.5, Absolute Neuts (auto) 3.8, Absolute Lymphs (auto) 1.52, Total Counted Not Reportable Diagnostic Data Chest X-Ray 06/24/18 07:06 IMPRESSION: No radiographic evidence of acute cardiopulmonary disease. Electronically Signed: Tamera Owens MD at 9:01 EDT , Service support , Brain CT 06/25/18 17:06 IMPRESSION: Normal unenhanced CT scan of the brain. Electronically Signed: Delbert Cabral MD at 17:29 EDT , Service support , ADDENDUM: 06/25/18 1743 IMPRESSION: Normal unenhanced CT scan of the brain. N.B. : The above information has been verbally conveyed by Delbert Cabral MD to Dr. Sharmila MD, on 06/25/2018 17:36:59 (ET). Electronically Signed: Delbert Cabral MD at 17:29 EDT , Service support , Neck MRA 06/26/18 05:55 IMPRESSION: 50-69% stenosis of the bilateral ICA. Further evaluation with sonography is recommended. Electronically Signed: Paco Membreno MD at 12:57 EDT Tel , Service support , Current Medications Acetaminophen (Tylenol) 650 mg PO Q4H PRN PRN PRN Reason: HEADACHE/FEVER (T>100F) Last Admin: 06/26/18 02:23 Dose: 650 mg Aspirin (Ecotrin) 81 mg PO DAILY@0800 [facility] Last Admin: 06/26/18 10:20 Dose: 81 mg Atorvastatin Calcium (Lipitor) 40 mg PO QHS [facility] Last Admin: 06/25/18 21:11 Dose: Not Given Clopidogrel Bisulfate (Plavix) 75 mg PO DAILY [facility] Last Admin: 06/26/18 10:20 Dose: 75 mg Enoxaparin Sodium (Lovenox) 80 mg 1 mg/kg (70 mg) SC Q12 [facility] Last Admin: 06/26/18 10:20 Dose: 80 mg Sodium Chloride () 1,000 mls @ 100 mls/hr IV .Q10H [facility] Last Admin: 06/26/18 04:43 Dose: 100 mls/hr Metoprolol Tartrate (Lopressor (Beta Chitra)) 50 mg PO BID [facility] Last Admin: 06/26/18 10:21 Dose: 50 mg Nitroglycerin (Nitrostat) 0.4 mg SUBLINGUAL Q5M PRN PRN Reason: CHEST PAIN Sodium Chloride () 5 - 15 ml IV UD PRN PRN Reason: SALINE FLUSH Last Admin: 06/25/18 18:28 Dose: 10 ml Medical Necessity - Tobacco Use Smoking Status: Former smoker Assessment/Plan All Active Problems (Last Updated 12/29/17 @ 11:31 by CHRISTIANO JensenC) Central chest pain (Acute) Chest pain (Acute) Abnormal EKG (Acute 11/15/17) Unstable angina (Acute) 1. Unstable angina * States chest pain is resolved. Troponins x3 were negative. * EKG showed T wave inversions in lead I and aVL and nonspecific ST changes. * Due to have a stress test this morning. Awaiting MRI results then patient will go for stress test. * on aspirin, plavix, statin. * on therapeutic lovenox * cardiology on board * 2. TIA: * had left facial droop yesterday, which has largely resolved this morning. CT head was negative. * MRA of the head was normal and MRA of the neck showed 50-69% stenosis of the bilateral ICA. Further evaluation with sonography recommended. * will get USG of the carotids * on aspirin and plavix as well as statin * 3. CAD status post CABG x2: Aspirin, Plavix as under 1. 4. Hypertension: * Controlled. On metoprolol 5. Right hip fracture status post ORIF in January 2017: Stable. DVT prophylaxis: Therapeutic Lovenox. Code Visit Inpatient E&M: 24668 Subs Hosp L2
--- NOTE | 2018-06-26 13:54 | CDU_ITS ---
Reason For Study: TIA Rt. Velocities/BP Lt. Velocities/BP Prox CCA 76/19 cm/sec. Prox CCA 200/41 cm/sec. Mid CCA 80/19 cm/sec. Mid CCA 102/30 cm/sec. Dist CCA 77/23 cm/sec. Dist CCA 140/34 cm/sec. Prox ICA 76/15 cm/sec. Prox ICA 93/30 cm/sec. Mid ICA 106/27 cm/sec. Mid ICA 149/40 cm/sec. Dist ICA 75/29 cm/sec. Dist ICA 125/41 cm/sec. Rt. ICA/CCA = 1.4. Lt. ICA/CCA = 1.0. Prox ECA 93/7 cm/sec. Prox ECA 124/17 cm/sec. Rt. Vert. 63/15 cm/sec. Lt. Vert. 71/25 cm/sec. Right Extracranial There is homogeneous, smooth atherosclerotic plaque noted in the right common carotid artery. There is heterogeneous, irregular atherosclerotic plaque noted in the right internal carotid artery. The tortuous nature of the right internal carotid artery may result in flow velocities overestimating the degree of stenosis. There is no significant atherosclerotic plaque noted in the right external carotid artery. Antegrade flow is noted in the right vertebral artery. Left Extracranial There is homogeneous, smooth atherosclerotic plaque noted in the left common carotid artery. There is heterogeneous, irregular atherosclerotic plaque noted in the left internal carotid artery. There is homogeneous, smooth atherosclerotic plaque noted in the left external carotid artery. Antegrade flow is noted in the left vertebral artery. Procedure Carotid Duplex 20571. Exam performed in department. 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 Normal flow right external carotid Heterogenous calcific plague at the proximal left internal carotid with 50-69% stenosis. Mild disease left external carotid, <50% stenosis Patent and antegrade vertebrals bilaterally Ordering Physician: Divina Lopez Referring Physician: LUCHO SHEARER Performed By: Inna Butt, DIEGO, RVT
[2018-06-26] MEDS: Atorvastatin Calcium 40 MG Tablet PO (21:16)
[2018-06-26] MEDS: MELATONIN 3 MG TABLET PO (22:21)
[2018-06-27] VITALS (7 sets, daily range): BP systolic 140–162; BP diastolic 68–88; PULSE 74–88; RESP 14–16; TEMP 36.8–36.9; O2SAT 98
--- NOTE | 2018-06-27 05:55 | EKG12_ITS ---
Test Reason : LIGHTHEADED Blood Pressure : / mmHG Vent. Rate : 066 BPM Atrial Rate : 066 BPM P-R Int : 152 ms QRS Dur : 086 ms QT Int : 412 ms P-R-T Axes : 022 042 097 degrees QTc Int : 431 ms Normal sinus rhythm T wave abnormality, consider anterolateral ischemia Abnormal ECG Confirmed by TASHA RIBERA, YEIMI ([id number]), technical writer and editor BRENDAN GUPTA ([id number]) on 07/03/2018 1:04:13 PM Referred By: DOT Confirmed By:YEIMI CORDOVA MD
[2018-06-27] MEDS: Aspirin E.C. 81 MG Tablet PO (06:22)
[2018-06-27] MEDS: Clopidogrel Bisulfate 75 MG Tablet PO (06:22)
[2018-06-27 06:46] LABS: Absolute Lymphocyte Count 1.39 X10^3/ul (0.83-4.51); Absolute Neutrophil Count 4.6 X10^3/uL (2.0-7.7); Basophil# 0.04 X10^3/uL; Basophil% 0.6 % (0-1); Eosinophil# 0.25 X10^3/uL; Eosinophils% 3.7 % (0-5); Hemoglobin 12.9 g/dl (13.0-16.5); Lymphocyte # 1.39 X10^3/ul (4.0); Lymphocyte % 20.4 % (19-41); Mean Corp Hgb Conc 32.3 g/gl (32-36); Mean Corpuscular Hgb 28.9 pg (27.0-32.0); Mean Corpuscular Volume 89.7 fL (80-94); Mean Platelet Vol. 10.4 fl (6.2-12.0); Monocyte# 0.49 X10^3/uL; Monocyte% 7.2 % (0-10); Neutrophil # 4.62 X10^3/uL (2.7-7.7); Platelet Count 224 K/mm3 (150-450); RBC Distribution Width CV 13.9 % (11.6-14.6); RBC Distribution Width SD 45.9 fl (35.1-43.9); Red Blood Count 4.46 M/mm3 (4.6-6.2); White Blood Count 6.8 K/mm3 (4.4-11.0)
[2018-06-27 06:47] LABS: POSITIVE COUNT NO; POSITIVE DIFFERENTIAL NO; POSITIVE MORPHOLOGY NO; Partial Thromboplast Time 34.2 Seconds (24.1-36.2); Prothrombin Time (Protime)PT. 13.2 SECONDS (11.7-14.9)
[2018-06-27 06:59] LABS: Anion Gap 7 (5-15); BUN 13 mg/dL (7-18); BUN/Creat Ratio 14.6 RATIO (10-20); Calcium,Total 8.6 mg/dL (8.5-10.1); Chloride 109 mmol/L (98-107); Creatinine, Serum 0.89 mg/dL (0.70-1.30); EST Glomerular Filtration Rate 91 mL/min (>60); Est Glom Filt Rate - Afr Amer 110 mL/min (>60); Estimated Creatinine Clearance 76.33 ml/min; Glucose 99 mg/dL (74-106); Potassium 3.8 mmol/L (3.5-5.1); Sodium Level 141 mmol/L (136-145)
--- NOTE | 2018-06-27 10:20 | CON.PCM_ITS ---
Reason for Consult Date of Consultation: 06/27/18 Reason for Consultation: facial droop History of Present Illness: The patient is a 68 year old M [] Past Medical History Past Medical History (Chronic Problems): Chronic Problems (Last Updated 12/27/17 @ 09:56 by Anna Marie Lai) CAD (coronary artery disease) (Chronic) Pure hypercholesterolemia (Chronic) Essential (primary) hypertension (Chronic) History of left heart catheterization (Chronic 11/15/17) 02/13/[address] Choe @ [facility]: 100% occlusion of LAD, recommend CABG but pt needed immediate surgery for right peritrochanteric femur fracture. Per Dr. Santillan @ [facility]:100% occlusion mid LAD, 70% stenosis in proximal LAD, good collaterals from mid PDA to distal LAD. History of kidney stones (Chronic) Nonrheumatic mitral valve regurgitation (Chronic) 1+ per echo 11/15/[address] [facility]; EF 55-60%, Atherosclerotic heart disease of [place] coronary artery without angina pectoris (Chronic 11/17/17) Pedicled ARZOLA graft to LAD, SVG to ramus branch(diagonal) per Dr. Enrique Baltazar @ [facility] S/P CABG x 2 (Chronic 11/17/17) Pedicled ARZOLA graft to LAD, SVG to ramus branch(diagonal) per Dr. Enrique Baltazar @ [facility] Fracture, intertrochanteric, right femur (Chronic) Surgical repair 02/05/[address] Wolf, [facility] Medical History: Medical History (Last Updated 12/29/17 @ 11:31 by Betito Hines, TECHNICAL SERVICES CONSULTANT-C) Pure hypercholesterolemia (Chronic) E78.00 Essential (primary) hypertension (Chronic) I10 History of kidney stones (Chronic) Z87.442 Nonrheumatic mitral valve regurgitation (Chronic) I34.0 1+ per echo 11/15/[address] [facility]; EF 55-60%, Atherosclerotic heart disease of [place] coronary artery without angina pectoris (Chronic) Onset Date: 11/17/17 I25.10 Pedicled ARZOLA graft to LAD, SVG to ramus branch(diagonal) per Dr. Enrique Baltazar @ [facility] Abnormal EKG (Acute) Onset Date: 11/15/17 R94.31 Unstable angina (Acute) Allergies No Known Allergies Allergy (Verified 06/24/18 07:01) Home Medications: Ambulatory Orders Medication Instructions Recorded aspirin 81 mg tablet,delayed 162 mg PO DAILY tab 12/27/17 release metoprolol tartrate 50 mg tablet 50 mg PO BID #180 tab 02/22/18 [place]-3 1 tab PO DAILY 06/24/18 Surgical History: Surgical History (Last Updated 12/27/17 @ 09:56 by Anna Marie Lai) History of left heart catheterization (Chronic) Onset Date: 11/15/17 Z98.890 02/13/[address] Choe @ [facility]: 100% occlusion of LAD, recommend CABG but pt needed immediate surgery for right peritrochanteric femur fracture. Per Dr. Santillan @ [facility]:100% occlusion mid LAD, 70% stenosis in proximal LAD, good collaterals from mid PDA to distal LAD. S/P CABG x 2 (Chronic) Onset Date: 11/17/17 Z95.1 Pedicled ARZOLA graft to LAD, SVG to ramus branch(diagonal) per Dr. Enrique Baltazar @ [facility] Fracture, intertrochanteric, right femur (Chronic) S72.141A Surgical repair 02/05/[address] Wolf, [facility] Surgical History: coronary bypass surgery - October 2017, two-vessel Lives: Spouse/ Significant Other Smoking Status: Former smoker Alcohol: None Drugs: None - *Family History Maternal Family History: Family History (Last Updated 06/24/18 @ 11:14 by Moy Engel MD) Father CVA (cerebral vascular accident) Mother HEART DISE Other Cancer Heart disease History Items: No pertinent history Paternal Family History: Family History (Last Updated 06/24/18 @ 11:14 by Moy Engel MD) Father CVA (cerebral vascular accident) Mother HEART DISE Other Cancer Heart disease History Items: No pertinent history Patient Problems: Active and Suspected Problems (Last Updated 12/29/17 @ 11:31 by CHRISTIANO Jensen) Central chest pain (Acute) Chest pain (Acute) - Physical Exam Vital Signs Temp Pulse Resp BP Pulse Ox 36.8 C 80 14 162/88 H 98 06/27/18 09:00 06/27/18 09:00 06/27/18 09:00 06/27/18 09:00 06/27/18 09:00 Oxygen Flow Rate (L/min) 2 Oxygen Delivery Method Room Air Weight: 78.8 kg Body Mass Index (BMI) 27.1 Finger Stick Blood Glucose 93 Intake and Output for Last 24 Hours 06/25/18 06/26/18 06/27/18 23:59 23:59 23:59 Intake Total 1676 / 1676 1459 / 1459 60 / 60 Output Total 575 / 575 Balance 1674 / 1674 1459 / 1459 -515 / -515 Laboratory Tests Past 24 Hrs 06/27/18 06/27/18 06/27/18 05:40 05:40 05:40 WBC 6.8 RBC 4.46 L Hgb 12.9 L Hct 40.0 MCV 89.7 MCH 28.9 MCHC 32.3 RDW 13.9 RDW Differential 45.9 H Plt Count 224 MPV 10.4 Immature Gran % (Auto) 0.100 Neut % (Auto) 68.0 Lymph % (Auto) 20.4 [place] % (Auto) 7.2 Eos % (Auto) 3.7 Baso % (Auto) 0.6 Absolute Neuts (auto) 4.6 Absolute Lymphs (auto) 1.39 Total Counted Not Reportable PT 13.2 INR 1.0 APTT 34.2 Sodium 141 Potassium 3.8 Chloride 109 H Carbon Dioxide 25.0 Anion Gap 7 BUN 13 Creatinine 0.89 Estim Creat Clear Calc 76.33 Est GFR (MDRD) Af Amer 110 Est GFR (MDRD) Non-Af 91 BUN/Creatinine Ratio 14.6 Glucose 99 Calcium 8.6 mri brain reviewed, no acute. mra head and neck reviewed, no significant stenosis Assessment/Plan All Active Problems (Last Updated 12/29/17 @ 11:31 by Betito Hines NP-C) Central chest pain (Acute) Chest pain (Acute) Abnormal EKG (Acute 11/15/17) Unstable angina (Acute)
--- NOTE | 2018-06-27 11:05 | STRESSREP ---
Stress Test Report Date: 06-27-18 Procedure: Exercise tolerance test/imaging study Indications: Chest pain; CAD; CABG Consent: Per the patient Procedure: The patient exercised on a Jose protocol for 9 minutes completing Stage III achieving a peak heart rate of 160 bpm (103 % predicted maximal heart rate) with a peak blood pressure 198/84 mmHg and a peak MET capacity of 10 METs. The baseline ECG demonstrated normal sinus rhythm. The peak exercise ECG demonstrated no obvious ECG changes. There were no cardiac dysrhythmias pretest, during exercise, or recovery. The functional capacity was considered good. There was no complaint of chest discomfort during exercise or recovery. The examination was discontinued secondary to dyspnea. Impression: 1. Technically adequate (percent predicted maximal heart rate greater than 85%) exercise tolerance test 2. Peak exercise ECG with no obvious ECG changes 3. There were no cardiac dysrhythmias pretest, during exercise, or recovery 4. Nuclear images pending Myocardial perfusion imaging study: Technique: The patient was injected with 11.6 mCi of technetium 99m Cardiolite and subsequently rest SPECT Cardiolite nuclear imaging was obtained in the horizontal long, vertical long, and short axis views. The patient exercised on a Jose protocol for 9 minutes completing Stage III achieving a peak heart rate of 160 bpm (103 % predicted maximal heart rate) with a peak blood pressure 198/84 mmHg and a peak MET capacity of 10 METs. The patient was injected with 33.3 mCi of technetium 99m Cardiolite and subsequently stress SPECT Cardiolite nuclear imaging was obtained in the horizontal long, vertical long, and short axis views. A gated Cardiolite study at peak stress was obtained. Interpretation: Rest and stress SPECT Cardiolite nuclear imaging status post realignment, normalization, and attenuation correction, demonstrates diminished tracer uptake in portions of the distal anterior, distal anteroseptal, anterior apical, and septal apical segments without significant change between rest and stress. There are similar type findings on the resting and stress polar map images. There is diminished and systolic thickening and brightening in the aforementioned areas. The gated Cardiolite study demonstrates diminished myocardial thickening and inward wall motion in the aforementioned areas. The reported LVEF is 57 %. Impression: 1. Rest and stress SPECT Cardiolite nuclear imaging demonstrate the appearance of diminished tracer uptake in portions of the distal anterior, distal anteroseptal, anteroapical, and septal apical segments without significant change between rest and stress appearing compatible with an area of previous myocardial injury/infarction with no myocardial perfusion changes for associated stress-induced myocardial ischemia. 2. The gated Cardiolite study reports an LVEF of 57 %. This note was generated with Izzuiation software. It may contain incorrect words, spelling, and punctuation that were not noted in checking the note before signing.
--- NOTE | 2018-06-27 11:10 | PCM.PN.CARD ---
Subjectve: The patient has reported no new chest discomfort or difficulty breathing. There is been no new neurologic symptoms/concerns. Objective: Vital Signs Temp Pulse Resp BP Pulse Ox 98.2 F 80 14 162/88 H 98 06/27/18 09:00 06/27/18 09:00 06/27/18 09:00 06/27/18 09:00 06/27/18 09:00 Oxygen Flow Rate (L/min) 2 Oxygen Delivery Method Room Air Weight: 173 lb 11.588 oz Body Mass Index (BMI) 27.1 Finger Stick Blood Glucose 93 Intake and Output for Last 24 Hours 06/25/18 06/26/18 06/27/18 23:59 23:59 23:59 Intake Total 1676 / 1676 1459 / 1459 60 / 60 Output Total 575 / 575 Balance 1674 / 1674 1459 / 1459 -515 / -515 General: Awake, Alert, Oriented x 3, Cooperative, No Acute Distress HEENT: Atraumatic, Normocephalic, PERRL, EOMI, Sclera Non Icteric Oral: Moist Mucosa Neck: Supple, Good ROM, No JVD Lungs: Clear to auscultation Cardiovascular: Regular Rhythm, Normal S1, Normal S2 Abdomen: Bowel Sounds Present Extremities: No edema Psych/Mental Status: Appropriate 06/27/18 05:40: WBC 6.8, RBC 4.46 L, Hgb 12.9 L, Hct 40.0, MCV 89.7, MCH 28.9, MCHC 32.3, RDW 13.9, RDW Differential 45.9 H, Plt Count 224, MPV 10.4, Immature Gran % (Auto) 0.100, Neut % (Auto) 68.0, Lymph % (Auto) 20.4, [place] % (Auto) 7.2, Eos % (Auto) 3.7, Baso % (Auto) 0.6, Absolute Neuts (auto) 4.6, Total Counted Not Reportable 06/27/18 05:40: Sodium 141, Potassium 3.8, Chloride 109 H, Carbon Dioxide 25.0, Anion Gap 7, BUN 13, Creatinine 0.89, Est GFR (MDRD) Af Amer 110, Est GFR (MDRD) Non-Af 91, BUN/Creatinine Ratio 14.6, Glucose 99, Calcium 8.6 06/27/18 05:40: PT 13.2, INR 1.0, APTT 34.2 Rhythm: Sinus rhythm Stress Test: Stress Test Report Date: 06-27-18 Procedure: Exercise tolerance test/imaging study Indications: Chest pain; CAD; CABG Consent: Per the patient Procedure: The patient exercised on a Jose protocol for 9 minutes completing Stage III achieving a peak heart rate of 160 bpm (103 % predicted maximal heart rate) with a peak blood pressure 198/84 mmHg and a peak MET capacity of 10 METs. The baseline ECG demonstrated normal sinus rhythm. The peak exercise ECG demonstrated no obvious ECG changes. There were no cardiac dysrhythmias pretest, during exercise, or recovery. The functional capacity was considered good. There was no complaint of chest discomfort during exercise or recovery. The examination was discontinued secondary to dyspnea. Impression: 1. Technically adequate (percent predicted maximal heart rate greater than 85%) exercise tolerance test 2. Peak exercise ECG with no obvious ECG changes 3. There were no cardiac dysrhythmias pretest, during exercise, or recovery 4. Nuclear images pending Myocardial perfusion imaging study: Technique: The patient was injected with 11.6 mCi of technetium 99m Cardiolite and subsequently rest SPECT Cardiolite nuclear imaging was obtained in the horizontal long, vertical long, and short axis views. The patient exercised on a Jose protocol for 9 minutes completing Stage III achieving a peak heart rate of 160 bpm (103 % predicted maximal heart rate) with a peak blood pressure 198/84 mmHg and a peak MET capacity of 10 METs. The patient was injected with 33.3 mCi of technetium 99m Cardiolite and subsequently stress SPECT Cardiolite nuclear imaging was obtained in the horizontal long, vertical long, and short axis views. A gated Cardiolite study at peak stress was obtained. Interpretation: Rest and stress SPECT Cardiolite nuclear imaging status post realignment, normalization, and attenuation correction, demonstrates diminished tracer uptake in portions of the distal anterior, distal anteroseptal, anterior apical, and septal apical segments without significant change between rest and stress. There are similar type findings on the resting and stress polar map images. There is diminished and systolic thickening and brightening in the aforementioned areas. The gated Cardiolite study demonstrates diminished myocardial thickening and inward wall motion in the aforementioned areas. The reported LVEF is 57 %. Impression: 1. Rest and stress SPECT Cardiolite nuclear imaging demonstrate the appearance of diminished tracer uptake in portions of the distal anterior, distal anteroseptal, anteroapical, and septal apical segments without significant change between rest and stress appearing compatible with an area of previous myocardial injury/infarction with no myocardial perfusion changes for associated stress-induced myocardial ischemia. 2. The gated Cardiolite study reports an LVEF of 57 %. Medical Necessity - Tobacco Use Smoking Status: Former smoker Assessment/Plan 1. Chest pain The patient has been undergoing cardiovascular evaluation. Status post evaluation by internal medicine with respect to his neurologic concerns he has been allowed to proceed with further cardiovascular evaluation with an exercise tolerance test/imaging study. This was performed. The patient noted no obvious stress-induced symptoms of chest discomfort. He noted he actually felt better after exercising on the treadmill. His stress nuclear imaging study demonstrated findings compatible with an area of previous myocardial injury/infarction with no myocardial perfusion changes considered diagnostic for associated stress-induced myocardial ischemia. From a cardiac standpoint his symptoms may be non-CAD related. He has had mixed symptoms some of which appear compatible with musculoskeletal discomfort. Thus she will continue cardiovascular medical therapy. It was not felt he required further invasive cardiovascular evaluation at this time. He should continue to follow with his primary care physician for further noncardiac evaluation of his symptoms. 2. CAD status post CABG He will continue risk factor evaluation care as deemed appropriate. 3. Hyperlipidemia He will continue lipid-lowering therapy. 4. Hypertension He will continue antihypertensive therapy with adjustment as needed. Overall, the patient will continue medical management. He should continue to follow with his primary immunology specialist-Dr. Lm Choe-as an outpatient. This note was generated using a voice recognition system and there may be incorrect words, spelling or punctuation that were not noted when reviewing the office note prior to saving.
[2018-06-27] MEDS: Metoprolol Tartrate 50 MG Tablet PO (11:18)
--- NOTE | 2018-06-27 11:44 | PCM.CONS.GEN ---
Problem List (1) Carotid stenosis Status: Acute Qualifiers: Laterality: bilateral Qualified Code(s): I65.23 - Occlusion and stenosis of bilateral carotid arteries Reason for Consult Date of Consultation: 06/27/18 History of Present Illness: The patient is a 68 year old M bilateral extracranial carotid artery occlusive disease. I been asked to see the patient with Dr. Lopez any written compromise surgical consult recommendations will return to her. This is a 68-year-old Maikol gentleman. He was admitted to the [facility] on 06/24/2018 with chest pain and headache. The patient is vomits and states that he has been under extreme stress at home. He then developed some left facial droop 2 days ago which is slowly improving though perhaps not completely resolved. There was some slight numbness or feeling of abnormality of the left face as well. The patient had a brain MRI and head and neck studies. The MRI and MRA of the head were normal. The neck was felt to have 50-69% bilateral internal carotid stenosis. Carotid duplex exam was then obtained yesterday June 26, 2018. I interpreted and reviewed that study. He has less than 50% stenosis of the right internal carotid and 50-69% stenosis of the left internal carotid. There is some calcific plaque noted bilaterally. I did not see any clinically significant areas of focal stenosis. The patient has also been seen by Dr. Bubba Vásquez and cardiac stress test was performed. Ejection fraction 57%. There is evidence of a previous infarction. Patient's laboratory demonstrates a white count of 7.7 with hemoglobin 12.9 hematocrit 39.9 platelet count 219,000. BUN is 13 creatinine 0.89. Triglycerides are 188 cholesterol 209 LDL 130 the LDL is 38 HDL is 41 TSH is 3.61 2017 the patient had acute myocardial infarction and coronary bypass surgery as noted Past Medical History Past Medical History (Chronic Problems): Chronic Problems (Last Updated 12/27/17 @ 09:56 by Anna Marie Lai) CAD (coronary artery disease) (Chronic) Pure hypercholesterolemia (Chronic) Essential (primary) hypertension (Chronic) History of left heart catheterization (Chronic 11/15/17) 02/13/[address] Choe @ [facility]: 100% occlusion of LAD, recommend CABG but pt needed immediate surgery for right peritrochanteric femur fracture. Per Dr. Santillan @ [facility]:100% occlusion mid LAD, 70% stenosis in proximal LAD, good collaterals from mid PDA to distal LAD. History of kidney stones (Chronic) Nonrheumatic mitral valve regurgitation (Chronic) 1+ per echo 11/15/17 @ [facility]; EF 55-60%, Atherosclerotic heart disease of [place] coronary artery without angina pectoris (Chronic 11/17/17) Pedicled ARZOLA graft to LAD, SVG to ramus branch(diagonal) per Dr. Enrique Baltazar @ [facility] S/P CABG x 2 (Chronic 11/17/17) Pedicled ARZOLA graft to LAD, SVG to ramus branch(diagonal) per Dr. Enrique Baltazar @ [facility] Fracture, intertrochanteric, right femur (Chronic) Surgical repair 02/05/[address] Wolf, [facility] Medical History: Medical History (Last Updated 12/29/17 @ 11:31 by Betito Hines, JEWELRY DIPPER-C) Pure hypercholesterolemia (Chronic) E78.00 Essential (primary) hypertension (Chronic) I10 History of kidney stones (Chronic) Z87.442 Nonrheumatic mitral valve regurgitation (Chronic) I34.0 1+ per echo 11/15/17 @ [facility]; EF 55-60%, Atherosclerotic heart disease of [place] coronary artery without angina pectoris (Chronic) Onset Date: 11/17/17 I25.10 Pedicled ARZOLA graft to LAD, SVG to ramus branch(diagonal) per Dr. Enrique Baltazar @ [facility] Abnormal EKG (Acute) Onset Date: 11/15/17 R94.31 Unstable angina (Acute) Allergies No Known Allergies Allergy (Verified 06/24/18 07:01) Home Medications: Ambulatory Orders Medication Instructions Recorded aspirin 81 mg tablet,delayed 162 mg PO DAILY tab 12/27/17 release metoprolol tartrate 50 mg tablet 50 mg PO BID #180 tab 02/22/18 [place]-3 1 tab PO DAILY 06/24/18 Surgical History: Surgical History (Last Updated 12/27/17 @ 09:56 by Anna Marie Lai) History of left heart catheterization (Chronic) Onset Date: 11/15/17 Z98.890 02/13/[address] Choe @ [facility]: 100% occlusion of LAD, recommend CABG but pt needed immediate surgery for right peritrochanteric femur fracture. Per Dr. Santillan @ [facility]:100% occlusion mid LAD, 70% stenosis in proximal LAD, good collaterals from mid PDA to distal LAD. S/P CABG x 2 (Chronic) Onset Date: 11/17/17 Z95.1 Pedicled ARZOLA graft to LAD, SVG to ramus branch(diagonal) per Dr. Enrique Baltazar @ [facility] Fracture, intertrochanteric, right femur (Chronic) S72.141A Surgical repair 02/05/[address] Wolf, [facility] Surgical History: coronary bypass surgery - October 2017, two-vessel Lives: Spouse/ Significant Other Smoking Status: Former smoker Alcohol: None Drugs: None - *Family History Maternal Family History: Family History (Last Updated 06/24/18 @ 11:14 by Moy Engel MD) Father CVA (cerebral vascular accident) Mother HEART DISE Other Cancer Heart disease History Items: No pertinent history Paternal Family History: Family History (Last Updated 06/24/18 @ 11:14 by Moy Engel MD) Father CVA (cerebral vascular accident) Mother HEART DISE Other Cancer Heart disease History Items: No pertinent history Review of Systems Constitutional: Reports: - - Headache bilateral frontal. Denies: Anorexia Eyes: Denies: Blurred vision HEENT: Denies: Difficulty Hearing, Difficulty Swallowing Cardiovascular: Reports: Chest Pain Respiratory: Denies: Cough Gastrointestinal: Denies: Abdominal Pain Neurological: Reports: - - Left facial weakness Patient Problems: Active and Suspected Problems (Last Updated 12/29/17 @ 11:31 by Betito Hines JEWELRY DIPPER-C) Central chest pain (Acute) Chest pain (Acute) Carotid stenosis (Acute) - Physical Exam General: Alert, Oriented x3, Cooperative, No apparent distress HEENT: - - Slight droop and flattening of the left face and upper lip Otherwise good motor control Neck: Supple, - - There is 3+ bilaterally no carotid bruits Lungs: Clear to auscultation, Normal air movement Cardiovascular: Regular rate, Regular Rhythm, - - Lateral radial and brachials are 3+ Vital Signs Temp Pulse Resp BP Pulse Ox 98.2 F 88 14 148/80 H 98 06/27/18 09:00 06/27/18 11:34 06/27/18 09:00 06/27/18 11:18 06/27/18 09:00 Oxygen Flow Rate (L/min) 2 Oxygen Delivery Method Room Air Weight: 173 lb 11.588 oz Body Mass Index (BMI) 27.1 Finger Stick Blood Glucose 93 Intake and Output for Last 24 Hours 06/25/18 06/26/18 06/27/18 23:59 23:59 23:59 Intake Total 1676 / 1676 1459 / 1459 60 / 60 Output Total 575 / 575 Balance 1674 / 1674 1459 / 1459 -515 / -515 Laboratory Tests Past 24 Hrs 06/27/18 06/27/18 06/27/18 05:40 05:40 05:40 WBC 6.8 RBC 4.46 L Hgb 12.9 L Hct 40.0 MCV 89.7 MCH 28.9 MCHC 32.3 RDW 13.9 RDW Differential 45.9 H Plt Count 224 MPV 10.4 Immature Gran % (Auto) 0.100 Neut % (Auto) 68.0 Lymph % (Auto) 20.4 [place] % (Auto) 7.2 Eos % (Auto) 3.7 Baso % (Auto) 0.6 Absolute Neuts (auto) 4.6 Absolute Lymphs (auto) 1.39 Total Counted Not Reportable PT 13.2 INR 1.0 APTT 34.2 Sodium 141 Potassium 3.8 Chloride 109 H Carbon Dioxide 25.0 Anion Gap 7 BUN 13 Creatinine 0.89 Estim Creat Clear Calc 76.33 Est GFR (MDRD) Af Amer 110 Est GFR (MDRD) Non-Af 91 BUN/Creatinine Ratio 14.6 Glucose 99 Calcium 8.6 Assessment/Plan All Active Problems (Last Updated 12/29/17 @ 11:31 by Betito Hines, JEWELRY DIPPER-C) Central chest pain (Acute) Chest pain (Acute) Carotid stenosis (Acute) Abnormal EKG (Acute 11/15/17) Unstable angina (Acute) 68-year-old gentleman who presents to the hospital with chest pain and headache. He claims he is under extreme stress. He developed left facial droop which has improved. Imaging of the brain failed to demonstrate CVA. MRA of the neck suggested 50-69% bilateral carotid stenosis. Carotid duplex suggest less than 50% stenosis on the right and 50-69% stenosis on the left with some calcific plaque. I am not detecting any focal areas of clinically significant stenosis bilaterally. The patient will be seen by Dr. Osvaldo Fang neurology. At this point he might be postulating possible Sousa's palsy on the left but he is now currently interviewing the patient My recommendations would be for maximization of medical care. I think it would be reasonable to follow-up with a carotid duplex exam at 6 months. I appreciate the opportunity of assisting with the surgical care Bill Carpio M.D., F.A.C.S.
--- NOTE | 2018-06-27 11:48 | CON.PCM_ITS ---
Problem List (1) Carotid stenosis Status: Acute Qualifiers: Laterality: bilateral Qualified Code(s): I65.23 - Occlusion and stenosis of bilateral carotid arteries Reason for Consult Date of Consultation: 06/27/18 History of Present Illness: The patient is a 68 year old M bilateral extracranial carotid artery occlusive disease. I been asked to see the patient with Dr. Lopez any written compromise surgical consult recommendations will return to her. This is a 68-year-old Maikol gentleman. He was admitted to the [facility] on 06/24/2018 with chest pain and headache. The patient is vomits and states that he has been under extreme stress at home. He then developed some left facial droop 2 days ago which is slowly improving though perhaps not completely resolved. There was some slight numbness or feeling of abnormality of the left face as well. The patient had a brain MRI and head and neck studies. The MRI and MRA of the head were normal. The neck was felt to have 50-69% bilateral internal carotid stenosis. Carotid duplex exam was then obtained yesterday June 26, 2018. I interpreted and reviewed that study. He has less than 50% stenosis of the right internal carotid and 50-69% stenosis of the left internal carotid. There is some calcific plaque noted bilaterally. I did not see any clinically significant areas of focal stenosis. The patient has also been seen by Dr. Bubba Vásquez and cardiac stress test was performed. Ejection fraction 57%. There is evidence of a previous infarction. Patient's laboratory demonstrates a white count of 7.7 with hemoglobin 12.9 hematocrit 39.9 platelet count 219,000. BUN is 13 creatinine 0.89. Triglycerides are 188 cholesterol 209 LDL 130 the LDL is 38 HDL is 41 TSH is 3.61 2017 the patient had acute myocardial infarction and coronary bypass surgery as noted Past Medical History Past Medical History (Chronic Problems): Chronic Problems (Last Updated 12/27/17 @ 09:56 by Anna Marie Lai) CAD (coronary artery disease) (Chronic) Pure hypercholesterolemia (Chronic) Essential (primary) hypertension (Chronic) History of left heart catheterization (Chronic 11/15/17) 02/13/[address] Choe @ [facility]: 100% occlusion of LAD, recommend CABG but pt needed immediate surgery for right peritrochanteric femur fracture. Per Dr. Santillan @ [facility]:100% occlusion mid LAD, 70% stenosis in proximal LAD, good collaterals from mid PDA to distal LAD. History of kidney stones (Chronic) Nonrheumatic mitral valve regurgitation (Chronic) 1+ per echo 11/15/17 @ [facility]; EF 55-60%, Atherosclerotic heart disease of [place] coronary artery without angina pectoris (Chronic 11/17/17) Pedicled ARZOLA graft to LAD, SVG to ramus branch(diagonal) per Dr. Enrique Baltazar @ [facility] S/P CABG x 2 (Chronic 11/17/17) Pedicled ARZOLA graft to LAD, SVG to ramus branch(diagonal) per Dr. Enrique Baltazar @ [facility] Fracture, intertrochanteric, right femur (Chronic) Surgical repair 02/05/[address] Wolf, [facility] Medical History: Medical History (Last Updated 12/29/17 @ 11:31 by Betito Hines, LITHOGRAPHIC PROOFER-C) Pure hypercholesterolemia (Chronic) E78.00 Essential (primary) hypertension (Chronic) I10 History of kidney stones (Chronic) Z87.442 Nonrheumatic mitral valve regurgitation (Chronic) I34.0 1+ per echo 11/15/17 @ [facility]; EF 55-60%, Atherosclerotic heart disease of [place] coronary artery without angina pectoris (Chronic) Onset Date: 11/17/17 I25.10 Pedicled ARZOLA graft to LAD, SVG to ramus branch(diagonal) per Dr. Enrique Baltazar @ [facility] Abnormal EKG (Acute) Onset Date: 11/15/17 R94.31 Unstable angina (Acute) Allergies No Known Allergies Allergy (Verified 06/24/18 07:01) Home Medications: Ambulatory Orders Medication Instructions Recorded aspirin 81 mg tablet,delayed 162 mg PO DAILY tab 12/27/17 release metoprolol tartrate 50 mg tablet 50 mg PO BID #180 tab 02/22/18 [place]-3 1 tab PO DAILY 06/24/18 Surgical History: Surgical History (Last Updated 12/27/17 @ 09:56 by Anna Marie Lai) History of left heart catheterization (Chronic) Onset Date: 11/15/17 Z98.890 02/13/[address] Choe @ [facility]: 100% occlusion of LAD, recommend CABG but pt needed immediate surgery for right peritrochanteric femur fracture. Per Dr. Emile alonso @ [facility]:100% occlusion mid LAD, 70% stenosis in proximal LAD, good collaterals from mid PDA to distal LAD. S/P CABG x 2 (Chronic) Onset Date: 11/17/17 Z95.1 Pedicled ARZOLA graft to LAD, SVG to ramus branch(diagonal) per Dr. Enrique Baltazar @ [facility] Fracture, intertrochanteric, right femur (Chronic) S72.141A Surgical repair 02/05/[address] Wolf, [facility] Surgical History: coronary bypass surgery - October 2017, two-vessel Lives: Spouse/ Significant Other Smoking Status: Former smoker Alcohol: None Drugs: None - *Family History Maternal Family History: Family History (Last Updated 06/24/18 @ 11:14 by Moy Engel MD) Father CVA (cerebral vascular accident) Mother HEART DISE Other Cancer Heart disease History Items: No pertinent history Paternal Family History: Family History (Last Updated 06/24/18 @ 11:14 by Moy Engel MD) Father CVA (cerebral vascular accident) Mother HEART DISE Other Cancer Heart disease History Items: No pertinent history Review of Systems Constitutional: Reports: - - Headache bilateral frontal. Denies: Anorexia Eyes: Denies: Blurred vision HEENT: Denies: Difficulty Hearing, Difficulty Swallowing Cardiovascular: Reports: Chest Pain Respiratory: Denies: Cough Gastrointestinal: Denies: Abdominal Pain Neurological: Reports: - - Left facial weakness Patient Problems: Active and Suspected Problems (Last Updated 12/29/17 @ 11:31 by Betito Hines LITHOGRAPHIC PROOFER- C) Central chest pain (Acute) Chest pain (Acute) Carotid stenosis (Acute) - Physical Exam General: Alert, Oriented x3, Cooperative, No apparent distress HEENT: - - Slight droop and flattening of the left face and upper lip Otherwise good motor control Neck: Supple, - - There is 3+ bilaterally no carotid bruits Lungs: Clear to auscultation, Normal air movement Cardiovascular: Regular rate, Regular Rhythm, - - Lateral radial and brachials are 3+ Vital Signs Temp Pulse Resp BP Pulse Ox 98.2 F 88 14 148/80 H 98 06/27/18 09:00 06/27/18 11:34 06/27/18 09:00 06/27/18 11:18 06/27/18 09:00 Oxygen Flow Rate (L/min) 2 Oxygen Delivery Method Room Air Weight: 173 lb 11.588 oz Body Mass Index (BMI) 27.1 Finger Stick Blood Glucose 93 Intake and Output for Last 24 Hours 06/25/18 06/26/18 06/27/18 23:59 23:59 23:59 Intake Total 1676 / 1676 1459 / 1459 60 / 60 Output Total 575 / 575 Balance 1674 / 1674 1459 / 1459 -515 / -515 Laboratory Tests Past 24 Hrs 06/27/18 06/27/18 06/27/18 05:40 05:40 05:40 WBC 6.8 RBC 4.46 L Hgb 12.9 L Hct 40.0 MCV 89.7 MCH 28.9 MCHC 32.3 RDW 13.9 RDW Differential 45.9 H Plt Count 224 MPV 10.4 Immature Gran % (Auto) 0.100 Neut % (Auto) 68.0 Lymph % (Auto) 20.4 [place] % (Auto) 7.2 Eos % (Auto) 3.7 Baso % (Auto) 0.6 Absolute Neuts (auto) 4.6 Absolute Lymphs (auto) 1.39 Total Counted Not Reportable PT 13.2 INR 1.0 APTT 34.2 Sodium 141 Potassium 3.8 Chloride 109 H Carbon Dioxide 25.0 Anion Gap 7 BUN 13 Creatinine 0.89 Estim Creat Clear Calc 76.33 Est GFR (MDRD) Af Amer 110 Est GFR (MDRD) Non-Af 91 BUN/Creatinine Ratio 14.6 Glucose 99 Calcium 8.6 Assessment/Plan All Active Problems (Last Updated 12/29/17 @ 11:31 by Betito Hines, LITHOGRAPHIC PROOFER-C) Central chest pain (Acute) Chest pain (Acute) Carotid stenosis (Acute) Abnormal EKG (Acute 11/15/17) Unstable angina (Acute) 68-year-old gentleman who presents to the hospital with chest pain and headache. He claims he is under extreme stress. He developed left facial droop which has improved. Imaging of the brain failed to demonstrate CVA. MRA of the neck suggested 50-69% bilateral carotid stenosis. Carotid duplex suggest less than 50% stenosis on the right and 50-69% stenosis on the left with some calcific plaque. I am not detecting any focal areas of clinically significant stenosis bilaterally. The patient will be seen by Dr. Osvaldo Fang neurology. At this point he might be postulating possible Sousa's palsy on the left but he is now currently interviewing the patient My recommendations would be for maximization of medical care. I think it would be reasonable to follow-up with a carotid duplex exam at 6 months. I appreciate the opportunity of assisting with the surgical care Bill Carpio M.D., F.A.C.S.
--- NOTE | 2018-06-27 13:31 | PCM.DC ---
- Discharge Diagnoses Current Active Problems: Current Active and Chronic Problems (Last Updated 12/29/17 @ 11:31 by CHRISTIANO JensenC) Central chest pain (Acute) Chest pain (Acute) CAD (coronary artery disease) (Chronic) Carotid stenosis (Acute) Pure hypercholesterolemia (Chronic) Essential (primary) hypertension (Chronic) Nonrheumatic mitral valve regurgitation (Chronic) 1+ per echo 11/15/17 @ [facility]; EF 55-60%, Atherosclerotic heart disease of [place] coronary artery without angina pectoris (Chronic 11/17/17) Pedicled ARZOLA graft to LAD, SVG to ramus branch(diagonal) per Dr. Enrique Baltazar @ [facility] You will use the following diet at home:: Cardiac Your food should be the consistency of: Regular Your liquids should be the consistency of: Regular/Thin Discharge Activity: Return to Normal Activity Weight Bearing Status: Weight bearing as tolerated Call your doctor if you observe: Numbness or Tingling, Shortness of breath, Chest pain Instructions: ED Chest Pain Angina Stable, Discharge Instructions for Angina Additional Instructions: follow up with Dr Carpio; will need a repeat carotid Duplex US in 6 months Allergies/Adverse Reactions: Allergies No Known Allergies Allergy (Verified 06/24/18 07:01) Medications to take at Discharge aspirin 81 mg tablet,delayed release 162 mg PO DAILY tab 12/27/17 metoprolol tartrate 50 mg tablet 50 mg PO BID #180 tab 02/22/18 [place]-3 1 tab PO DAILY 06/24/18 Atorvastatin Calcium [Lipitor] 40 mg PO QHS #30 tablet 06/27/18 The following prescriptions were given: Atorvastatin Calcium [Lipitor] 40 mg PO QHS #30 tablet Primary Care Physician: Nichelle Patel MD [Primary Care Provider] - Please follow up with your Primary Care Physician in: one week Test Results: Test results from this visit will be discussed in further detail at your follow-up appointment, if applicable. Please Follow Up With: Bill Carpio MD When: 2-3 weeks Please Follow Up With: Osvaldo Fang MD When: 1-2 weeks Proposed Discharge Date: 06/27/18
--- NOTE | 2018-06-27 13:35 | DCINST_ITS ---
- Discharge Diagnoses Current Active Problems: Current Active and Chronic Problems (Last Updated 12/29/17 @ 11:31 by CHRISTIANO JensenC) Central chest pain (Acute) Chest pain (Acute) CAD (coronary artery disease) (Chronic) Carotid stenosis (Acute) Pure hypercholesterolemia (Chronic) Essential (primary) hypertension (Chronic) Nonrheumatic mitral valve regurgitation (Chronic) 1+ per echo 11/15/17 @ [facility]; EF 55-60%, Atherosclerotic heart disease of [place] coronary artery without angina pectoris (Chronic 11/17/17) Pedicled ARZOLA graft to LAD, SVG to ramus branch(diagonal) per Dr. Enrique Baltazar @ [facility] You will use the following diet at home:: Cardiac Your food should be the consistency of: Regular Your liquids should be the consistency of: Regular/Thin Discharge Activity: Return to Normal Activity Weight Bearing Status: Weight bearing as tolerated Call your doctor if you observe: Numbness or Tingling, Shortness of breath, Chest pain Instructions: ED Chest Pain Angina Stable, Discharge Instructions for Angina Additional Instructions: follow up with Dr Carpio; will need a repeat carotid Duplex US in 6 months Allergies/Adverse Reactions: Allergies No Known Allergies Allergy (Verified 06/24/18 07:01) Medications to take at Discharge aspirin 81 mg tablet,delayed release 162 mg PO DAILY tab 12/27/17 metoprolol tartrate 50 mg tablet 50 mg PO BID #180 tab 02/22/18 [place]-3 1 tab PO DAILY 06/24/18 Atorvastatin Calcium [Lipitor] 40 mg PO QHS #30 tablet 06/27/18 The following prescriptions were given: Atorvastatin Calcium [Lipitor] 40 mg PO QHS #30 tablet Primary Care Physician: Nichelle Patel MD [Primary Care Provider] - Please follow up with your Primary Care Physician in: one week Test Results: Test results from this visit will be discussed in further detail at your follow- up appointment, if applicable. Please Follow Up With: Bill Carpio MD When: 2-3 weeks Please Follow Up With: Osvaldo Fang MD When: 1-2 weeks Proposed Discharge Date: 06/27/18
--- NOTE | 2018-06-27 13:36 | DS.PCM_ITS ---
Discharge Date and Diagnosis Date of Admission: 06/24/18 Date of Discharge: 06/27/18 - Primary Discharge Diagnosis Active and Suspected Problems (Last Updated 12/29/17 @ 11:31 by CHRISTIANO Jensen C) Central chest pain (Acute) Chest pain (Acute) Carotid stenosis (Acute) TIA complex migraine - Secondary Discharge Diagnosis Chronic Problems (Last Updated 12/27/17 @ 09:56 by Anna Marie Lai) CAD (coronary artery disease) (Chronic) Pure hypercholesterolemia (Chronic) Essential (primary) hypertension (Chronic) History of left heart catheterization (Chronic 11/15/17) 02/13/[address] Choe @ [facility]: 100% occlusion of LAD, recommend CABG but pt needed immediate surgery for right peritrochanteric femur fracture. Per Dr. Santillan @ [facility]:100% occlusion mid LAD, 70% stenosis in proximal LAD, good collaterals from mid PDA to distal LAD. History of kidney stones (Chronic) Nonrheumatic mitral valve regurgitation (Chronic) 1+ per echo 11/15/17 @ [facility]; EF 55-60%, Atherosclerotic heart disease of [place] coronary artery without angina pectoris (Chronic 11/17/17) Pedicled ARZOLA graft to LAD, SVG to ramus branch(diagonal) per Dr. 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 Enrique Baltazar @ [facility] Fracture, intertrochanteric, right femur (Chronic) Surgical repair 02/05/[address] Wolf, [facility] Hospital Course and Treatment Imaging Results: 06/27/18 08:21 Nuclear Stress Test - Treadmil [NM] Routine cardiology- Dr Vásquez Neurology- Dr Fang General surgery- Dr Kathy Carpio Operations: None Procedures: 2-D Echocardiogram Summary of Care Provided: The patient is a 68 year old M with a past medical history as listed which included CAD status post CABG x2 in October 2017. He was admitted with a complaint of chest pain which was worsened with mild exertion and assisted with shortness of breath. EKG showed no acute ST changes and troponins x3 were negative. Chest x-ray showed no acute cardia pulmonary disease as well. He was admitted on Tuesday for chest pain to rule out ACS. 2D echo done showed EF of 55% with segmental dysfunction and preserved EF and no evidence of diastolic dysfunction. Patient was scheduled to undergo a stress test. However the day before the stress test, patient developed a left-sided facial droop subsequently resolved. A stroke alert was called and CT of the brain done was negative for any evidence for stroke. MRI of the brain was also negative for stroke but MRA of the neck showed 50-69% stenosis of the origin of the left internal carotid artery. Carotid ultrasound done also confirmed this. Neurology was consulted by. Review, the MRA was normal and showed no significant stenosis. Urology thought that this was likely a complex migraine and recommended that patient be discharged only on aspirin and to not have Plavix as there was no proven stroke. General surgery also saw the patient and did not think the patient would need any carotid endarterectomy soon. They recommended the patient follows up with vascular surgery and about 6 months for repeat carotid ultrasound. Patient remained stable and had a stress test on 06/27/2018 which was negative. He was discharged home on 06/27/2018 and is follow-up with his primary care doctor, vascular surgery and neurology. Patient seen and examined prior to discharge. He had no complaints and felt well. Review of systems otherwise negative. Labs and vitals reviewed. Home medication reviewed and reconciled. o/e: Vital Signs Height 5 ft 7 in Weight: 173 lb 11.588 oz Weight in Pounds 173.7 lbs Pulse Ox 98 Temperature 98.2 F Pulse Rate 87 Respiratory Rate 16 Blood Pressure [2nd BP] 128/68 Blood Pressure [BP] 120/58 Blood Pressure 140/68 Blood Pressure Position [2nd Semi-Fowlers BP] Blood Pressure Position [BP] Semi-Fowlers Blood Pressure Position Supine [] General: Alert, Oriented x3, Cooperative, No apparent distress HEENT: Atraumatic, PERRLA, EOMI, Normocephalic Oral: Moist Mucosa Neck: Supple, No JVD, Negative Carotid Bruits Lungs: Clear to auscultation, Normal air movement, No rhonchi, No wheeze, No rales Cardiovascular: Regular rate, Regular Rhythm, Normal S1, Normal S2, No murmurs Abdomen: Bowel Sounds Present, Soft, Non Tender, Non-Distended, No Hepato- splenomegaly Extremities: No clubbing, No cyanosis, No edema, Capillary Refill Less than 3 Seconds Skin: No rashes, No breakdown Musculoskeletal: No Tenderness to Palpation of Joints or Extremities Lymphatic: No Cervical, Supraclavicular, or Inguinal Adenopathy Neurological: Cranial nerves II-XII grossly intact Psych/Mental Status: Normal Affect, Appropriate, Alert and oriented to time, place, person, mood and affect Plan as above. He was given a prescription for atorvastatin. Patient had been on atorvastatin previously but stated that his mother had Alzheimer's so he did not want to get it. Patient was counseled that he needed to the statins in light of his history of CAD and also having had a TIA. - Physical Exam Vital Signs Temp Pulse Resp BP Pulse Ox 98.2 F 88 14 148/80 H 98 06/27/18 09:00 06/27/18 11:34 06/27/18 09:00 06/27/18 11:18 06/27/18 09:00 Oxygen Flow Rate (L/min) 2 Oxygen Delivery Method Room Air Weight: 173 lb 11.588 oz Body Mass Index (BMI) 27.1 Finger Stick Blood Glucose 93 Intake and Output for Last 24 Hours 06/25/18 06/26/18 06/27/18 23:59 23:59 23:59 Intake Total 1676 / 1676 1459 / 1459 60 / 60 Output Total 2 / 575 / 575 Balance 1674 / 1674 1459 / 1459 -515 / -515 Laboratory Tests Past 24 Hrs 06/27/18 06/27/18 06/27/18 05:40 05:40 05:40 WBC 6.8 RBC 4.46 L Hgb 12.9 L Hct 40.0 MCV 89.7 MCH 28.9 MCHC 32.3 RDW 13.9 RDW Differential 45.9 H Plt Count 224 MPV 10.4 Immature Gran % (Auto) 0.100 Neut % (Auto) 68.0 Lymph % (Auto) 20.4 [place] % (Auto) 7.2 Eos % (Auto) 3.7 Baso % (Auto) 0.6 Absolute Neuts (auto) 4.6 Absolute Lymphs (auto) 1.39 Total Counted Not Reportable PT 13.2 INR 1.0 APTT 34.2 Sodium 141 Potassium 3.8 Chloride 109 H Carbon Dioxide 25.0 Anion Gap 7 BUN 13 Creatinine 0.89 Estim Creat Clear Calc 76.33 Est GFR (MDRD) Af Amer 110 Est GFR (MDRD) Non-Af 91 BUN/Creatinine Ratio 14.6 Glucose 99 Calcium 8.6 Discharge Diet: Low fat/ Low Cholesterol Discharge Activity: Return to Normal Activity Weight Bearing Status: Weight bearing as tolerated Call your doctor if you observe: Numbness or Tingling, Shortness of breath, Chest pain Home Medications: Medications to take at Discharge aspirin 81 mg tablet,delayed release 162 mg PO DAILY tab 12/27/17 metoprolol tartrate 50 mg tablet 50 mg PO BID #180 tab 02/22/18 [place]-3 1 tab PO DAILY 06/24/18 Atorvastatin Calcium [Lipitor] 40 mg PO QHS #30 tablet 06/27/18 Following Prescrptions Were Given to Patient: Atorvastatin Calcium [Lipitor] 40 mg PO QHS #30 tablet Primary Care Physician: Nichelle Patel MD [Primary Care Provider] - Please follow up with your Primary Care Physician in: one week Please Follow Up With: Bill Carpio MD When: 2-3 weeks Please Follow Up With: Osvaldo Fagn MD When: 1-2 weeks Patient Instructions: Discharge Instructions for Angina, ED Chest Pain Angina Stable Disposition: Home Minutes spent on discharge:: 45 Patient Condition:: Stable Medical Necessity - Tobacco Use Smoking Status: Former smoker Meaningful Use Info Meaningful Use Diagnoses (Choose all that apply): None applicable Code Visit Inpatient E&M: 03185 Disch Hosp
== END 2018-06-27 14:35 | disposition home or self-care (01) | DRG 313 ==
LOC: ED 08:21 → PCU 08:45
PROVIDERS: Admitting Provider Internal Medicine; Emergency Provider Emergency Medicine; Family Provider Student in an Organized Health Care Education/Training Program; PCP Student in an Organized Health Care Education/Training Program; Visit Provider Student in an Organized Health Care Education/Training Program
DX: R07.89 Other chest pain (principal); I25.10 Atherosclerotic heart disease of native coronary artery without angina pectoris; I10 Essential (primary) hypertension; G43.809 Other migraine, not intractable, without status migrainosus; E78.5 Hyperlipidemia, unspecified; I65.22 Occlusion and stenosis of left carotid artery; Z87.442 Personal history of urinary calculi; Z95.1 Presence of aortocoronary bypass graft; Z87.891 Personal history of nicotine dependence
CPT/HCPCS: 36415; 70450; 70544; 70547; 70551; 71045; 78452; 80048; 80061; 82962; 84443; 84484; 85025; 85610; 85730; 93005; 93017; 93306; 93880; 99285; A9500; J7030; Q9957; A4216; C8929

== ENCOUNTER → 2018-09-22 20:51 | Outpatient (CLI) | payer SELFPAY ==
[2018-07-24 13:20] VITALS: BMI 27.2
== END ==
PROVIDERS: Family Provider Student in an Organized Health Care Education/Training Program; PCP Student in an Organized Health Care Education/Training Program; Referring Provider Nurse Practitioner Family; Visit Provider Nurse Practitioner Family
DX: G47.33 Obstructive sleep apnea (adult) (pediatric) (principal)
CPT/HCPCS: 95811

== ENCOUNTER → 2018-09-23 05:53 | Outpatient (CLI) | payer OTHER, SELFPAY ==
[2018-07-24 13:20] VITALS: BMI 27.2
[2018-09-23 06:36] LABS: AST(SGOT) 5 U/L (15-37); Alanine Aminotransfer ALT/SGPT 24 U/L (16-61); Albumin, Serum 3.7 g/dL (3.2-5.0); Alkaline Phosphatase 74 U/L (45-117); Bilirubin, Direct 0.19 mg/dL (0.00-0.30); Cholesterol 261 mg/dL (200); Globulin 3.8 g/dL (2.2-4.2); High Density Lipoprotein 49 mg/dL; Protein, Total 7.5 g/dL (6.4-8.2); Triglycerides 142 mg/dL; Very Low Density Lipoprotein 28 mg/dL (5-40)
== END ==
PROVIDERS: Family Provider Student in an Organized Health Care Education/Training Program; PCP Student in an Organized Health Care Education/Training Program; Visit Provider Internal Medicine Cardiovascular Disease
DX: E78.00 Pure hypercholesterolemia, unspecified (principal); I10 Essential (primary) hypertension; Z95.1 Presence of aortocoronary bypass graft
CPT/HCPCS: 36415; 80061; 80076

== ENCOUNTER 2018-09-30 18:44 | Emergency (ER) | payer OTHER, SELFPAY ==
[2018-07-24 13:20] VITALS: BMI 27.2
[2018-09-30 18:45] VITALS: BP 148/83; PULSE 72; RESP 16; TEMP 37; O2SAT 95; BMI 28.0
--- NOTE | 2018-09-30 18:48 | RAD_ITS ---
STUDY: X-RAY - RIGHT HAND REASON FOR EXAM: Male, 68 years old. Saw injury TECHNIQUE: 3 view(s) of the hand. COMPARISON: None. FINDINGS: Normal radiocarpal articulation. Normal distal radioulnar joint. Normal visualized carpal bones. Normal carpal articulations Normal carpometacarpal articulation of the thumb. Normal second through fifth carpometacarpal joints. Normal metacarpi. Normal metacarpophalangeal joint of the thumb. Normal interphalangeal joint of the thumb. Normal proximal and distal phalanges of the thumb. Normal metacarpophalangeal joints of the second through fifth fingers. Normal proximal and distal interphalangeal joints of the second through fifth fingers. There is fracture with loss of bone substance of the second distal phalanx. There is significant associated soft tissue injury. There also appears to be a chip fracture of the tuft of the third distal phalanx with overlying soft tissue injury. There is a small metallic foreign body of the web between the first and second fingers measuring 5 mm. RAD/Hand Min 3 Views IMPRESSION: Severe comminuted fracture with loss of bone substance of the second distal phalanx. There is associated significant soft tissue injury. There also appears to be a tiny chip fracture of the tuft of the third distal phalanx. There is minimal associated soft tissue injury at the tip of the third finger. Electronically Signed: Vamshi Falk MD at 19:42 EDT , Service support ,
--- NOTE | 2018-09-30 19:04 | ED.DCSUM_ITS ---
- ER Visit Summary Date of Service: 09/30/18 Chief Complaint: Right hand laceration History of Present Illness: The patient is a 68 M who presents with a laceration to his right index and middle fingers that occurred today. Patient cut his fingers with a table saw. Patient admits to some numbness and tingling in his fingers. Patient denies any weakness. Patient describes the pain as aching. Patient states the pain is worse with movement. Physical Examination: Vital signs are stable. Patient is afebrile. Patient is in no acute distress. Examination of the right hand reveals a 3 cm full- thickness linear laceration on the radial aspect of the distal phalanx of the right index finger. There is a 2 cm laceration over the distal phalanx of the right long finger over the nailbed. There is no active bleeding noted. There are no foreign bodies noted. Sensation was intact to light touch in all digits. Capillary refill is less than 2 seconds in all digits. Test Results: X-rays of the right hand were obtained. There is a small tuft fracture of the distal phalanx of the third finger. There is a fracture of the distal phalanx of the index finger with loss of bone tissue. Emergency Department Course and Treatment: Patient was given a dose of Ancef here. The index and middle fingers were anesthetized with 1% lidocaine via digital block. The index finger was closed with 11 simple interrupted #4-0 n ylon sutures under sterile technique. The middle finger was closed with 2 simple interrupted #4-0 nylon sutures. There is loss of soft tissue on the dorsal aspect of the middle finger over the nailbed and nail plate. Xeroform gauze dressings were applied. Tubegauz dressings were applied. Case was discussed with Dr. San. He preferred to have the patient follow-up with a hand surgeon. Case was discussed with Dr. Rolle hand surgeon from [facility]. He agreed with the plan and will follow up with the patient. Patient was instructed to call his office Tuesday morning. Patient was given a prescription for Keflex. Patient was also given a prescription for a short course of [place]. Patient and family understood and were agreeable with the plan. All questions were answered. Disposition: Discharge home Impression: Open fractures right second and third distal phalanges This note was generated with [employer] software. It may contain incorrect words, spelling, and punctuation that were not noted in review of the chart prior to signing ED Disposition - Plan for ED Patient: Disposition: Home or Assisted Living Diagnosis: Open fracture of distal phalanx of digit of right hand Instructions: FRACTURE, Finger (Open) Prescriptions: Cephalexin [Keflex] 500 mg PO Q6 #40 cap Prescription Printed Hydrocodone Bitart/Apap 5-325 [[place] 5MG-325MG] 1 tab PO Q6H PRN PRN 3 Days #10 tab PRN Reason: Pain Prescription Printed Referrals: Nichelle Patel MD [NON-STAFF] - 2 Days Betito Rolle MD [NON-STAFF] - 2 Days
[2018-09-30] MEDS: Cefazolin 1 GM/50 ML BAG IV (19:40)
[2018-09-30 22:59] VITALS: BP 151/88; PULSE 66; RESP 14
== END 2018-09-30 22:59 | disposition home or self-care (01) ==
PROVIDERS: Emergency Provider Emergency Medicine
DX: S62.630B Displaced fracture of distal phalanx of right index finger, initial encounter for open fracture (principal); S62.632B Displaced fracture of distal phalanx of right middle finger, initial encounter for open fracture; W31.2XXA Contact with powered woodworking and forming machines, initial encounter; Y93.9 Activity, unspecified; Y92.9 Unspecified place or not applicable; Y99.0 Civilian activity done for income or pay; I25.10 Atherosclerotic heart disease of native coronary artery without angina pectoris; I10 Essential (primary) hypertension; Z95.1 Presence of aortocoronary bypass graft; Z79.82 Long term (current) use of aspirin; Z79.899 Other long term (current) drug therapy
CPT/HCPCS: 12002; 73130; 96365; 99285; J7050; A4216

== ENCOUNTER → 2019-01-31 06:18 | Outpatient (CLI) | payer OTHER, SELFPAY ==
[2019-01-31 07:05] LABS: AST(SGOT) 7 U/L (15-37); Alanine Aminotransfer ALT/SGPT 28 U/L (16-61); Albumin, Serum 3.6 g/dL (3.2-5.0); Alkaline Phosphatase 64 U/L (45-117); Bilirubin, Direct 0.19 mg/dL (0.00-0.30); Cholesterol 245 mg/dL (200); Globulin 3.8 g/dL (2.2-4.2); High Density Lipoprotein 45 mg/dL; Protein, Total 7.4 g/dL (6.4-8.2); Triglycerides 122 mg/dL; Very Low Density Lipoprotein 24 mg/dL (5-40)
== END ==
PROVIDERS: Referring Provider Internal Medicine Cardiovascular Disease; Visit Provider Internal Medicine Cardiovascular Disease
DX: E78.00 Pure hypercholesterolemia, unspecified (principal); I25.10 Atherosclerotic heart disease of native coronary artery without angina pectoris
CPT/HCPCS: 36415; 80061; 80076

== ENCOUNTER → 2019-04-13 06:25 | Outpatient (CLI) | payer OTHER, SELFPAY ==
[2019-02-15 10:26] VITALS: BMI 29.3
[2019-04-13 08:18] LABS: AST(SGOT) 5 U/L (15-37); Alanine Aminotransfer ALT/SGPT 26 U/L (16-61); Albumin, Serum 3.6 g/dL (3.2-5.0); Alkaline Phosphatase 66 U/L (45-117); Bilirubin, Direct 0.16 mg/dL (0.00-0.30); Cholesterol 264 mg/dL (200); Globulin 3.8 g/dL (2.2-4.2); High Density Lipoprotein 46 mg/dL; Protein, Total 7.4 g/dL (6.4-8.2); Triglycerides 132 mg/dL; Very Low Density Lipoprotein 26 mg/dL (5-40)
== END ==
PROVIDERS: Referring Provider Internal Medicine Cardiovascular Disease; Visit Provider Internal Medicine Cardiovascular Disease
DX: E78.00 Pure hypercholesterolemia, unspecified (principal)
CPT/HCPCS: 36415; 80061; 80076

== ENCOUNTER → 2019-12-21 06:08 | Outpatient (CLI) | payer OTHER, SELFPAY ==
[2019-12-05 12:03] VITALS: BMI 28.1
[2019-12-21 07:56] LABS: AST(SGOT) 10 U/L (15-37); Alanine Aminotransfer ALT/SGPT 27 U/L (16-61); Albumin, Serum 3.7 g/dL (3.2-5.0); Alkaline Phosphatase 83 U/L (45-117); Bilirubin, Direct 0.19 mg/dL (0.00-0.30); Cholesterol 230 mg/dL (200); Globulin 4.1 g/dL (2.2-4.2); High Density Lipoprotein 43 mg/dL; Protein, Total 7.8 g/dL (6.4-8.2); Triglycerides 121 mg/dL; Very Low Density Lipoprotein 24 mg/dL (5-40)
== END ==
PROVIDERS: Referring Provider Nurse Practitioner Family; Visit Provider Nurse Practitioner Family
DX: E78.00 Pure hypercholesterolemia, unspecified (principal); I25.10 Atherosclerotic heart disease of native coronary artery without angina pectoris
CPT/HCPCS: 36415; 80061; 80076

== ENCOUNTER 2020-03-08 10:43 | Emergency (ER) | payer OTHER, SELFPAY ==
[2019-12-05 12:03] VITALS: BMI 28.1
[2020-03-08 10:44] VITALS: BP 134/86; PULSE 61; RESP 17; TEMP 36.4; O2SAT 99; BMI 26.2
--- NOTE | 2020-03-08 10:56 | ED.DCSUM_ITS ---
History of Present Illness Chief Complaint: Chest Pain Informant: Patient Narrative: 69-year-old male presents for the evaluation of chest pain/palpitations. Patient states for at least the past month if not longer he is felt that his heart rate is too high and his heart is beating strongly. He states it feels different than it has in the past. He notes some soreness over the anterior chest into his shoulder and neck today. He states it is tender to palpation and with range of motion. Patient has had a vessel CABG. He follows locally with cardiology. He denies any shortness of breath. He states that he has not had any difficulty ambulating and the more he walks the better he feels. Patient denies any PE risk factors. He has been compliant with his medications. He has not discussed the symptoms with his computer service technician. - Past Medical History (1) CAD (coronary artery disease) Status: Chronic (2) Carotid stenosis Status: Chronic (3) Pure hypercholesterolemia Status: Chronic (4) Essential (primary) hypertension Status: Chronic (5) Nonrheumatic mitral valve regurgitation Status: Chronic Comment: 1+ per echo 11/15/17 @ [facility]; EF 55-60%, (6) S/P CABG x 2 Status: Chronic Comment: Pedicled ARZOLA graft to LAD, SVG to ramus branch(diagonal) per Dr. Enrique Baltazar @ [facility] Past Medical History - Allergies and Home Meds Allergies/Adverse Reactions: Allergies No Known Allergies Allergy (Verified 03/08/20 10:43) Primary Care Physician: Care Physician,No Primary [Primary Care Provider] - Prior records reviewed: Yes Surgical History: coronary bypass surgery - October 2017, two-vessel Lives: With Family Smoking Status: Never smoker Drugs: None - Family History Maternal Family History: Family History (Last Reviewed 07/30/19 @ 11:00 by Anna Marie Lai) Father CVA (cerebral vascular accident) Mother HEART DISE Other Cancer Heart disease Family History: Reports: No pertinent history Paternal Family History: Family History (Last Reviewed 07/30/19 @ 11:00 by Anna Marie Lai) Father CVA (cerebral vascular accident) Mother HEART DISE Other Cancer Heart disease Family History: Reports: No pertinent history Review of Systems General: Denies: Chills, Fever, Sweats Eyes: Denies: Visual changes - bilaterally, Diplopia ENT: Denies: Rhinorrhea, Sore throat Cardiovascular: Reports: Chest pain, Palpitations Respiratory: Denies: Dyspnea, Cough, Dyspnea on exertion Gastrointestinal: Denies: Abdominal pain, Nausea, Vomiting, Diarrhea, Melena, Hematochezia Genitourinary: Denies: Dysuria, Hematuria, Frequency Musculoskeletal: Denies: Back pain, Extremity Pain Skin: Denies: Rash, Wounds Neurological: Denies: Headache, Weakness, Numbness Physical Exam Vital Signs/Narrative: Vital Signs Temp Pulse Resp BP Pulse Ox 03/08/20 10:44 97.5 F L 61 17 134/86 H 99 Inital Vital Signs reviewed: Yes General: Well nourished, Well developed, No Acute Distress Head: Normocephalic, Atraumatic Eyes: Perrl, EOMI ENT: Moist mucous membranes, No rhinorrhea Neck: Supple, Nontender Cardiovascular: Regular rate, Regular rhythm, No murmurs Respiratory: No distress, CTA bilaterally, Chest tenderness Abdomen: Soft, Nontender, Nondistended, Normal bowel sounds Back: Nontender, Normal Inspection Extremities: Nontender, No edema Skin: Normal color, No rash Neurological: Alert, Oriented x3, Cranial nerves II-XII grossly intact, Normal Strength, Normal Sensation Psychological: Normal affect, Normal Mood Diagnostic/Tx/Re-eval Clinical Impression(s) from Imaging Studies Chest X-Ray 03/08/20 11:10 IMPRESSION: No active disease. Electronically Signed: Deon Regan MD at 11:47 EST Tel , Service support , Laboratory Last Values WBC 6.3 K/mm3 (4.4-11.0) 03/08/20 11:00 RBC 4.73 M/mm3 (4.6-6.2) 03/08/20 11:00 Hgb 14.0 g/dL (13.0-16.5) 03/08/20 11:00 Hct 43.6 % (40-54) 03/08/20 11:00 MCV 92.2 fL (80-94) 03/08/20 11:00 MCH 29.6 pg (27.0-32.0) 03/08/20 11:00 MCHC 32.1 g/dL (32-36) 03/08/20 11:00 RDW Std Deviation 44.9 fl (35.1-43.9) H 03/08/20 11:00 RDW Coeff of [place]ela 13.1 % (11.6-14.6) 03/08/20 11:00 Plt Count 244 K/mm3 (150-450) 03/08/20 11:00 MPV 10.4 fl (6.2-12.0) 03/08/20 11:00 Immature Gran % (Auto) 0.300 % (0.0-0.9) 03/08/20 11:00 Neut % (Auto) 67.2 % (47-70) 03/08/20 11:00 Lymph % (Auto) 20.0 % (19-41) 03/08/20 11:00 [place] % (Auto) 8.8 % (0-10) 03/08/20 11:00 Eos % (Auto) 3.4 % (0-5) 03/08/20 11:00 Baso % (Auto) 0.3 % (0-1) 03/08/20 11:00 Absolute Neuts (auto) 4.2 X10^3/uL (2.0-7.7) 03/08/20 11:00 Absolute Lymphs (auto) 1.25 X10^3/uL (0.83-4.51) 03/08/20 11:00 Nucleated RBC % 0 % (0-5) 03/08/20 11:00 Sodium 139 mmol/L (136-145) 03/08/20 11:00 Potassium 3.8 mmol/L (3.5-5.1) 03/08/20 11:00 Chloride 105 mmol/L (98-107) 03/08/20 11:00 Carbon Dioxide 30.0 mmol/L (21.0-32.0) 03/08/20 11:00 Anion Gap 4 (5-15) L 03/08/20 11:00 BUN 16 mg/dL (7-18) 03/08/20 11:00 Creatinine 1.03 mg/dL (0.70-1.30) 03/08/20 11:00 Estim Creat Clear Calc 67.33 ml/min 03/08/20 11:00 Est GFR (MDRD) Af Amer 92 mL/min (>60) 03/08/20 11:00 Est GFR (MDRD) Non-Af 76 mL/min (>60) 03/08/20 11:00 BUN/Creatinine Ratio 15.5 RATIO (10-20) 03/08/20 11:00 Glucose 99 mg/dL (74-106) 03/08/20 11:00 Calcium 9.0 mg/dL (8.5-10.1) 03/08/20 11:00 Magnesium 2.4 mg/dL (1.6-2.6) 03/08/20 11:00 Troponin I < 0.015 ng/mL (<0.045) 03/08/20 11:00 - EKG Initial EKG Interpretation: Sinus Rhythm - EKG demonstrates a normal sinus rhythm at a rate of 60 bpm. No ectopy or concerning features of ACS noted. - Medical Decision Making My interpretation of the single view chest x-ray was no acute disease and radiology agrees. Basic blood work including cardiac enzymes of troponin were n egative. Patient's EKG appears unchanged from prior. The patient was observed on the monitor has remained in a heart rate of the mid 60s. At this point I think the patient can be safely discharged home. He is instructed to follow-up with cardiology. He states that a lot of the times when he lays down at night is when he feels that and he is very anxious and was wondering if he could try something for the anxiety and see if that improves his symptoms. I think that this is reasonable I will write him for a few Xanax. ED Disposition - Plan for ED Patient: Disposition: Home or Assisted Living Diagnosis: Chest pain, Palpitations, Anxiety Instructions: ED Chest Pain, Uncertain Cause Prescriptions: Alprazolam [Xanax] 0.5 mg PO QHS PRN #10 tab PRN Reason: Anxiety Prescription Printed Referrals: Bubba Vásquez MD [STAFF PHYSICIAN] - (call the office on Tuesday to arrange follow up)
--- NOTE | 2020-03-08 10:56 | EKG12_ITS ---
Test Reason : CP Blood Pressure : / mmHG Vent. Rate : 060 BPM Atrial Rate : 060 BPM P-R Int : 162 ms QRS Dur : 090 ms QT Int : 408 ms P-R-T Axes : 031 026 076 degrees QTc Int : 408 ms Normal sinus rhythm Normal ECG Confirmed by TASHA RIBERA, YEIMI ([id number]), fashion editor BRENDAN GUPTA ([id number]) on 03/12/2020 9:26:50 AM Referred By: DREAD Confirmed By:YEIMI CORDOVA MD
[2020-03-08 11:02] VITALS: PULSE 62; RESP 14; O2SAT 99
--- NOTE | 2020-03-08 11:10 | RAD_ITS ---
STUDY: X-RAY CHEST REASON FOR EXAM: Male, 69 years old. PALPITATIONS TECHNIQUE: Single AP portable view of the chest. COMPARISON: 06/24/2018 FINDINGS: Status post median sternotomy. The lungs are clear and expanded. There is no demonstrated pleural abnormality. Normal size heart. Normal mediastinum and mary. Normal visualized pulmonary arteries. Normal visualized aortic arch and descending thoracic aorta. Normal visualized thoracic spine. Normal visualized ribs, clavicles, and shoulders. There is no demonstrated abnormality of the visualized soft tissue structures of the upper abdomen. RAD/Chest 1 View (Portable) IMPRESSION: No active disease. Electronically Signed: Deon Regan MD at 11:47 EST Tel , Service support ,
[2020-03-08 11:15] LABS: Absolute Lymphocyte Count 1.25 X10^3/uL (0.83-4.51); Absolute Neutrophil Count 4.2 X10^3/uL (2.0-7.7); Basophil# 0.02 X10^3/uL; Basophil% 0.3 % (0-1); Eosinophil# 0.21 X10^3/uL; Eosinophils% 3.4 % (0-5); Hematocrit 43.6 % (40-54); Lymphocyte # 1.25 X10^3/ul (4.0); Mean Corp Hgb Conc 32.1 g/dL (32-36); Mean Corpuscular Hgb 29.6 pg (27.0-32.0); Mean Corpuscular Volume 92.2 fL (80-94); Mean Platelet Vol. 10.4 fl (6.2-12.0); Monocyte# 0.55 X10^3/uL; Monocyte% 8.8 % (0-10); NRBC Flagged by Analyzer 0 % (0-5); Neutrophil % 67.2 % (47-70); Platelet Count 244 K/mm3 (150-450); RBC Distribution Width CV 13.1 % (11.6-14.6); RBC Distribution Width SD 44.9 fl (35.1-43.9); Red Blood Count 4.73 M/mm3 (4.6-6.2); White Blood Count 6.3 K/mm3 (4.4-11.0)
[2020-03-08 11:28] LABS: Anion Gap 4 (5-15); BUN 16 mg/dL (7-18); BUN/Creat Ratio 15.5 RATIO (10-20); Chloride 105 mmol/L (98-107); Creatinine, Serum 1.03 mg/dL (0.70-1.30); EST Glomerular Filtration Rate 76 mL/min (>60); Est Glom Filt Rate - Afr Amer 92 mL/min (>60); Estimated Creatinine Clearance 67.33 ml/min; Glucose 99 mg/dL (74-106); Magnesium 2.4 mg/dL (1.6-2.6); Potassium 3.8 mmol/L (3.5-5.1); Sodium Level 139 mmol/L (136-145)
[2020-03-08 12:41] VITALS: BP 124/69; PULSE 59; RESP 16; O2SAT 98
== END 2020-03-08 12:51 | disposition home or self-care (01) ==
PROVIDERS: Emergency Provider Emergency Medicine
DX: R07.9 Chest pain, unspecified (principal); R00.2 Palpitations; F41.9 Anxiety disorder, unspecified; I25.10 Atherosclerotic heart disease of native coronary artery without angina pectoris; I10 Essential (primary) hypertension; E78.00 Pure hypercholesterolemia, unspecified; Z95.1 Presence of aortocoronary bypass graft; Z79.82 Long term (current) use of aspirin; Z79.899 Other long term (current) drug therapy
CPT/HCPCS: 71045; 80048; 83735; 84484; 85025; 93005; 99284; A4216

== ENCOUNTER → 2020-03-18 06:12 | Outpatient (CLI) | payer SELFPAY ==
[2020-03-12 11:30] VITALS: BMI 27.0
--- NOTE | 2020-03-18 08:33 | STRESSREP_ITS ---
Stress Test Report Date: 03-18-2020 Procedure: Exercise tolerance test/imaging study Indications: Chest pain; CAD; CABG Consent: Per the patient Procedure: The patient exercised on a Jose protocol for 9 minutes completing Stage III achieving a peak heart rate of 160 bpm (105% predicted maximal heart rate) with a peak blood pressure 188/70 mmHg and a peak MET capacity of 10 METs. The baseline ECG demonstrated normal sinus rhythm. The peak exercise ECG demonstrated no obvious ECG changes. There was a rare PVC during recovery. The functional capacity was considered good. There was mild chest discomfort during exercise and recovery. The examination was discontinued secondary to dyspnea. Impression: 1. Technically adequate (percent predicted maximal heart rate greater than 85%) exercise tolerance test 2. Peak exercise ECG with no obvious ECG changes 3. There was a rare PVC during recovery 4. Nuclear images pending Myocardial perfusion imaging study: Technique: The patient was injected with 11.6 mCi of technetium 99m Cardiolite and subsequently rest SPECT Cardiolite nuclear imaging was obtained in the horizontal long, vertical long, and short axis views. The patient exercised on a Jose protocol for 9 minutes completing Stage III achieving a peak heart rate of 160 bpm (105% predicted maximal heart rate) with a peak blood pressure 188/70 mmHg and a peak MET capacity of 10 METs. The patient was injected with 32.4 mCi of technetium 99m Cardiolite and subsequently stress SPECT Cardiolite nuclear imaging was obtained in the horizontal long, vertical long, and short axis views. A gated Cardiolite study at peak stress was obtained. Interpretation: Rest and stress SPECT Cardiolite nuclear imaging status post realignment, normalization, and attenuation correction, demonstrates the appearance of an area of diminished absence of myocardial perfusion/tracer uptake in portions of the distal anterior/anteroapical segments without significant change between rest and stress. There is diminished end systolic thickening and brightening in the aforementioned areas. The gated Cardiolite study demonstrates diminished myocardial thickening and inward wall motion in the aforementioned areas. The reported LVEF is 63%. Impression: 1. Rest and stress SPECT Cardiolite nuclear imaging demonstrate myocardial perfusion changes appearing compatible with an area of previous myocardial injury/infarction in portions of the distal anterior/anteroapical segments with no myocardial perfusion changes considered diagnostic for associated stress- induced myocardial ischemia. 2. The gated Cardiolite study reports an LVEF of 63%. This note was generated with Dragon dictation software. It may contain incorrect words, spelling, and punctuation that were not noted in checking the note before signing.
== END ==
PROVIDERS: Referring Provider Physician Assistant Medical; Visit Provider Physician Assistant Medical
DX: R07.9 Chest pain, unspecified (principal); I25.10 Atherosclerotic heart disease of native coronary artery without angina pectoris; I10 Essential (primary) hypertension; E78.00 Pure hypercholesterolemia, unspecified
CPT/HCPCS: 78452; 93017; A9500; A4216

== ENCOUNTER → 2020-08-19 06:22 | Outpatient (CLI) | payer OTHER, SELFPAY ==
[2020-07-23 11:01] VITALS: BMI 27.0
[2020-08-19 07:15] LABS: AST(SGOT) 8 U/L (15-37); Alanine Aminotransfer ALT/SGPT 21 U/L (16-61); Albumin, Serum 3.5 g/dL (3.2-5.0); Alkaline Phosphatase 73 U/L (45-117); Bilirubin, Direct 0.14 mg/dL (0.00-0.30); Cholesterol 264 mg/dL (200); Globulin 3.8 g/dL (2.2-4.2); High Density Lipoprotein 40 mg/dL; Protein, Total 7.3 g/dL (6.4-8.2); Triglycerides 239 mg/dL; Very Low Density Lipoprotein 48 mg/dL (5-40)
== END ==
PROVIDERS: Referring Provider Internal Medicine Cardiovascular Disease; Visit Provider Internal Medicine Cardiovascular Disease
DX: E78.00 Pure hypercholesterolemia, unspecified (principal)
CPT/HCPCS: 36415; 80061; 80076

== ENCOUNTER 2021-07-13 09:50 | Outpatient (CLI) | payer SELFPAY ==
--- NOTE | 2021-07-13 09:55 | CDU_ITS ---
Reason For Study: Left carotid bruit Rt. Velocities/BP Lt. Velocities/BP Prox CCA 86.5/16 cm/sec. Prox CCA 99.2/25.6 cm/sec. Mid CCA 76/16 cm/sec. Mid CCA 95.9/20.1 cm/sec. Dist CCA 82.6/20 cm/sec. Dist CCA 95.9/19 cm/sec. Prox ICA 102.1/21.3 cm/sec. Prox ICA 76.1/20.1 cm/sec. Mid ICA 86.5/21.3 cm/sec. Mid ICA 79.4/22.3 cm/sec. Dist ICA 76/21.3 cm/sec. Dist ICA 75/24.5 cm/sec. Rt. ICA/CCA = 1.18. Lt. ICA/CCA = 0.83. Prox ECA 106/12.1 cm/sec. Prox ECA 95.9/12.4 cm/sec. Rt. Vert. 43/9 cm/sec. Lt. Vert. 36.9/10.7 cm/sec. Right Extracranial There is homogeneous, smooth atherosclerotic plaque noted in the right common carotid artery. There is heterogeneous, irregular atherosclerotic plaque noted in the right internal carotid artery. There is intimal thickening but no significant atherosclerotic plaque noted in the right external carotid artery. Antegrade flow is noted in the right vertebral artery. Left Extracranial There is homogeneous, smooth atherosclerotic plaque noted in the left common carotid artery. There is heterogeneous, irregular atherosclerotic plaque noted in the left internal carotid artery. There is intimal thickening but no significant atherosclerotic plaque noted in the left external carotid artery. Antegrade flow is noted in the left vertebral artery. Procedure Carotid Duplex 58532. This is a Carotid Duplex examination using B-mode, color flow and specral Doppler. Exam performed in department. VL/Carotid Duplex Ultrasound Interpretation Summary Minimal irregular plaque at the proximal right internal carotid artery with les s than 50% stenosis. Less than 50% stenosis right external carotid artery Minimal irregular plaque at the proximal left internal carotid artery with less than 50% stenosis Less than 50% stenosis left external carotid artery Patent and antegrade vertebral arteries bilaterally Ordering Physician: Dina Powell Performed By: Livia Gordon RVT
== END 2021-07-13 23:59 | disposition home or self-care (01) ==
LOC: CVS 09:54
PROVIDERS: Referring Provider Physician Assistant Medical; Visit Provider Physician Assistant Medical
DX: R09.89 Other specified symptoms and signs involving the circulatory and respiratory systems (principal)
CPT/HCPCS: 93880

== ENCOUNTER → 2022-11-15 | Outpatient (CLI) | payer SELFPAY | END | disposition home or self-care (01) | LOC: SL 13:45 | PROVIDERS: Visit Provider Family Medicine | DX: R69 Illness, unspecified (principal) ==

== ENCOUNTER → 2025-02-26 | Outpatient (CLI) | payer OTHER, SELFPAY ==
[2025-02-26 16:45] LABS: Hematocrit 41.3 % (40-54); Hemoglobin 13.2 g/dL (13.0-16.5); Immature Granulocytes Count 0.020 X10^3/uL (0.0-0.0); Mean Corp Hgb Conc 32.0 g/dL (32-36); Mean Corpuscular Volume 90.8 fL (80-94); Mean Platelet Vol. 11.1 fl (6.2-12.0); NRBC Flagged by Analyzer 0 % (0-5); Platelet Count 233 K/mm3 (150-450); RBC Distribution Width CV 13.1 % (11.6-14.6); RBC Distribution Width SD 43.3 fl (35.1-43.9); Red Blood Count 4.55 M/mm3 (4.6-6.2); White Blood Count 7.9 K/mm3 (4.4-11.0)
[2025-02-26 17:17] LABS: AST(SGOT) 19 U/L (<=37); Alanine Aminotransfer ALT/SGPT 44 U/L (<=46); Albumin, Serum 4.2 g/dL (3.4-4.8); Alkaline Phosphatase 80 U/L (40-129); Anion Gap 12 (5-15); BUN 25 mg/dL (4-19); BUN/Creat Ratio 25.6 RATIO (10-20); Calcium,Total 9.5 mg/dL (7.6-11.0); Carbon Dioxide 23.3 mmol/L (21.0-32.0); Chloride 105 mmol/L (98-108); Cholesterol 255 mg/dL (<=200); Globulin 3.2 g/dL (2.2-4.2); Glucose 100 mg/dL (70-99); Low Density Lipoprotein Calc. 166 mg/dL; Potassium 3.9 mmol/L (3.3-5.1); Triglycerides 251 mg/dL; Very Low Density Lipoprotein 50 mg/dL (5-40); cholesterol:hdl ratio screen 6.14
== END | disposition home or self-care (01) ==
LOC: LAB 15:49
PROVIDERS: Referring Provider Physician Assistant Medical; Visit Provider Physician Assistant Medical
DX: I10 Essential (primary) hypertension (principal); I25.10 Atherosclerotic heart disease of native coronary artery without angina pectoris; E78.00 Pure hypercholesterolemia, unspecified
CPT/HCPCS: 36415; 80053; 80061; 85025

== ENCOUNTER → 2025-03-18 | Outpatient (CLI) | payer SELFPAY, OTHER | END | disposition home or self-care (01) | LOC: CVS 10:54 | PROVIDERS: Referring Provider Physician Assistant Medical; Visit Provider Physician Assistant Medical | DX: G47.33 Obstructive sleep apnea (adult) (pediatric) (principal) | CPT/HCPCS: 94762 ==